=== PATIENT | female | born 1975 | race Caucasian/White ===

== ENCOUNTER → 2018-03-15 11:50 | Outpatient (CLI) | payer OTHER, SELFPAY ==
--- NOTE | 2018-03-17 16:48 | STRESSREP ---
Stress Test Report Treadmill EKG: Resting EKG: Normal sinus rhythm, normal intervals, no evidence of previous myocardial infarction. Treadmill EKG: The patient exercise according to Himanshu protocol for 9 minutes and 0 seconds achieving a maximum workload of 10.1 0 METS. Resting heart rate was initially 76 beats a minute elias to max of 1 71 bpm. This represented 97% of the maximal age-predicted heart rate. Resting blood pressure is 132/82, and elias to maximum 180/80. Test was terminated due to the attainment of target heart rate and dyspnea. During exercise the patient's heart rate increased as expected. Patient had subtle upsloping ST segment depression along the inferior lateral leads at peak exercise but did not reach criteria for ischemia. No arrhythmias noted. No anginal symptoms noted. Conclusions normal, adequate treadmill EKG. Negative for ischemia by EKG criteria. No anginal symptoms noted. No arrhythmias noted. Appropriate blood pressure response to exercise. Average exercise capacity for age. No complications.
== END ==
PROVIDERS: Family Provider Internal Medicine; PCP Internal Medicine
DX: R00.2 Palpitations (principal); R06.02 Shortness of breath; R07.9 Chest pain, unspecified
CPT/HCPCS: 93017; 93225; 93226

== ENCOUNTER 2018-12-22 14:39 | Emergency (ER) | payer OTHER, SELFPAY ==
[2018-12-22 14:40] VITALS: BP 150/96; PULSE 103; RESP 16; TEMP 36.8; O2SAT 99; BMI 29.5
--- NOTE | 2018-12-22 15:04 | CT_ITS ---
STUDY: CT BRAIN WITHOUT CONTRAST REASON FOR EXAM: Female, 43 years old. Weakness RADIATION DOSAGE (If Supplied By Facility): CTDIvol = ( 60.81 ) mGy, DLP = ( 1044.28 ) mGycm TECHNIQUE: Transaxial CT imaging of the brain was performed without administration of intravenous contrast material. Individualized dose optimization techniques were used for this CT. COMPARISON: No relevant priors. FINDINGS: Normal soft tissue structures. Normal calvarium. Normal size ventricles and extra-axial spaces for the patient's age. Normal white matter tracts of the cerebral hemispheres. Normal basal ganglia and thalami. Normal brainstem. Normal cerebellum. There is no intracranial hemorrhage. There are no findings of an acute ischemic infarction. Large mucous retention cyst in left maxillary sinus and mild mucosal thickening on the right. There is also mild mucosal thickening within left sphenoid sinus CT/Brain/Head without Contrast IMPRESSION: Normal unenhanced CT scan of the brain. Bilateral maxillary and left sphenoid sinus disease Electronically Signed: Armando Leon MD at 16:17 EDT , Service support ,
--- NOTE | 2018-12-22 15:04 | EKG12_ITS ---
Test Reason : DIZZINESS Blood Pressure : / mmHG Vent. Rate : 078 BPM Atrial Rate : 078 BPM P-R Int : 152 ms QRS Dur : 090 ms QT Int : 384 ms P-R-T Axes : 047 002 018 degrees QTc Int : 437 ms Normal sinus rhythm Nonspecific ST abnormality Abnormal ECG Confirmed by KATHLEEN LARSON ([id number]), content editor JULIANNE TROY ([id number]) on 12/25/2018 1:57:00 PM Referred By: AMMY Confirmed By:KATHLEEN LARSON
--- NOTE | 2018-12-22 15:09 | ED.DCSUM_ITS ---
- ER Visit Summary Date of Service: 12/22/18 Chief Complaint: Lightheaded, weak History of Present Illness: The patient is a 43 F who states she woke yesterday feeling lightheaded and weak. She is to hold onto things to go to the restroom. She laid in bed most of the day. She said she is a shaky feeling on the inside, worse on the left. She has an intermittent weightless feeling in her spine. Patient was seen by a neuromuscular specialist at the [facility] for paresthesias. She was told to be checked if she has any no neuro symptoms. She is to follow-up with him again in 6 months. Patient states symptoms are improved today but she is not yet back to baseline. She has had some mild d iarrhea but no abdominal pain. She denies vertigo. Physical Examination: Blood pressure is 150/96, heart rate 103. She is afebrile. Patient sitting upright in bed no acute distress. Head and neck examination is normal. Heart is regular rate and rhythm. Lung sounds are clear. Abdomen is soft nontender. Neuro exam reveals no deficits. Her NIH is 0. Patellar reflexes are 2+ bilaterally. Test Results: EKG is sinus at 78 with no acute ischemia. CBC and chemistry studies normal. Glucose is 119. Urinalysis normal. TSH normal at 2.43. CT the brain reveals normal brain. Bilateral maxillary and sphenoid sinus disease is noted. Emergency Department Course and Treatment: Patient was given IV fluids here. Test results are discussed with her. She does have symptoms of dizziness and does have worsening symptoms when she bends over and stands up. There is evidence of sinusitis on her CT scan. She will be treated with a course of Augmentin. Treatment Plan: [] Disposition: Discharge Impression: 1. Dizziness 2. Sinusitis This note was generated with [employer] dictation software. It may contain incorrect words, spelling, and punctuation that were not noted in review of the chart prior to signing ED Disposition - Plan for ED Patient: Disposition: Home or Assisted Living Instructions: ED Dizziness UKO, ED Sinusitis Abx Tx Prescriptions: Amox/Clavulanate Tablet [Augmentin Tablet] 875 mg PO Q12H #20 tablet Referrals: Mariposa Mckeon MD [Primary Care Provider] - 1 Week
[2018-12-22 15:24] LABS: Absolute Lymphocyte Count 1.53 X10^3/ul (0.83-4.51); Basophil# 0.02 X10^3/uL; Basophil% 0.3 % (0-1); Eosinophil# 0.12 X10^3/uL; Eosinophils% 1.7 % (0-5); Hemoglobin 13.5 g/dl (12.0-15.0); Lymphocyte # 1.53 X10^3/ul (4.0); Lymphocyte % 21.3 % (19-41); Mean Corp Hgb Conc 32.1 g/gl (32-36); Mean Corpuscular Hgb 27.4 pg (27.0-32.0); Mean Corpuscular Volume 85.2 fL (81-99); Monocyte# 0.55 X10^3/uL; Monocyte% 7.6 % (0-10); Neutrophil # 4.96 X10^3/uL (2.7-7.7); Neutrophil % 68.8 % (47-70); Platelet Count 441 K/mm3 (150-450); RBC Distribution Width CV 13.8 % (11.6-14.6); RBC Distribution Width SD 42.3 fl (35.1-43.9); Red Blood Count 4.93 M/mm3 (4.2-5.4); White Blood Count 7.2 K/mm3 (4.4-11.0)
[2018-12-22 15:34] LABS: POSITIVE COUNT NO; POSITIVE DIFFERENTIAL NO; POSITIVE MORPHOLOGY NO
[2018-12-22 15:46] LABS: Anion Gap 6 (5-15); BUN 16 mg/dL (7-18); BUN/Creat Ratio 16.6 RATIO (10-20); Calcium,Total 8.7 mg/dL (8.5-10.1); Chloride 107 mmol/L (98-107); Creatinine, Serum 0.97 mg/dL (0.55-1.02); EST Glomerular Filtration Rate 66 mL/min (>60); Est Glom Filt Rate - Afr Amer 80 mL/min (>60); Estimated Creatinine Clearance 68.56 ml/min; Glucose 119 mg/dL (74-106); Potassium 3.5 mmol/L (3.5-5.1); Sodium Level 139 mmol/L (136-145); Thyroid Stim Hormone (TSH) 2.43 uIU/mL (0.358-3.74)
[2018-12-22 16:12] LABS: Bacteria 0 SEEN /hpf (None Seen); Mucous, Urine 0 SEEN /hpf (<or=2+); Red Blood Cells-Urine 0 SEEN /hpf (0-5); White Blood Cells 0 SEEN /hpf (0-5)
[2018-12-22 16:21] LABS: Color, Urine Yellow (Yellow); Glucose, Dipstick Normal (Normal); Ketone-Dipstick Negative (Negative); Leukocyte Esterase-Dipstick Negative /ul (Negative); Nitrite-Dipstick Negative (Negative); Occult Blood-Urine 10 /ul (Negative); Protein-Dipstick Negative (Negative); Urine Bilirubin Dipstick Negative (Negative); Urine Clarity Clear (Clear); Urine Urobilinogen Normal (Normal); Urine pH 6.5 (5.0 - 8.0)
[2018-12-22 16:57] LABS: Squamous Epithelial Cells - UA 0-5 SEEN /hpf (5-10)
[2018-12-22] MEDS: Amox/Clavulanate 875 MG Tablet PO (17:40)
[2018-12-22 17:55] VITALS: BP 128/78; PULSE 75; RESP 16; O2SAT 99
== END 2018-12-22 18:01 | disposition home or self-care (01) ==
PROVIDERS: Emergency Provider Emergency Medicine; Family Provider Internal Medicine; PCP Internal Medicine
DX: R42 Dizziness and giddiness (principal); J32.0 Chronic maxillary sinusitis; J32.3 Chronic sphenoidal sinusitis; R53.1 Weakness; J45.909 Unspecified asthma, uncomplicated; G43.909 Migraine, unspecified, not intractable, without status migrainosus
CPT/HCPCS: 70450; 80048; 81001; 84443; 85025; 93005; 96360; 99285; J7030; J7040

== ENCOUNTER → 2021-03-23 12:50 | Outpatient (CLI) | payer OTHER, SELFPAY ==
[2021-03-23] MEDS: Methacholine Chloride 18 ml neb kit INHALATION (13:07)
--- NOTE | 2021-03-24 08:09 | BRONCHALL ---
Bronchoprovocation Challenge Bronchoprovocation Challenge Bronchoprovocation Challenge: INTRODUCTION: The patient is a 46-year-old female that presents for a bronchoprovocation challenge secondary to a diagnosis of shortness of breath. Respiratory therapist reported good patient effort and reproducible results. INTERPRETATION: Initial spirometry did not show any large airways obstructive ventilatory defect with preserved airflows throughout. The patient was then given progressively increasing doses of methacholine in a standardized fashion. At no point during testing to the patient's FEV1 drop to the threshold criteria to be considered a positive test. IMPRESSION: Negative methacholine challenge.
== END ==
PROVIDERS: PCP Internal Medicine; Referring Provider Internal Medicine; Visit Provider Internal Medicine
DX: R06.02 Shortness of breath (principal)
CPT/HCPCS: 94070; 95070

== ENCOUNTER → 2021-06-08 09:51 | Outpatient (CLI) | payer OTHER, SELFPAY ==
--- NOTE | 2021-06-08 10:01 | ECHOD_ITS ---
Reason For Study: Chest Pain Procedure This was a 2D Doppler, Color Flow transthoracic echocardiogram. Exam performed in department. Left Ventricle Normal LV size. Left ventricular systolic function is normal. The estimated ejection fraction is 65 %. Transmitral doppler flow suggestive of impaired relaxation of left ventricle. No regional wall motion abnormalities noted. Right Ventricle Normal RV size. Normal systolic function. Atria Normal left atrium. Normal right atrium. Normal atrial septum. Mitral Valve There is no mitral annular calcification. Normal mitral valve. Trivial mitral valve insufficiency. Tricuspid Valve Normal tricuspid valve. Trivial tricuspid valve insufficiency. Right ventricular systolic pressure estimated to be 21 mmHg. Aortic Valve Trisinus/trileaflet aortic valve. Normal aortic valve. Trivial aortic valve insufficiency. Pulmonic Valve The pulmonic valve is not well visualized. Trivial pulmonic valve insufficiency. Great Vessels Normal sized aortic root. Pericardium/Pleural No pericardial effusion. MMode/2D Measurements & Calculations LVIDd: 5.1 cm IVSd: 1.0 cm Ao root diam: 2.9 cm LVIDs: 2.8 cm LVPWd: 1.0 cm RVDd: 2.7 cm FS: 45.4 % LAV(MOD-sp4): 39.6 ml LVAd ap4: 24.3 cm2 LVAd ap2: 13.6 cm2 LVLd ap4: 7.4 cm LVLd ap2: 4.6 cm EDV(MOD-sp4): 66.8 ml EDV(MOD-sp2): 32.5 ml EDV(sp4-el): 67.5 ml EDV(sp2-el): 33.8 ml LVAs ap4: 13.3 cm2 LVLs ap4: 6.0 cm ESV(MOD-sp4): 25.6 ml ESV(sp4-el): 24.9 ml EF(MOD-sp4): 61.7 % EF(sp4-el): 63.1 % SV(MOD-sp4): 41.2 ml SV(sp4-el): 42.6 ml LA A4 area: 16.3 cm2 LA dimension(2D): 3.4 cm RA A4 area: 10.8 cm2 Doppler Measurements & Calculations MV E max jude: 71.7 cm/sec Lat Peak E' Jude: 9.9 cm/sec Med Peak E' Jude: 6.4 cm/sec MV A max jude: 94.5 cm/sec E/E' lat: 7.2 E/E' med: 11.2 MV E/A: 0.76 Ao V2 max: 135.2 cm/sec LV V1 max: 112.4 cm/sec PA V2 max: 121.3 cm/sec Ao max P.3 mmHg LV V1 max P.1 mmHg Ao V2 mean: 94.8 cm/sec Ao mean P.9 mmHg Ao V2 VTI: 26.3 cm TR max jude: 209.7 cm/sec TR max P.6 mmHg ECHO/Echo Complete Interpretation Summary Left ventricular systolic function is normal. The estimated ejection fraction is 65 %. Trivial mitral valve insufficiency. Trivial tricuspid valve insufficiency. Trivial aortic valve insufficiency. Trivial pulmonic valve insufficiency. Right ventricular systolic pressure estimated to be 21 mmHg. Transmitral doppler flow suggestive of impaired relaxation of left ventricle Ordering Physician: Matteo Varela Referring Physician: Mariposa Mckeon Performed By: Jaja Rouse, RDCS, RVT
== END ==
PROVIDERS: PCP Internal Medicine; Referring Provider Internal Medicine Cardiovascular Disease; Visit Provider Internal Medicine Cardiovascular Disease
DX: I20.9 Angina pectoris, unspecified (principal); R07.9 Chest pain, unspecified; R06.02 Shortness of breath; D68.59 Other primary thrombophilia
CPT/HCPCS: 93306

== ENCOUNTER → 2021-06-18 10:18 | Outpatient (CLI) | payer OTHER, SELFPAY ==
[2021-06-18 12:12] LABS: Hematocrit 42.2 % (37-47); Hemoglobin 13.5 g/dL (12.0-15.0); Mean Corpuscular Hgb 27.2 pg (27.0-32.0); Mean Corpuscular Volume 84.9 fL (81-99); Mean Platelet Vol. 9.4 fl (6.2-12.0); Platelet Count 467 K/mm3 (150-450); RBC Distribution Width CV 13.3 % (11.6-14.6); RBC Distribution Width SD 41.7 fl (35.1-43.9); Red Blood Count 4.97 M/mm3 (4.2-5.4); White Blood Count 6.6 K/mm3 (4.4-11.0)
[2021-06-18 12:47] LABS: AST(SGOT) 19 U/L (15-37); Alanine Aminotransfer ALT/SGPT 34 U/L (13-56); Albumin, Serum 3.9 g/dL (3.2-5.0); Alkaline Phosphatase 95 U/L (45-117); Anion Gap 6 (5-15); BUN 16 mg/dL (7-18); BUN/Creat Ratio 16.6 RATIO (10-20); Calcium,Total 9.2 mg/dL (8.5-10.1); Chloride 104 mmol/L (98-107); Creatinine, Serum 0.96 mg/dL (0.55-1.02); EST Glomerular Filtration Rate 66 mL/min (>60); Est Glom Filt Rate - Afr Amer 80 mL/min (>60); Globulin 4.1 g/dL (2.2-4.2); Glucose 113 mg/dL (74-106); Potassium 3.8 mmol/L (3.5-5.1); Sodium Level 138 mmol/L (136-145)
[2021-06-18 12:58] LABS: Vitamin B12 364 pg/mL (211-911)
== END ==
PROVIDERS: PCP Internal Medicine; Referring Provider Psychiatry & Neurology Neurology; Visit Provider Psychiatry & Neurology Neurology
DX: R25.1 Tremor, unspecified (principal); R20.0 Anesthesia of skin
CPT/HCPCS: 36415; 80053; 82607; 82746; 85027

== ENCOUNTER → 2021-07-10 12:57 | Outpatient (CLI) | payer OTHER, SELFPAY ==
--- NOTE | 2021-07-10 11:17 | CT_ITS ---
STUDY: CARDIAC CALCIUM SCORING - CT CHEST REASON FOR EXAM: Female, 46 years old. Angina pectoris LIMITED CT CHEST OVER READ ONLY RADIATION DOSAGE (If Supplied By Facility): CTDIvol = ( 23.37 ) mGy, DLP = ( 1195.05 ) mGycm TECHNIQUE: Axial non-enhanced images were acquired through the heart for the sole purpose of measuring coronary artery calcium. Individualized dose optimization techniques were used for this CT. COMPARISON: None. FINDINGS: Included portions of the lungs are clear. Airways are patent. Mediastinal contents are normal. Limited upper abdominal contents are unremarkable. IMPRESSION: Unremarkable extra cardiac portions of the scan. Please go to: [email or web address] , for a description of the calculator. Electronically Signed: Jesus Baker MD at 19:11 EST Tel , Service support , STUDY: CTA CORONARY REASON FOR EXAM: Female, 46 years old. Angina pectoris LIMITED CT CHEST OVER READ ONLY RADIATION DOSAGE (If Supplied By Facility): CTDIvol = ( 23.37 ) mGy, DLP = ( 1195.05 ) mGycm TECHNIQUE: Tomographic images were obtained of the heart and chest with a 64 detector row scanner using slice thicknesses of less than 1 mm. 50mL Isovue [id number] was injected in the arm. Post-processing of the angiographic images was performed, with multiplanar reformation and 3D reconstruction. Individualized dose optimization techniques were used for this CT. MEDICATION: HEART RATE AFTER MEDICATION: bpm TECHNICAL QUALITY: Excellent COMPARISON: None. CORONARY ANGIOGRAPHY: Coronary CT Angiogram Descriptors of Atherosclerosis: Stenosis: None (0%) Mild (< 50%) Moderate (50-70%) Severe (70-90%) Subtotal/Total Occlusion (90-100%) Non-Evaluable Plaque Characteristics: None Non-Calcified (Soft) Calcified Mixed FINDINGS: Included portions of the lungs are clear. Airways are patent. Mediastinal contents are normal. Limited upper abdominal contents are unremarkable. CT/Limited Chest CT w/CCTA IMPRESSION: Unremarkable extra cardiac portions of the scan. Electronically Signed: Jesus Baker MD at 19:11 EST Tel , Service support ,
[2021-07-10 13:14] VITALS: BP 169/89; PULSE 76; RESP 14; TEMP 37; O2SAT 99; BMI 32.3
[2021-07-10 13:38] VITALS: BP 169/89; PULSE 79
[2021-07-10] MEDS: Metoprolol Tartrate 5 MG/5 ML Vial IV (13:38)
[2021-07-10 13:39] VITALS: BP 169/89; PULSE 78
[2021-07-10] MEDS: Nitroglycerin SL (ED/IMG/CATH) 0.4 MG TABLET SL (13:39)
[2021-07-10 13:47] VITALS: BP 142/86; PULSE 69; RESP 16; O2SAT 96
--- NOTE | 2021-07-13 17:32 | CA.SCORE ---
Calcium Scoring Date of Study:: 07/10/21 Coronary Calcium Scoring: High-resolution Computed Tomographic imaging of the chest was performed on 07/10/2021 with particular attention paid to the coronary arteries. Images from the examination were analyzed for the presence and extent of coronary artery calcification , using coronary calcium quantification software. The patient tolerated the procedure well and there were no complications. The results of the coronary calcification analysis are provided below. Findings Coronary Artery Left Main (LM): 0 Left Anterior Descending (LAD): 0 Left Circumflex (LCX): 0 Right Coronary Artery (RCA): 0 Total Agatston Score: 0 Percentile Ranking: According to prepublished reference tables 50% of patients of the same gender and/or similar age had the same and/or lower scores. Calcium Scoring Interpretation: 0 No identifiable atherosclerotic plaque. Very low cardiovascular disease risk. <5% chance of presence coronary artery disease A Negative Examination 1-10 Minimal Plaque burden. Significant coronary artery disease very unlikely. 11-100 Mild plaque burden. Likely mild or minimal coronary atherosclerosis. 101-400 Moderate plaque burden Moderate non-obstructive coronary artery disease highly likely. Over 400 Extensive plaque burden. High likelihood of at least one significant coronary stenosis (>50% diameter) Calcium Score: 0 Negative Examination Conclusion: Continue cardiovascular risk factor value and care as deemed appropriate. This note was generated using a voice recognition system and there may be incorrect words, spelling or punctuation that were not noted when reviewing the office note prior to saving.
--- NOTE | 2021-07-13 17:34 | CCTA.WCONT ---
CCTA w/Cont Coronary Arteries Date of Study:: 07/10/21 Chest Pain Consent:: Per Patient High resolution CT imaging of the chest was performed on 07-10-2021 with attention to the coronary arteries. Images from the examination were analyzed for the presence and extent of coronary artery calcification using coronary calcium quantification software. Images from examination were also analyzed for the presence of angiographic findings concerning for underlying atherosclerotic coronary artery disease. Technical adequacy: Misregistration artifact is present The patient was reported as tolerating the procedure well without any obvious adverse events. LEFT MAIN CORONARY ARTERY: The left main coronary artery appears to be a large vessel giving rise to the left anterior descending and left circumflex coronary arteries. There is no angiographically significant appearing disease appreciated. LEFT ANTERIOR DESCENDING CORONARY ARTERY: The left anterior descending coronary artery is a large vessel coursing to the LV apex. The mid LAD appears to demonstrate an area of moderate appearing partially obstructive soft plaque. LEFT CIRCUMFLEX CORONARY ARTERY: The left circumflex coronary artery appears to be a large vessel giving rise to an obtuse marginal system. There is no angiographically significant appearing disease appreciated. RIGHT CORONARY ARTERY: The right coronary artery appears to be a large dominant vessel. There is no angiographically significant appearing disease appreciated. THORACIC AORTA: The thoracic aorta appears to be patent with no obvious angiographically significant appearing disease being appreciated. PULMONARY ARTERY: The main pulmonary artery and proximal portions of the right and left pulmonary artery appear to be patent with no obvious filling defects. LEFT ATRIUM/APPENDAGE: The left atrium/appendage does not appear to demonstrate any obvious filling defects. MITRAL VALVE: The mitral valve appears to be bileaflet. AORTIC VALVE: The aortic valve appears to be trileaflet. LEFT VENTRICLE: The left ventricle appears to demonstrate grossly normal left ventricular size, wall motion, and systolic function, however, the calculated LVEF is reported at 39%. CORONARY CALCIUM SCORE: The coronary calcium score is reported at 0. This note was generated using a voice recognition system and there may be incorrect words, spelling or punctuation that were not noted when reviewing the office note prior to saving.
== END | disposition home or self-care (01) ==
PROVIDERS: PCP Internal Medicine; Referring Provider Internal Medicine Cardiovascular Disease; Visit Provider Internal Medicine Cardiovascular Disease
DX: I20.9 Angina pectoris, unspecified (principal); R07.9 Chest pain, unspecified; R06.02 Shortness of breath; D68.59 Other primary thrombophilia
CPT/HCPCS: 75571; 75574; 76380; Q9967

== ENCOUNTER → 2021-07-13 11:23 | Outpatient (CLI) | payer OTHER, SELFPAY ==
--- NOTE | 2021-07-13 11:24 | MRI_ITS ---
HISTORY: Neck pain, fasciculations, cervical DJD. TECHNIQUE: Routine MRI of the cervical spine was performed. # of images incl. paperwork: 258. IV Contrast dosage and agent: None. COMPARISON: None. FINDINGS: VERTEBRAE: Vertebral body heights maintained. No significant bone marrow signal abnormality. ALIGNMENT: No anterior or posterior subluxation. CORD: Morphology and signal within normal limits. SOFT TISSUES: No prevertebral fluid collection. Mild mucosal thickening of the sphenoid sinus. Multiple small cervical lymph nodes. Diminutive right thyroid lobe. INTERVERTEBRAL DISCS: C2-3, C3-4: No significant posterior disc protrusion, central canal stenosis, or foraminal narrowing. C4-5, C5-6: Mild disc bulges without significant central canal stenosis. Mild bilateral foraminal narrowing. C6-7, C7-T1: No significant posterior disc protrusion, central canal stenosis, or foraminal narrowing. MRI/Spine Cervical (Routine) IMPRESSION: Mild degenerative disc disease without significant cervical spinal canal stenosis. at 1631 Reported and signed by: Angelina Pavon MD Electronically Signed: Angelina Pavon MD at 16:30 EST Tel , Service support ,
== END ==
PROVIDERS: PCP Internal Medicine; Visit Provider Psychiatry & Neurology Neurology
DX: M47.812 Spondylosis without myelopathy or radiculopathy, cervical region (principal)
CPT/HCPCS: 72141

== ENCOUNTER → 2021-07-15 10:24 | Outpatient (CLI) | payer OTHER, SELFPAY ==
[2021-07-15 13:12] LABS: Hemoglobin A1c 5.8 % (3.8-5.6)
== END ==
PROVIDERS: PCP Internal Medicine; Referring Provider Psychiatry & Neurology Neurology; Visit Provider Psychiatry & Neurology Neurology
DX: R73.9 Hyperglycemia, unspecified (principal)
CPT/HCPCS: 36415; 83036

== ENCOUNTER → 2021-08-06 08:53 | Outpatient (CLI) | payer OTHER, SELFPAY ==
[2021-08-06 10:27] LABS: Absolute Lymphocyte Count 1.68 X10^3/uL (0.83-4.51); Absolute Neutrophil Count 4.3 X10^3/uL (2.0-7.7); Basophil# 0.05 X10^3/uL; Basophil% 0.7 % (0-1); Eosinophil# 0.29 X10^3/uL; Eosinophils% 4.2 % (0-5); Hematocrit 40.7 % (37-47); Lymphocyte # 1.68 X10^3/ul (0.83-4.51); Lymphocyte % 24.4 % (19-41); Mean Corp Hgb Conc 31.9 g/dL (32-36); Mean Corpuscular Hgb 27.2 pg (27.0-32.0); Mean Corpuscular Volume 85.1 fL (81-99); Mean Platelet Vol. 9.3 fl (6.2-12.0); Monocyte# 0.49 X10^3/uL; Monocyte% 7.1 % (0-10); NRBC Flagged by Analyzer 0 % (0-5); Neutrophil # 4.34 X10^3/uL (2.7-7.7); Neutrophil % 63.2 % (47-70); Platelet Count 401 K/mm3 (150-450); RBC Distribution Width CV 13.8 % (11.6-14.6); RBC Distribution Width SD 43.1 fl (35.1-43.9); Red Blood Count 4.78 M/mm3 (4.2-5.4); White Blood Count 6.9 K/mm3 (4.4-11.0)
[2021-08-06 10:36] LABS: Internal QC Validated? YES +Cl - CLEAR BKGD; Pregnancy, Serum, hCG Quali. NEGATIVE Negative
[2021-08-06 10:43] LABS: AST(SGOT) 18 U/L (15-37); Alanine Aminotransfer ALT/SGPT 38 U/L (13-56); Albumin, Serum 3.7 g/dL (3.2-5.0); Alkaline Phosphatase 95 U/L (45-117); Anion Gap 8 (5-15); BUN 15 mg/dL (7-18); BUN/Creat Ratio 16.9 RATIO (10-20); Bilirubin, Direct 0.05 mg/dL (0.00-0.30); Calcium,Total 9.2 mg/dL (8.5-10.1); Chloride 104 mmol/L (98-107); Cholesterol 176 mg/dL (200); Creatinine, Serum 0.89 mg/dL (0.55-1.02); EST Glomerular Filtration Rate 72 mL/min (>60); Est Glom Filt Rate - Afr Amer 87 mL/min (>60); Globulin 3.9 g/dL (2.2-4.2); Glucose 96 mg/dL (74-106); High Density Lipoprotein 56 mg/dL; Potassium 3.8 mmol/L (3.5-5.1); Protein, Total 7.6 g/dL (6.4-8.2); Sodium Level 141 mmol/L (136-145); Triglycerides 126 mg/dL; Very Low Density Lipoprotein 25 mg/dL (5-40)
[2021-08-06 10:47] LABS: Prothrombin Time (Protime)PT. 12.6 SECONDS (11.7-14.9)
[2021-08-06 10:48] LABS: Partial Thromboplast Time 28.5 Seconds (24.1-36.2)
== END ==
PROVIDERS: PCP Internal Medicine; Referring Provider Nurse Practitioner Gerontology; Visit Provider Nurse Practitioner Gerontology
DX: R93.1 Abnormal findings on diagnostic imaging of heart and coronary circulation (principal)
CPT/HCPCS: 36415; 80048; 80061; 80076; 84703; 85025; 85610; 85730

== ENCOUNTER 2021-08-18 07:59 | Day surgery (SDC) | payer OTHER, SELFPAY ==
--- NOTE | 2021-08-05 11:59 | RAD_ITS ---
STUDY: X-RAY CHEST REASON FOR EXAM: Female, 46 years old. Cardiac Catheterization TECHNIQUE: PA and lateral views of the chest. COMPARISON: None. FINDINGS: The lungs are clear and expanded. There is no demonstrated pleural abnormality. Normal size heart. Normal mediastinum and starla. Normal visualized pulmonary arteries. Normal visualized aortic arch and descending thoracic aorta. Normal visualized thoracic spine. Normal visualized ribs, clavicles, and shoulders. There is no demonstrated abnormality of the visualized soft tissue structures of the upper abdomen. RAD/Chest PA and Lateral IMPRESSION: Normal x-ray examination of the chest. Electronically Signed: Anthony Munroe MD at 13:59 EST , Service support ,
[2021-08-17 08:44] VITALS: BMI 32.4
--- NOTE | 2021-08-17 16:48 | PCM.HP.BLA ---
History and Physical Date of Admission: 08/18/21 [facility] [id number] [place], [place] [id number] OFFICE VISITDate of Service: 08/05/21 MR#:[id number]:[id number]: LUCAS MCCLAIN [facility] #:[id number]:1975 Provider: MODESTO Falcon/Sex: 46/F [facility] HPI History of Present Illness Surgical H&P: Yes Details: This is a 46-year-old white female who presents for outpatient cardiovascular visit based upon concerns of exertional chest discomfort/tightness and shortness of breath/dyspnea. She states this has been going on for years but has worsened recently. She notices this more when she is exerting herself such as going up an incline or going upstairs. She will have to stop and rest to alleviate her symptoms. She states her chest tightness does radiate towards her shoulders, her neck, and her jaw. Her shortness of breath occurs with her chest discomfort and does not appear to occur at rest or at night. She states she has been evaluated from a pulmonary standpoint based upon concerns of her symptoms being pulmonary disease. This included PFTs and a methacholine challenge test. She states those studies were unremarkable. In the past she has had cardiac evaluation for concerns of palpitations and similar type symptoms. It appears that in March 2018 she had a Holter monitor which there showed sinus rhythm with a rare PAC and 2 isolated PVCs. In 2008 she had a stress echocardiogram performed at which time she exercised for approximately 9 minutes and 30 seconds on a Himanshu protocol with no obvious ECG changes or echocardiographic changes compatible with stress-induced myocardial ischemia. In 2017 she had a treadmill stress test performed for which she exercised on a Himanshu protocol for 9 minutes and again had no obvious anginal symptoms or ECG changes. She recently underwent a coronary CTA that demonstrated the LAD to have a mid moderate appearing partially obstructive soft plaque. From a cardiac standpoint, the patient is doing well. She does state that she will have an occasional palpitation. She continues to have chest pressure that starts in the middle of her chest and radiates outward. She states this occurs with exertion, once she stops exerting herself it goes away within a few minutes. She does state she has SOB with exertion-this is nothing new or worsening. She denies Orthopnea, and PND. She does not have bleeding issues; no blood in urine, stool or nosebleeds. She denies any decrease in energy level, myalgias, or claudication. She does not have edema, or sudden weight gain. She states she does have occasional episodes of dizziness/lightheadedness while standing for long periods of time. She denies syncopal or near syncopal episodes, and headaches. 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: No Accompanied by: None Is patient in pain?: No Allergies oseltamivir [From Tamiflu] Allergy (Severe, Verified 08/05/21 11:08) Hives azithromycin Allergy (Intermediate, Verified 08/05/21 11:08) Hives milk Allergy (Mild, Verified 08/05/21 11:08) Itchy Skin peanut Allergy (Mild, Verified 08/05/21 11:08) Itchy Skin soy Allergy (Mild, Verified 08/05/21 11:08) Itchy Skin Medications clobetasol 0.05 % topical cream 1 applic TOPICAL BID 02/16/18 [History Confirmed 08/05/21] magnesium 250 mg tablet 250 mg PO QDAY 02/16/18 [History Confirmed 08/05/21] sumatriptan succinate 50 mg tablet 50 mg PO ONCE 02/16/18 [History Confirmed 08/05/21] aspirin 81 mg tablet,delayed release 81 mg PO DAILY #1 tab 05/21/21 [Rx Confirmed 08/05/21] cholecalciferol (vitamin D3) 125 mcg (5,000 unit) capsule 125 mcg PO DAILY 06/18/21 [History Confirmed 08/05/21] flurbiprofen 100 mg tablet 100 mg PO TID PRN #90 tab 06/18/21 [Rx Confirmed 08/05/21] hydroxyzine pamoate 25 mg capsule 25 mg PO TID PRN #90 cap 06/18/21 [Rx Confirmed 08/05/21] vitamin B complex 1 cap PO DAILY 06/18/21 [History Confirmed 08/05/21] clopidogrel 75 mg tablet 75 mg PO DAILY #14 tab 08/05/21 [Rx Confirmed 08/05/21] Ejection fraction %: 65 to 70 PFSH Medical History Arthritis Asthma DDD (degenerative disc disease) Dysautonomia-like disorder History of anemia History of breast lump History of multiple miscarriages Hurthle cell neoplasm of thyroid Migraine Obesity Osteoarthritis Osteoarthritis of both hands Prediabetes Seasonal allergies Thrombophilia Thrombophilia Thyroid goiter Thyroid nodule Surgical History History of dilatation and curettage S/P partial thyroidectomy Family History Mother CVA (cerebral vascular accident) Diabetes CAD (coronary artery disease) Atrial fibrillation Father Diabetes Hypertension CAD (coronary artery disease) Cancer lung CVA (cerebral vascular accident) COPD (chronic obstructive pulmonary disease) Grandmother Colon cancer CVA (cerebral vascular accident) Grandfather Myocardial infarction, Onset Age: 70 Other Cerebral aneurysm Social History Smoking Status: Former smoker Tobacco: How many years used: 15 Electronic Cigarette Use: not used how long ago did patient quit smoking: about 5 years ago second hand exposure: No alcohol intake: current alcohol intake frequency: a few times a month Alcohol type: wine substance use type: does not use caffeine: Yes Type: coffee Number of servings: 1 and tea Number of servings: 2 ROS Const Const: Positive for fatigue (Unchanged from previous); Negative for weakness, headache(s), frequent falls, difficulty sleeping or excessive sweating Eyes Eyes: Negative for loss of peripheral vision, transient loss of vision, blurry vision, double vision or tunnel vision ENT ENT: Negative for headache(s), dizziness, Nosebleed/epistaxis or balance problems Cardio Chest Pain: Yes Character: other (Aching pressure) Onset: other (Exertion) Location: mid sternal Duration: minutes Relieving: rest Palpitations: Yes feels like its: fast and pounding Edema: Bilateral (Mild, resolves by morning) Muscle aches with walking: None Resp Respiratory: Positive for SOB with activity; Negative for SOB at rest, SOB orthopnea\SOB lying down, Cough or paroxysmal nocturnal dyspnea GI GI: Negative nausea, vomiting, heartburn or black,tarry stools : Negative for hematuria Musc Musc: Positive for muscle weakness (Sensation of muscle weakness in legs.) and joint pain; Negative for muscle aches/ myalgia or balance problems Skin Skin: Negative non-healing lesions, rash or unusual bruising Neuro Neuro: Positive for lightheadedness (Occasionally); Negative for dizziness, near syncope, syncope, frequent falls, headache(s), weakness, blurry vision, double vision or lack of coordination Phill Hematologic/Lymphatic: Negative for easy bleeding or easy bruising Endo Endo: Positive for fatigue (Unchanged from previous); Negative for excessive sweating or increased thirst/drinking Psych Psych: Negative for anxiety or depression Allergy Allergy/Immunology: Negative for hives and Negative for rash Cardiology Exam Const Appearance: cooperative and no acute distress Orientation: alert and oriented x3 Head Head: normal to inspection Ears: hearing grossly normal bilaterally Nose: external nose normal Face and Sinus: face symmetric Eyes General: appearance normal, both eyes and all related structures Eyelids: eyelids normal Conjunctivae: conjunctivae normal Pupils: PERRL and pupil size EOM: EOM intact bilaterally Neck Neck: normal visual inspection Carotids: Negative bruit Chest Chest inspection: normal inspection of the chest and normal respiratory effort Auscultation: Bilateral: Clear to Auscultation Cardio Palpation: normal PMI Rate: regular rate Rhythm: regular rhythm Heart sounds: S1 normal and S2 normal; Negative rub, gallop or murmur GI GI: normal to inspection and soft; Negative no hepatosplenomegaly Neuro General: patient alert, patient oriented x3 and CN's II-XI intact bilaterally Skin Skin: no rashes or lesions noted Extremities Pulses: Normal: Right Posterior Tibial Pulse, Left Posterior Tibial Pulse, Right Radial Pulse and Left Radial Pulse Lower Extremity Edema: None: Bilateral Psych Psychological: normal affect Supplemental Info Supplemental Information Echocardiogram from 06/08/2021: Interpretation Summary Left ventricular systolic function is normal. The estimated ejection fraction is 65 %. Trivial mitral valve insufficiency. Trivial tricuspid valve insufficiency. Trivial aortic valve insufficiency. Trivial pulmonic valve insufficiency. Right ventricular systolic pressure estimated to be 21 mmHg. Transmitral doppler flow suggestive of impaired relaxation of left ventricle CT Calcium Score 07/10/2021: Chest Pain Consent:: Per Patient High resolution CT imaging of the chest was performed on 07-10-2021 with attention to the coronary arteries. Images from the examination were analyzed for the presence and extent of coronary artery calcification using coronary calcium quantification software. Images from examination were also analyzed for the presence of angiographic findings concerning for underlying atherosclerotic coronary artery disease. Technical adequacy: Misregistration artifact is present The patient was reported as tolerating the procedure well without any obvious adverse events. LEFT MAIN CORONARY ARTERY: The left main coronary artery appears to be a large vessel giving rise to the left anterior descending and left circumflex coronary arteries. There is no angiographically significant appearing disease appreciated. LEFT ANTERIOR DESCENDING CORONARY ARTERY: The left anterior descending coronary artery is a large vessel coursing to the LV apex. The mid LAD appears to demonstrate an area of moderate appearing partially obstructive soft plaque. LEFT CIRCUMFLEX CORONARY ARTERY: The left circumflex coronary artery appears to be a large vessel giving rise to an obtuse marginal system. There is no angiographically significant appearing disease appreciated. RIGHT CORONARY ARTERY: The right coronary artery appears to be a large dominant vessel. There is no angiographically significant appearing disease appreciated. THORACIC AORTA: The thoracic aorta appears to be patent with no obvious angiographically significant appearing disease being appreciated. PULMONARY ARTERY: The main pulmonary artery and proximal portions of the right and left pulmonary artery appear to be patent with no obvious filling defects. LEFT ATRIUM/APPENDAGE: The left atrium/appendage does not appear to demonstrate any obvious filling defects. MITRAL VALVE: The mitral valve appears to be bileaflet. AORTIC VALVE: The aortic valve appears to be trileaflet. LEFT VENTRICLE: The left ventricle appears to demonstrate grossly normal left ventricular size, wall motion, and systolic function, however, the calculated LVEF is reported at 39%. CORONARY CALCIUM SCORE: The coronary calcium score is reported at 0. Stress Test Report: 03-17-2018 Treadmill EKG: Resting EKG: Normal sinus rhythm, normal intervals, no evidence of previous myocardial infarction. Treadmill EKG: The patient exercise according to Himanshu protocol for 9 minutes and 0 seconds achieving a maximum workload of 10.1 0 METS. Resting heart rate was initially 76 beats a minute elias to max of 1 71 bpm. This represented 97% of the maximal age-predicted heart rate. Resting blood pressure is 132/82, and elias to maximum 180/80. Test was terminated due to the attainment of target heart rate and dyspnea. During exercise the patient's heart rate increased as expected. Patient had subtle upsloping ST segment depression along the inferior lateral leads at peak exercise but did not reach criteria for ischemia. No arrhythmias noted. No anginal symptoms noted. Conclusions normal, adequate treadmill EKG. Negative for ischemia by EKG criteria. No anginal symptoms noted. No arrhythmias noted. Appropriate blood pressure response to exercise. Average exercise capacity for age. No complications. Holter: 03-15-2018 Sinus rhythm; rare PACs; 2 isolated PVCs Labs: No Data to Display Diagnostics: Electrocardiogram Echocardiogram Stress Test Coronary Angiography CT Pulmonary: No Data to Display Assessment and Plan Assessment and Plan (1) Abnormal cardiac CT angiography: Status: Acute Orders: Orders: 12 Lead EKG performed by BMS Today Basic Metabolic Profile (BMP) Today Partial Thromboplast Time Today Prothrombin Time w/INR Today CBC W/Diff, Automated Today Chest PA and Lateral Today ,Serum,hCG Quali. Today Lipid Profile Today Liver Profile Today Plan - Mary Mendez EXTERIOR WORK HELPER, EXTERIOR WORK HELPER-C: Patient recently underwent a Coronary CTA that demonstrated the LAD to have a mid moderate appearing partially obstructive soft plaque. Based upon the patient's previously reported symptoms and Coronary CTA results, patient will undergo a left cardiac catheterization to evaluate for coronary artery disease. Cardiac catheterization instructions given to patient. (2) Chest pain: Status: Acute Plan - Mary Mendez NP, EXTERIOR WORK HELPER-C: Patient continues to have chest discomfort with exertion. She recently underwent a coronary CTA which was abnormal. A cardiac catheterization will be obtained to evaluate for any coronary artery disease. (3) SOB (shortness of breath) on exertion: Status: Acute Plan - Mary Mendez NP, EXTERIOR WORK HELPER-C: Patient has complaints of shortness of breath on exertion. Patient's most recent echocardiogram from 06/08/2021 demonstrated normal left ventricular function with an EF of 65%. We will obtain a cardiac catheterization to evaluate for any coronary artery disease that may be causing her shortness of breath. Plan Details Other Medications: New: clopidogrel (Plavix) 75 mg PO DAILY 14 tabs 0RF Additional Comments: Patient will follow up in 4-6 weeks, or sooner if needed. Thank you for allowing me to participate in the care of your patient. Please don't hesitate to call if any issues arise. This note was generated using a voice recognition system and there may be incorrect words, spelling, or punctuation that were not noted when reviewing the office note prior to saving. Follow Up: 4-6 Weeks (EXTERIOR WORK HELPER/PA) COVID (Procedure Consent) Procedure Criteria Procedure Criteria: Yes Elective The surgeon/proceduralist and patient have discussed in detail the risk of exposure to and/or potential harm posed by the COVID-19 virus with having a surgery/procedure at this time versus the risk of delaying the surgery/procedure. It is not possible to know either the risk of delaying the surgery or procedure or chance of getting an infection with perfect accuracy, but a joint decision was made between the patient and the surgeon/proceduralist to proceed at this time with the scheduled surgery/procedure as indicated on the consent form. Coding Level of Care Code Off vis,est,level [address] angiography R93.1 Chest pain R07.9 SOB (shortness of breath) on exertion R06.02 Coding Level of Care Code Off vis,est,level [address] angiography R93.1 Chest pain R07.9 SOB (shortness of breath) on exertion R06.02 08/05/21 1619<Electronically signed by Mary Mendez EXTERIOR WORK HELPER EXTERIOR WORK HELPER-C>Date Mary Mendez EXTERIOR WORK HELPER EXTERIOR WORK HELPER-C 08/05/21 1645<Electronically signed by Matteo Varela MD>Cosigner Signature:Date (if applicable)Matteo Varela MD CC: Dr. Mariposa Mckeon MD ~ Assessment & Plan Addt'l Comments I have re-examined the patient. There are no clinical changes since date of exam
[2021-08-18 08:24] LABS: Internal QC Validated? YES +Cl - CLEAR BKGD; Pregnancy, Urine Negative Negative
--- NOTE | 2021-08-18 09:52 | CL.D_ITS ---
Patient Name: LUCAS MCCLAIN Study Date: 08/18/2021 Performing: Matteo Varela MD Ht: 66.14 inches 168 cm : 1975 Wt: 200.62 lbs 91 kg Age: 46 Gender: female BSA: 2.01 PROCEDURE(S) PERFORMED [id number])LHC/COR/LV CLINICAL PROFILE AND INDICATIONS Indications: Suspected CAD, Other: Abnormal Cardiac CTA Heart Failure: None Stress/Imaging Date: 03/17/2018 Angina Classification Anginal Classification w/in 2 Weeks: CCS III CAD Presentations: Stable angina. CONCLUSIONS Elevated Left Ventricular End Diastolic Pressure Normal LV size, wall motion,and systolic function LVEF: by LV gram 70 % Normal coronary arteries RECOMMENDATIONS Risk factor modification Medical therapy DESCRIPTION OF PROCEDURE The patient arrived to the procedure lab. The risks and benefits of the procedure as well as a full d escription of our services here and current unavailability of surgical backup were fully explained to the patient and/or their significant other prior to the catheterization. The Timeout was completed, verifying the correct patient and procedure. The patient's procedural site was prepped and draped in the usual fashion. Local anesthetic was given subcutaneously to right radial region with Lidocaine 2% . Using a modified Seldinger technique, arterial access was obtained via the right radial artery, a 6 Fr sheath was inserted. Left Coronary Artery selective angiography was performed in multiple views u sing a 5 Fr. 4.0 Holt[place] catheter. Right Coronary Artery selective angiography was then performed in mu ltiple views using a 5 Fr. 4.0 Holt[place] catheter. Left Ventriculography was performed in VUONG projection using a 5 Fr. Pigtail catheter. LV to AO pullback pressures were then recorded.The arterial sheath was pulled and a TR Band was applied for hemostasis CORONARY ANGIOGRAPHY DOMINANCE: Right Dominant LEFT HEART ASSESSMENT Left Ventricular Ejection Fraction: by LV Gram 70 % Normal LV wall motion Elevated Left Ventricular End Diastolic Pressure LVEDP: 27 mmHg LEFT MAIN: Angiographically normal LEFT ANTERIOR DESCENDING ARTERY: Angiographically normal CIRCUMFLEX ARTERY: Angiographically normal RIGHT CORONARY ARTERY: Angiographically normal AORTIC ROOT: Angiographically normal COMPLICATIONS No Complications PROCEDURE MEDICATIONS Versed 1 mg IV Fentanyl 50 mcg IV Versed 1 mg IV Fentanyl 50 mcg IV Oxygen: 2 L/min via nasal cannula Heparin given IA 08/18/2021 09:16:31 Verapamil 2.5mg, Ntg 100mcgs, 3000 units of Heparin given IA 08/18/2021 09:16:31 SUMMARY OF HEMODYNAMIC DATA Time AIR REST ECG 08:23:49 AO 129/85 (105) SA 09:19:16 AO 122/86 (103) 09:22:47 LV 191/-20, 28 09:25:42 LV 198/-23, 27 09:25:43 LV 198/-23, 27 09:25:48 LV 188/-19, 27 09:26:54 LVp 178/-17, 24 09:26:58 LVp 179/-15, 23 09:26:59 AOp 155/82 (112) 09:27:03 LVp 178/-17, 24 09:27:03 AOp 154/81 (111) 09:27:04 AOp 155/82 (112) 09:27:08 ECG 09:27:53 Signed By Matteo Varela MD On 08/18/2021 09:51:55 Matteo Varela MD
== END 2021-08-18 23:59 | disposition home or self-care (01) ==
LOC: CLSP 08:01
PROVIDERS: PCP Internal Medicine; Referring Provider Internal Medicine Cardiovascular Disease; Visit Provider Internal Medicine Cardiovascular Disease
DX: I20.8 Other forms of angina pectoris (principal); I50.1 Left ventricular failure, unspecified; R93.1 Abnormal findings on diagnostic imaging of heart and coronary circulation; R07.89 Other chest pain; R06.02 Shortness of breath; R00.2 Palpitations; Z87.891 Personal history of nicotine dependence; Z68.32 Body mass index [BMI] 32.0-32.9, adult; E66.9 Obesity, unspecified; I49.3 Ventricular premature depolarization; M19.90 Unspecified osteoarthritis, unspecified site; Z79.82 Long term (current) use of aspirin; Z79.02 Long term (current) use of antithrombotics/antiplatelets; Z79.899 Other long term (current) drug therapy; Z82.49 Family history of ischemic heart disease and other diseases of the circulatory system
CPT/HCPCS: 71046; 81025; 93458; 99152; 99153; J7040; C1769; C1894; Q9967

== ENCOUNTER 2021-09-03 08:47 | Outpatient (CLI) | payer OTHER, SELFPAY ==
[2021-09-15 14:09] LABS: Dopamine, UR 151 ug/L (Undefined); Epinephrine, 24Ur < 2 ug/24 hr (0-20); Epinephrine, Ur < 1 ug/L (Undefined); Metanephrine, Ur 43 ug/L (Undefined); Norepinephrine, 24Ur 52 ug/24 hr (0-135); Norepinephrine, Ur 29 ug/L (Undefined); Normetanephrines, 24Ur 344 ug/24 hr (131-612); Normetanephrines, Ur 191 ug/L (Undefined)
[2021-09-15 20:53] LABS: Dopamine, 24Ur 272 ug/24 hr (0-510); Metanephrines, 24Ur 77 ug/24 hr (36-209)
== END 2021-09-03 23:59 | disposition short-term general hospital (02) ==
PROVIDERS: PCP Internal Medicine; Referring Provider Internal Medicine Endocrinology, Diabetes & Metabolism; Visit Provider Internal Medicine Endocrinology, Diabetes & Metabolism
DX: G90.8 Other disorders of autonomic nervous system (principal)
CPT/HCPCS: 81050; 82384; 83835

== ENCOUNTER 2021-11-16 15:02 | Outpatient (CLI) | payer OTHER, SELFPAY ==
[2021-11-24 16:51] LABS: Copper, Serum or Plasma 116 ug/dL (80-158)
== END 2021-11-16 23:59 | disposition home or self-care (01) ==
PROVIDERS: PCP Internal Medicine; Referring Provider Psychiatry & Neurology Neurology; Visit Provider Psychiatry & Neurology Neurology
DX: R25.1 Tremor, unspecified (principal)
CPT/HCPCS: 36415; 82525

== ENCOUNTER → 2022-10-22 | Outpatient (CLI) | payer OTHER, SELFPAY | END | disposition home or self-care (01) | LOC: PSN 09:21 | PROVIDERS: PCP Internal Medicine; Visit Provider Internal Medicine Cardiovascular Disease | DX: R00.2 Palpitations (principal) | CPT/HCPCS: 93225; 93226 ==

== ENCOUNTER 2022-12-31 22:41 | Emergency (ER) | payer OTHER, SELFPAY ==
[2022-12-31 22:43] VITALS: BP 148/81; PULSE 76; RESP 16; TEMP 36.4; O2SAT 97; BMI 35.2
--- NOTE | 2022-12-31 23:10 | EKG12_ITS ---
Test Reason : DYSRHYTHMIA Blood Pressure : / mmHG Vent. Rate : 071 BPM Atrial Rate : 071 BPM P-R Int : 162 ms QRS Dur : 082 ms QT Int : 420 ms P-R-T Axes : 032 -09 007 degrees QTc Int : 456 ms Normal sinus rhythm Nonspecific ST abnormality Abnormal ECG Confirmed by ALVERTO ESCALERA, RISHI ([id number]), managing editor JULIANNE TROY ([id number]) on 01/03/2023 10:56:31 AM Referred By: PADMA Confirmed By:RISHI DEL TORO MD
--- NOTE | 2022-12-31 23:13 | EX.ED.DYSGE1 ---
HPI History of Present Illness Chief Complaint: Syncope Informant: patient Narrative Narrative: Patient presents with just not feeling right for the last hour or so. She states she feels lightheaded. She sort of feels like she is going to pass out but sort of does not. She sort of feels vertigo and has a sense of motion but not true spinning. There is no headache. She has a cold feeling throughout her torso including her chest but not having pain. She is not short of breath. She does feel bit sweaty. No abdominal pain. She has some nausea but she received Zofran by the squad and it is helping. She states her extremities feel prickly all over. Its not unilateral. Patient has also had mild nasal congestion for a couple weeks. It is getting better. She has been on [id number] medicines including Mucinex and a combination cold medicine that she thinks has phenylephrine in it. She states she is actually taking less than the prescribed maximum but has been taking it for couple weeks. Patient also is 47 and going through menstrual cycle changes. She has not had known hot flashes though. Evidently her has had the same symptoms within the last week or so that she is having now. [facility] Medical History Arthritis Asthma DDD (degenerative disc disease) Dysautonomia-like disorder Ectopic cardiac beats History of anemia History of breast lump History of multiple miscarriages Hurthle cell neoplasm of thyroid Migraine Obesity Osteoarthritis Osteoarthritis of both hands Palpitations Prediabetes Seasonal allergies Thrombophilia Thrombophilia Thyroid goiter Thyroid nodule Home Medications clobetasol 0.05 % topical cream 1 applic topical BID 02/16/18 [History Last Taken Unknown] magnesium 250 mg tablet 250 mg PO QDAY 02/16/18 [History Last Taken Unknown] sumatriptan succinate 50 mg tablet (Imitrex) 50 mg PO PRN PRN Headache 02/16/18 [History Last Taken Unknown] cholecalciferol (vitamin D3) 125 mcg (5,000 unit) capsule 125 mcg PO DAILY 06/18/21 [History Last Taken Unknown] vitamin B complex 1 cap PO DAILY 06/18/21 [History Last Taken Unknown] Bilateral wrist splints #2 ea 11/16/21 [Rx Last Taken Unknown] propranolol 60 mg capsule,24 hr,extended release 60 mg PO QAM #30 caps 10/20/22 [Rx Last Taken Unknown] ondansetron 4 mg disintegrating tablet 4 mg PO Q8H PRN PRN Nausea #10 tabs 01/01/23 [Rx Last Taken Unknown] promethazine 25 mg tablet 25 mg PO Q6H PRN PRN Nausea #10 TABLETS 01/01/23 [Rx Last Taken Unknown] Allergy/AdvReac Type Severity Reaction Status Date / Time oseltamivir [From Tamiflu] Allergy Severe Hives Verified 12/23/22 11:11 azithromycin Allergy Intermediate Hives Verified 12/23/22 11:11 milk Allergy Mild Itchy Skin Verified 12/23/22 11:11 peanut Allergy Mild Itchy Skin Verified 12/23/22 11:11 soy Allergy Mild Itchy Skin Verified 12/23/22 11:11 Family History Mother CVA (cerebral vascular accident) Diabetes CAD (coronary artery disease) Atrial fibrillation Father Diabetes Hypertension CAD (coronary artery disease) Cancer lung CVA (cerebral vascular accident) COPD (chronic obstructive pulmonary disease) Grandmother Colon cancer CVA (cerebral vascular accident) Grandfather Myocardial infarction, Onset Age: 70 Other Cerebral aneurysm Surgical History History of dilatation and curettage History of left heart catheterization (LHC) (~08/18/21) S/P partial thyroidectomy Social History Smoking Status: Former smoker Tobacco: How many years used: 15 Electronic Cigarette Use: not used how long ago did patient quit smoking: about 5 years ago second hand exposure: No alcohol intake: current alcohol intake frequency: a few times a month Alcohol type: wine substance use type: does not use caffeine: Yes Type: coffee Number of servings: 1 and tea Number of servings: 2 ROS ROS ED ROS Narrative A complete review of systems was performed and is negative except as documented in the history of present illness. Some specific details below. Constitutional: No recent fevers but she does feel cold. Please see history of present illness for generalized symptoms. EYE: No discharge, visual complaints, or pain. ENT: No difficulty swallowing. No swelling. No pain. No reflux symptoms. Ever, she states her mouth feels very dry. CV: She has a cold feeling in her chest but no pain pressure tightness. No palpitations. Respiratory: Mild URI symptoms but most of this is more upper airway and not so much coughing. There is no sputum production. She is not short of breath. GI: No abdominal pain. She has had some nausea but no vomiting diarrhea. No blood in stool. : No frequency dysuria or hematuria. No change in urinary output. Musculoskeletal: No recent trauma. No pains. No swelling. Skin: No rash. She does feel sweaty. However skin is not moist at this time. Neuro: No weakness or numbness. He has a generalized sense of motion and lightheadedness. Endocrine: No polyuria or polydipsia. EXAM Physical Exam Narrative Exam Narrative: CONSTITUTIONAL: Patient is nontoxic in appearance. The patient looks comfortable. Work of breathing looks normal. HEENT: No notable trauma. Mucous membranes to look dry. No sinus tenderness. No indication of pain with swallowing. EYES: No conjunctival injection. No proptosis. Pupils are normal and reactive no photophobia. NECK:No JVD. No stridor. CARDIOVASCULAR: Regular rate. Regular rhythm. No notable murmur. No JVD. Is not tachycardic or bradycardic. RESPIRATORY: No respiratory distress. Breathing is unlabored. No wheezes. No rhonchi. No rales. No pain with a deep breath. No chest wall tenderness. GASTROINTESTINAL: Mild obesity but not distended. Bowel sounds are normal. No tenderness. No guarding. No rebound. No palpable mass. No bruit is heard. GENITOURINARY: No tenderness over the bladder. No CVA tenderness. MUSCULOSKELETAL: Atraumatic. No peripheral edema. No cord. No tenderness along the deep venous system. No asymmetry. No distended veins. NEUROLOGICAL: Patient is alert and appropriate. No focal deficit noted. SKIN: No noted rashes. No diaphoresis. PSYCHIATRIC: Patient is calm. Mood is appropriate. Const Vital Signs: 12/31/22 22:43 12/31/22 22:52 01/01/23 00:42 Temperature 97.6 F L Temperature Source Oral Pulse Rate 76 77 Respiratory Rate 16 15 Respiratory Effort Normal Respiratory Pattern Normal Blood Pressure 148/81 H 140/70 H Blood Pressure Mean 103 93 Pulse Ox 97 98 Oxygen Delivery Method Room Air Room Air 01/01/23 01:47 Temperature Temperature Source Pulse Rate 77 Respiratory Rate 16 Respiratory Effort Respiratory Pattern Blood Pressure 138/76 H Blood Pressure Mean Pulse Ox 98 Oxygen Delivery Method MDM MDM MDM Narrative Medical decision making narrative: 23: 33 patient now feels that the tingling might be a little bit more on her left side than the right. We will add a CT scan of her head. My independent interpretation the patient's CT of the head shows no bleeding mass or acute process. Final reading is pending right now. My independent interpretation of the patient's single view chest x-ray shows no sign of infiltrate cardiomegaly or congestion. Final reading is also negative. Patient CBC is normal including white count hemoglobin and platelets. Patient's electrolytes do show some dehydration and elevation of her creatinine above a level that we have prior. Her glucose is also up a little bit at 208. This may be contributing to some of her overall feelings of weakness lightheadedness and dry mouth. We will treat this with IV fluids. At this time I will not initiate treatment for diabetes as this is a single elevated blood sugar. Magnesium is normal at 2.4 Troponin is normal at 4 is negative. I talked with patient again. She is still nauseated so we will try some Phenergan. She did get up and go to the bathroom. She had a stable gait but just felt overall weak. I think her symptoms are likely caused by combination of issues. 1 I think she has a viral illness similar to what her had. He had similar of the lightheaded dizziness feelings. She also has been using [id number] decongestants antihistamine type meds for a week or so. Although she is not using a high dose these can have an effect. This is likely causing dry mouth. This is likely contributing to some dehydration. She also has elevated glucose which is likely contributing to dehydration. But I do not think she needs to start meds for this today. I think this needs to be rechecked. I think it is appropriate for her to go home. There is no sign of acute neurologic deficit. She is stable and walking with good vitals and her work-up is overall normal other than some dehydration and elevated sugars. We did discuss returning with any focal symptoms. If she develops fevers, shortness of breath or any other concerns. I will write both Zofran and Phenergan to go. I think if she can get benefit from Zofran that would be the better med for her as the Phenergan does make you feel tired and can give you a slightly lightheaded feeling. But it seems like that helps her nausea better. We had considered Antivert. But she states she really does not have a spinning sensation or sense of motion. It is more of a generalized weak feeling. Final reading the CT is no acute intracranial abnormality but there was some sinus disease increased compared to prior but her symptoms do not really match sinusitis. Patient was rechecked again after Phenergan. She is feeling better. She still feels just a little lightheaded walking to the bathroom but she is okay. She would like to go home. I think this is reasonable option. Lab Data Attestation: I reviewed the patient's lab results. Labs: Laboratory Results - last 24 hr 12/31/22 12/31/22 12/31/22 23:20 23:20 23:20 WBC 7.3 RBC 4.48 Hgb 12.1 Hct 38.9 MCV 86.8 MCH 27.0 MCHC 31.1 L RDW Std Deviation 44.1 H RDW Coeff of [place] 13.8 Plt Count 376 MPV 9.5 Immature Gran % (Auto) 1.000 H Neut % (Auto) 61.5 Lymph % (Auto) 23.1 [place] % (Auto) 8.2 Eos % (Auto) 5.2 H Baso % (Auto) 1.0 Absolute Neuts (auto) 4.5 Absolute Lymphs (auto) 1.68 Nucleated RBC % 0 Sodium 140 Potassium 3.7 Chloride 106 Carbon Dioxide 24.0 Anion Gap 10 BUN 20 H Creatinine 1.21 H Estim Creat Clear Calc 52.65 Est GFR (MDRD) Af Amer 61 Est GFR (MDRD) Non-Af 50 L BUN/Creatinine Ratio 16.5 Glucose 208 H Calcium 8.9 Magnesium 2.4 Troponin I High Sens 4 Serum , Qual NEGATIVE Radiography Diagnostic Testing: Clinical Impression(s) from Imaging Studies Brain CT 12/31/22 23:35 IMPRESSION: No acute intracranial abnormality. Sinus disease increased compared to prior. Electronically Signed: Rosanne Kruger MD at 0:33 EDT , Chest X-Ray 12/31/22 23:42 IMPRESSION: No acute findings. Electronically Signed: Rosanne Kruger MD at 0:00 EDT , EKG Initial EKG: Comments: My independent interpretation the patient's EKG shows a normal sinus rhythm with overall rate of 71. Mild nonspecific changes but no sign of ST elevation. There are trace ST depression or nonspecific changes in the lateral V leads but this does look similar to 08-13-2021 Discharge Plan Triage Chief Complaint: Syncope ED Provider: Ray Fuentes Dx/Rx/DC Orders Clinical Impression: Light-headedness, Blood glucose elevated, Dehydration, Creatinine elevation, Nausea without vomiting Instructions: ED Dehydration (Adult), ED Dizziness, Uncertain Cause Prescriptions: New promethazine [promethazine] 25 mg tablet 25 mg PO Q6H PRN PRN (Reason: Nausea) Qty: 10 0RF ondansetron [ondansetron] 4 mg tablet,disintegrating 4 mg PO Q8H PRN PRN (Reason: Nausea) Qty: 10 0RF No Action sumatriptan succinate [Imitrex] 50 mg tablet 50 mg PO PRN PRN (Reason: Headache) clobetasol 0.05 % cream 1 applic TOPICAL BID magnesium 250 mg tablet 250 mg PO QDAY cholecalciferol (vitamin D3) 125 mcg (5,000 unit) capsule 125 mcg PO DAILY vitamin B complex Capsule 1 cap PO DAILY (DME) Bilateral wrist splints See Rx Instructions .Route .MEDSUPPLY Qty: 2 0RF Rx Instructions: Wear at night propranolol 60 mg capsule,extended release 24 hr 60 mg PO QAM Qty: 30 5RF Primary Care Provider: Mariposa Mckeon Referrals: Mariposa Mckeon MD [Primary Care Provider] - 3-5 Days Disposition Disposition: Home, Self Care Discharge Date/Time: 01/01/23 02:21
[2022-12-31] MEDS: 0.9% Normal Saline 1,000 ML 1000 ML IV (23:26)
--- NOTE | 2022-12-31 23:35 | CT_ITS ---
INDICATION: tingling EXAMINATION: CT BRAIN - CT Head or Brain W/O Contrast Injection TECHNIQUE: Multiple axial images were obtained of the head without intravenous contrast. A radiation dose optimization technique was used for this scan. IV Contrast dosage and agent: None. RADIATION DOSAGE (If Supplied By Facility): CTDIvol = ( 44.99 ) mGy, DLP = ( 796.11 ) mGycm COMPARISON: CT head 12/22/2018. FINDINGS: BRAIN: No acute bleed. No edema. Malloy-white matter differentiation is maintained. VENTRICLES AND SULCI: Not dilated. EXTRA-AXIAL: No hemorrhage, fluid collection, or mass. CALVARIUM / SKULL BASE: Unremarkable. FACE/SINUSES: Mucosal thickening in the maxillary and sphenoid sinuses increased compared to prior. The ethmoid air cells are partially opacified. SOFT TISSUES: Unremarkable. CT/Brain/Head without Contrast IMPRESSION: No acute intracranial abnormality. Sinus disease increased compared to prior. Electronically Signed: Rosanne Kruger MD at 0:33 EDT ,
--- NOTE | 2022-12-31 23:42 | RAD_ITS ---
INDICATION: chest symptoms EXAMINATION/TECHNIQUE: X-RAY - XR Chest 1 View AP portable. 11:39 PM. COMPARISON: FINDINGS: LINES/DEVICES: None. LUNGS: No consolidation. No pneumothorax. MEDIASTINUM: Unremarkable. CARDIAC SILHOUETTE: Not enlarged. BONES AND SOFT TISSUES: No acute abnormalities. RAD/Chest 1 View (Portable) IMPRESSION: No acute findings. Electronically Signed: Rosanne Kruger MD at 0:00 EDT ,
[2022-12-31 23:43] LABS: Absolute Lymphocyte Count 1.68 X10^3/uL (0.83-4.51); Absolute Neutrophil Count 4.5 X10^3/uL (2.0-7.7); Basophil# 0.07 X10^3/uL; Eosinophil# 0.38 X10^3/uL; Eosinophils% 5.2 % (0-5); Hematocrit 38.9 % (37-47); Hemoglobin 12.1 g/dL (12.0-15.0); Lymphocyte # 1.68 X10^3/ul (0.83-4.51); Lymphocyte % 23.1 % (19-41); Mean Corp Hgb Conc 31.1 g/dL (32-36); Mean Corpuscular Volume 86.8 fL (81-99); Mean Platelet Vol. 9.5 fl (6.2-12.0); Monocyte% 8.2 % (0-10); NRBC Flagged by Analyzer 0 % (0-5); Neutrophil # 4.48 X10^3/uL (2.7-7.7); Neutrophil % 61.5 % (47-70); Platelet Count 376 K/mm3 (150-450); RBC Distribution Width CV 13.8 % (11.6-14.6); RBC Distribution Width SD 44.1 fl (35.1-43.9); Red Blood Count 4.48 M/mm3 (4.2-5.4); White Blood Count 7.3 K/mm3 (4.4-11.0)
[2022-12-31 23:49] LABS: Internal QC Validated? YES +Cl - CLEAR BKGD; Pregnancy, Serum, hCG Quali. NEGATIVE Negative
[2022-12-31 23:57] LABS: Anion Gap 10 (5-15); BUN 20 mg/dL (7-18); BUN/Creat Ratio 16.5 RATIO (10-20); Calcium,Total 8.9 mg/dL (8.5-10.1); Chloride 106 mmol/L (98-107); Creatinine, Serum 1.21 mg/dL (0.55-1.02); EST Glomerular Filtration Rate 50 mL/min (>60); Est Glom Filt Rate - Afr Amer 61 mL/min (>60); Estimated Creatinine Clearance 52.65 ml/min; Glucose 208 mg/dL (74-106); Magnesium 2.4 mg/dL (1.6-2.6); Potassium 3.7 mmol/L (3.5-5.1); Sodium Level 140 mmol/L (136-145); Troponin-I HS 4 pg/mL (3.0-54.0)
[2023-01-01 00:42] VITALS: BP 140/70; PULSE 77; RESP 15; O2SAT 98
[2023-01-01] MEDS: proMETHazine 25 MG/ML Syringe 12.5 MG IM (00:47)
[2023-01-01 01:47] VITALS: BP 138/76; PULSE 77; RESP 16; O2SAT 98
== END 2023-01-01 02:21 | disposition home or self-care (01) ==
PROVIDERS: Emergency Provider Emergency Medicine; PCP Internal Medicine; Visit Provider Emergency Medicine
DX: R55 Syncope and collapse (principal); E86.0 Dehydration; R11.0 Nausea; R42 Dizziness and giddiness; Z87.891 Personal history of nicotine dependence; R73.9 Hyperglycemia, unspecified; G43.909 Migraine, unspecified, not intractable, without status migrainosus; Z79.899 Other long term (current) drug therapy; E89.0 Postprocedural hypothyroidism
CPT/HCPCS: 70450; 71045; 80048; 83735; 84484; 84703; 85025; 87428; 93005; 96360; 96372; 99285; J7030

== ENCOUNTER → 2023-01-13 | Outpatient (CLI) | payer OTHER, SELFPAY | END | disposition home or self-care (01) | LOC: SL 12:18 | PROVIDERS: PCP Internal Medicine; Visit Provider Internal Medicine Critical Care Medicine | DX: G47.10 Hypersomnia, unspecified (principal); E66.09 Other obesity due to excess calories; Z68.32 Body mass index [BMI] 32.0-32.9, adult | CPT/HCPCS: 95806 ==

== ENCOUNTER → 2023-02-25 | Outpatient (CLI) | payer OTHER, SELFPAY ==
[2023-02-25 12:31] LABS: Homocysteine 5.4 umol/L (3.2-10.7)
[2023-02-25 12:58] LABS: Hemoglobin A1c 6.2 % (3.8-5.6)
[2023-02-25 13:06] LABS: ALB/GLOB Ratio 0.9 RATIO (0.9-2.4); AST(SGOT) 18 U/L (15-37); Alanine Aminotransfer ALT/SGPT 31 U/L (13-56); Albumin, Serum 3.4 g/dL (3.2-5.0); Alkaline Phosphatase 70 U/L (45-117); Anion Gap 5 (5-15); BUN 13 mg/dL (7-18); BUN/Creat Ratio 16.1 RATIO (10-20); Calcium,Total 8.7 mg/dL (8.5-10.1); Chloride 104 mmol/L (98-107); Creatinine, Serum 0.81 mg/dL (0.55-1.02); EST Glomerular Filtration Rate 80 mL/min (>60); Est Glom Filt Rate - Afr Amer 97 mL/min (>60); Globulin 3.6 g/dL (2.2-4.2); Glucose 112 mg/dL (74-106); Magnesium 2.2 mg/dL (1.6-2.6); Sodium Level 136 mmol/L (136-145); Thyroid Stim Hormone (TSH) 2.36 uIU/mL (0.358-3.74)
== END | disposition home or self-care (01) ==
LOC: MTLAB 10:33
PROVIDERS: PCP Internal Medicine; Referring Provider Psychiatry & Neurology Neurology; Visit Provider Psychiatry & Neurology Neurology
DX: R25.1 Tremor, unspecified (principal); R73.9 Hyperglycemia, unspecified; Z15.89 Genetic susceptibility to other disease
CPT/HCPCS: 36415; 80053; 82140; 83036; 83090; 83735; 84443

== ENCOUNTER 2023-03-22 19:03 | Emergency (ER) | payer OTHER, SELFPAY ==
[2023-03-22 19:05] VITALS: BP 134/74; PULSE 80; RESP 16; TEMP 36.4; O2SAT 98; BMI 35.4
--- NOTE | 2023-03-22 20:28 | ED.VIS.LOWEX ---
HPI History of Present Illness HPI Narrative: Patient presents with pain and swelling to her left lower leg that has been getting worse over the past few days. Patient states she fell through a board 6 days ago. Patient states she had sutures placed at that time. Patient states she was initially started on Keflex. Patient states she went to an urgent care where they added doxycycline. Patient states she has been on the doxycycline for couple days. Patient denies any fevers or chills. Patient states the pain and swelling is better with elevation and worse with when it is in a dependent position. Patient denies any discharge or drainage. Chief Complaint: Wound Check Informant: patient Onset/Context/Timing Onset: Days (6) Context: Sudden Onset Timing: Continuous Quality of Pain: Burning Location: Left lower leg Worsened by: Dependent position Relieved by: Elevation Associated Symptoms Associated Symptoms: Negative for Parasthesia, Weakness or Loss of Funtion Narrative Tetanus Immunization: <5 years [facility] Medical History Arthritis Asthma DDD (degenerative disc disease) Dysautonomia-like disorder Ectopic cardiac beats History of anemia History of breast lump History of multiple miscarriages Hurthle cell neoplasm of thyroid Migraine Obesity Osteoarthritis Osteoarthritis of both hands Palpitations Prediabetes Seasonal allergies Thrombophilia Thrombophilia Thyroid goiter Thyroid nodule Home Medications clobetasol 0.05 % topical cream 1 applic topical BID 02/16/18 [History Last Taken Unknown] magnesium 250 mg tablet 250 mg PO QDAY 02/16/18 [History Last Taken Unknown] sumatriptan succinate 50 mg tablet (Imitrex) 50 mg PO PRN PRN Headache 02/16/18 [History Last Taken Unknown] cholecalciferol (vitamin D3) 125 mcg (5,000 unit) capsule 125 mcg PO DAILY 06/18/21 [History Last Taken Unknown] vitamin B complex 1 cap PO DAILY 06/18/21 [History Last Taken Unknown] Bilateral wrist splints #2 ea 11/16/21 [Rx Last Taken Unknown] propranolol 60 mg capsule,24 hr,extended release 60 mg PO QAM #30 caps 10/20/22 [Rx Last Taken Unknown] ondansetron 4 mg disintegrating tablet 4 mg PO Q8H PRN PRN Nausea #10 tabs 01/01/23 [Rx Last Taken Unknown] promethazine 25 mg tablet 25 mg PO Q6H PRN PRN Nausea #10 TABLETS 01/01/23 [Rx Last Taken Unknown] amoxicillin 875 mg-potassium clavulanate 125 mg tablet 875 mg (0.875 x 875-125 mg) PO Q12H #20 TABLETS 03/22/23 [Rx Last Taken Unknown] Allergy/AdvReac Type Severity Reaction Status Date / Time oseltamivir [From Tamiflu] Allergy Severe Hives Verified 03/22/23 19:05 azithromycin Allergy Intermediate Hives Verified 03/22/23 19:05 milk Allergy Mild Itchy Skin Verified 03/22/23 19:05 peanut Allergy Mild Itchy Skin Verified 03/22/23 19:05 soy Allergy Mild Itchy Skin Verified 03/22/23 19:05 Family History (Reviewed 01/25/23 @ 13:54 by Ashleigh Tolentino [employer], [employer]) Mother CVA (cerebral vascular accident) Diabetes CAD (coronary artery disease) Atrial fibrillation Father Diabetes Hypertension CAD (coronary artery disease) Cancer lung CVA (cerebral vascular accident) COPD (chronic obstructive pulmonary disease) Grandmother Colon cancer CVA (cerebral vascular accident) Grandfather Myocardial infarction, Onset Age: 70 Other Cerebral aneurysm Surgical History History of dilatation and curettage History of left heart catheterization (LHC) (~08/18/21) S/P partial thyroidectomy Social History Smoking Status: Former smoker Tobacco: How many years used: 15 Electronic Cigarette Use: not used how long ago did patient quit smoking: about 5 years ago second hand exposure: No alcohol intake: current alcohol intake frequency: a few times a month Alcohol type: wine substance use type: does not use caffeine: Yes Type: coffee Number of servings: 1 and tea Number of servings: 2 ROS ROS ED Constitutional Constitutional ED: Denies chills or fever(s) Eyes Eyes: Denies blurry vision or change in vision ENT ENT ED: Denies rhinorrhea or sore throat Cardiovascular Cardiovascular: Denies chest pain or palpitations Respiratory/Chest Respiratory/Chest: Denies cough or dyspnea Gastrointestinal Gastrointestinal: Denies nausea or vomiting Genitourinary Genitourinary ED: Denies dysuria or hematuria Musculoskeletal Musculoskeletal: Reports myalgias; Denies back pain or neck pain Integumentary Denies abscess or rash Neurologic Neurologic: Denies headache(s) or weakness Allergic/Immunologic Allergic/Immunologic ED: Denies mouth swelling or urticaria EXAM Physical Exam Const Vital Signs: 03/22/23 19:05 Temperature 97.6 F L Temperature Source Temporal Pulse Rate 80 Respiratory Rate 16 Blood Pressure 134/74 H Blood Pressure Mean 94 Pulse Ox 98 Oxygen Delivery Method Room Air Positive well nourished, well developed and obese General Appearance ED: well developed and NAD Nutritional Appearance: obese HEENT Reports moist mucous membranes Neck full ROM and supple Extremity Extremity Narrative: There is a healing laceration over the anterior aspect of the left lower leg. There is some surrounding erythema and tenderness. There is no purulent discharge or drainage noted. Sutures are in place. Sensation was intact to light touch bilaterally in the lower extremities. Strength is 5/5 bilaterally in the lower extremities. There are good posterior tibial and pedal pulses noted. Neuro oriented x3, CN's II-XII intact bilaterally, moves all extremities and no sensory deficits noted Sensorium / Orientation: alert Motor Exam: strength 5/5 throughout Psych mental status grossly normal MDM MDM MDM Narrative Medical decision making narrative: Patient is concerned for worsening infection. Patient was instructed to stop taking the Keflex. Patient was given a prescription for Augmentin. Patient was instructed to continue the doxycycline as prescribed. Patient was instructed to follow-up with her primary care physician in 3-5 days for wound recheck and suture removal. Patient did draw a line around the redness earlier today. Patient was advised that if the redness would spread outside of this line she should return to the emergency department. Patient was also instructed to return if any purulent discharge or drainage or high fevers. Patient was instructed return if worse in any way. Patient understood and was agreeable with the plan. All questions were answered. Discharge Plan Triage Chief Complaint: Wound Check ED Provider: Matthew Nichols Dx/Rx/DC Orders Clinical Impression: Wound infection, posttraumatic Instructions: ED Wound Check (Infection) Prescriptions: New amoxicillin-pot clavulanate [amoxicillin-pot clavulanate] 875-125 mg tablet 875 mg PO Q12H Qty: 20 0RF No Action sumatriptan succinate [Imitrex] 50 mg tablet 50 mg PO PRN PRN (Reason: Headache) clobetasol 0.05 % cream 1 applic TOPICAL BID magnesium 250 mg tablet 250 mg PO QDAY cholecalciferol (vitamin D3) 125 mcg (5,000 unit) capsule 125 mcg PO DAILY vitamin B complex Capsule 1 cap PO DAILY (DME) Bilateral wrist splints See Rx Instructions .Route .MEDSUPPLY Qty: 2 0RF Rx Instructions: Wear at night propranolol 60 mg capsule,extended release 24 hr 60 mg PO QAM Qty: 30 5RF promethazine [promethazine] 25 mg tablet 25 mg PO Q6H PRN PRN (Reason: Nausea) Qty: 10 0RF ondansetron [ondansetron] 4 mg tablet,disintegrating 4 mg PO Q8H PRN PRN (Reason: Nausea) Qty: 10 0RF Primary Care Provider: Mariposa Mckeon Referrals: Mariposa Mckeon MD [Primary Care Provider] - 3-5 Days Activity Restrictions/Additional Instructions: Stop taking the Keflex. Continue taking the doxycycline until gone. Take the Augmentin as prescribed until gone. Disposition Disposition: Home, Self Care
== END 2023-03-22 20:56 | disposition home or self-care (01) ==
PROVIDERS: Emergency Provider Emergency Medicine; PCP Internal Medicine; Visit Provider Emergency Medicine
DX: S81.812D Laceration without foreign body, left lower leg, subsequent encounter (principal); W17.89XD Other fall from one level to another, subsequent encounter; L08.89 Other specified local infections of the skin and subcutaneous tissue; E66.9 Obesity, unspecified; Z68.35 Body mass index [BMI] 35.0-35.9, adult; Z87.891 Personal history of nicotine dependence
CPT/HCPCS: 99283

== ENCOUNTER 2023-04-14 09:15 | Outpatient (RCR) | payer OTHER, SELFPAY ==
[2023-04-07 08:08] VITALS: BP 145/78; PULSE 80; RESP 16; TEMP 36.2; BMI 35.0
--- NOTE | 2023-04-07 08:31 | PCM.WC.HP ---
History of Present Illness Date of Service: 04/07/23 Chief Complaint: Nonhealing left lower extremity wound History of Wound: Patient is a 48-year-old female who follows to the wound care center today with complaint of left lower extremity nonhealing wound. She states on 03/16/2022 she fell through the deck and down 4 steps resulting in a laceration to the anterior aspect of the left lower extremity. She did present to [facility] and underwent radiographs which were negative. She underwent irrigation and closure of the laceration with 12 interrupted sutures superficially following absorbable deep closure. She was empirically started on Keflex and doxycycline also added. She followed up in the [facility] ED on 03/23/2023 due to the wound not improving with localized redness. Keflex was stopped and Augmentin was initiated. She did follow-up with her PCP office and underwent suture removal which that time some drainage was noted with some purulence and continued soreness about the wound. Augmentin was continued and she was referred to the wound care center for continued healing. Patient states she has finished the antibiotic and the redness and drainage have resolved. She denies N/V/F/chills. Denies further complaints. [facility] Medical History Arthritis Asthma DDD (degenerative disc disease) Dysautonomia-like disorder Ectopic cardiac beats History of anemia History of breast lump History of multiple miscarriages Hurthle cell neoplasm of thyroid Migraine Obesity Osteoarthritis Osteoarthritis of both hands Palpitations Prediabetes Seasonal allergies Thrombophilia Thrombophilia Thyroid goiter Thyroid nodule Home Medications clobetasol 0.05 % topical cream 1 applic topical BID 02/16/18 [History Last Taken Unknown] magnesium 250 mg tablet 250 mg PO QDAY 02/16/18 [History Last Taken Unknown] sumatriptan succinate 50 mg tablet (Imitrex) 50 mg PO PRN PRN Headache 02/16/18 [History Last Taken Unknown] cholecalciferol (vitamin D3) 125 mcg (5,000 unit) capsule 125 mcg PO DAILY 06/18/21 [History Last Taken Unknown] vitamin B complex 1 cap PO DAILY 06/18/21 [History Last Taken Unknown] Bilateral wrist splints #2 ea 11/16/21 [Rx Last Taken Unknown] propranolol 60 mg capsule,24 hr,extended release 60 mg PO QAM #30 caps 10/20/22 [Rx Last Taken Unknown] ondansetron 4 mg disintegrating tablet 4 mg PO Q8H PRN PRN Nausea #10 tabs 01/01/23 [Rx Last Taken Unknown] promethazine 25 mg tablet 25 mg PO Q6H PRN PRN Nausea #10 TABLETS 01/01/23 [Rx Last Taken Unknown] amoxicillin 875 mg-potassium clavulanate 125 mg tablet 875 mg (0.875 x 875-125 mg) PO Q12H #20 TABLETS 03/22/23 [Rx Last Taken Unknown] Allergy/AdvReac Type Severity Reaction Status Date / Time oseltamivir [From Tamiflu] Allergy Severe Hives Verified 03/22/23 19:05 azithromycin Allergy Intermediate Hives Verified 03/22/23 19:05 milk Allergy Mild Itchy Skin Verified 03/22/23 19:05 peanut Allergy Mild Itchy Skin Verified 03/22/23 19:05 soy Allergy Mild Itchy Skin Verified 03/22/23 19:05 Family History (Reviewed 01/25/23 @ 13:54 by Ashleigh Tolentino SPECIALIST WOUND CARE, [facility]) Mother CVA (cerebral vascular accident) Diabetes CAD (coronary artery disease) Atrial fibrillation Father Diabetes Hypertension CAD (coronary artery disease) Cancer lung CVA (cerebral vascular accident) COPD (chronic obstructive pulmonary disease) Grandmother Colon cancer CVA (cerebral vascular accident) Grandfather Myocardial infarction, Onset Age: 70 Other Cerebral aneurysm Surgical History History of dilatation and curettage History of left heart catheterization (LHC) (~08/18/21) S/P partial thyroidectomy Social History Smoking Status: Former smoker Tobacco: How many years used: 15 Electronic Cigarette Use: not used how long ago did patient quit smoking: about 5 years ago second hand exposure: No alcohol intake: current alcohol intake frequency: a few times a month Alcohol type: wine substance use type: does not use caffeine: Yes Type: coffee Number of servings: 1 and tea Number of servings: 2 ROS Constitutional Constitutional: Denies anorexia, change in weight, chills or fever(s) Eyes Eyes: Denies blurry vision, double vision or erythema ENT HEENT: Denies dysphagia, nasal congestion or sore throat Cardiovascular Cardiovascular: Denies chest pain, claudication or palpitations Respiratory/Chest Respiratory/Chest: Denies cough, shortness of breath at rest or wheezing Gastrointestinal Gastrointestinal: Denies abdominal pain, constipation, diarrhea, nausea or vomiting Genitourinary Genitourinary: Denies dysuria, hematuria, urinary frequency, urinary hesitancy, urinary incontinence or urinary urgency Musculoskeletal Musculoskeletal: Denies joint pain, joint stiffness or joint swelling Integumentary Integumentary: Denies lesions, pruritus, rash or sores Neurologic Neurologic: Denies dizziness, numbness or seizures Psychiatric Psychiatric: Denies depression Endocrine Endocrinology: Denies cold intolerance or heat intolerance Hematologic/Lymphatic Hematologic/Lymphatic: Denies easy bleeding or easy bruising Vital Signs Vital Signs Vital Signs: 04/07/23 08:08 Temperature 97.1 F L Temperature Source Temporal Pulse Rate 80 Respiratory Rate 16 Blood Pressure 145/78 H Blood Pressure Mean 100 Blood Pressure Source Monitor Blood Pressure Position Semi-Fowlers Blood Pressure Location Left Arm Weight Weight: 98.43 kg Body Mass Index (BMI) 35.0 Physical Exam Const alert, oriented x3 and no apparent distress General Appearance: cooperative HEENT normocephalic Eyes General Eye: normal appearance of both eyes Neck General: normal visual inspection Lymph Lymphatic: no lymphadenopathy noted and no lymphedema noted Resp normal respiratory effort Cardio regular rate and regular rhythm Extremity normal capillary refill, no joint enlargement, no calf tenderness and no pedal edema Extremity Narrative: DP and PT pulses palpable left lower extremity. Capillary fill time less than 2 seconds to all digits. There is some mild edema about the lateral ankle. Dermatological: There is a traumatic wound/laceration noted to the anterior distal lower extremity with mixed eschar and yellow fibrotic tissue within the wound bed. No erythema, no palpable fluctuance/bogginess, no purulent drainage, no malodor, no visible abscess, no lymphangitic streaking. Surrounding skin is healthy and atrophic. Musculoskeletal: Muscle strength 5 of 5 age-appropriate. Full range of motion to ankle joint, subtalar joint, midtarsal joint, and first metatarsophalangeal joint. Skin no rashes or lesions noted, skin turgor normal and no jaundice Neuro moves all extremities Debridement Note Debridement Note No debridement was completed: No debridement was completed today Post-Debridement Measurements and Additional Note: Post-Debridement Measurements/Treatment - Nurse 1 - General Ulcer Assessment Start: 04/07/23 08:08 Freq: Status: Active Protocol: BUSTER Activity Type Activity Date Activity User E-sign Co-sign Detail Recorded Client Recorded Date Recorded By Document 04/07/23 08:08 NERY [id number] 04/07/23 08:19 JF Edit Result 04/07/23 08:08 NERY (1) [id number] 04/07/23 08:21 NERY (1) Preferences => Verbal,Written, => Audio/Visual, => Demonstration Barriers to Learning => None Willingness to Engage in Self Management => High Activies Readiness to Engage in Self Management => High Activities Anxiety Level => Calm Cooperation => Cooperative Perception => Coherent Interest in Health Problem => Asks Questions Education Importance => Acknowledges Need Does Patient Smoke tobacco or other => No substances Smoking Status => Former smoker Is Patient Diabetic => No Recent Decline in Ability to Perform => Denies Any => Declines Cultural/Muslim Needs that may affect => No Treatment Plan Would you allow our hospital farm advisor to => No meet you for the purpose of spiritual/ emotional support? Party Plan Sales Consultant to contact place of hindu => No 04/07/23 08:08 - Today's Visit Information Type of service Initial Visit Arrival Mode Ambulatory Patient Identification Verified (Name & Yes ) Patient Requires Transmission-Based No Precautions Height and Weight Height 5 ft 6 in Weight 98.43 kg Weight in Pounds 217.0 lbs Weight Measurement Method Estimated by Patient Body Mass Index (BMI) 35.0 BMI Classification Obese BSA - Rene 2.07 Vital Signs Temperature (97.8 F-99.1 F) 97.1 F L Temperature Source Temporal Pulse Rate (60-100) 80 Pulse Location Monitor Respiratory Rate (12-18) 16 Respiratory rate source Observation Blood Pressure (90/60-120/80) 145/78 H Blood Pressure Mean 100 Source Monitor Position Semi-Fowlers Blood Pressure Location Left Arm History Since Last Visit- (Skip if this is Patient's initial visit) Left Footwear Regular Shoe Right Footwear Regular Shoe Pain Scale: 0-10 Numeric Is Patient Pain Free? Yes Teaching Assessment Preferences Verbal,Written, Audio/Visual, Demonstration Barriers to Learning None Willingness to Engage in Self Management High Activies Readiness to Engage in Self Management High Activities Anxiety Level Calm Cooperation Cooperative Perception Coherent Interest in Health Problem Asks Questions Education Importance Acknowledges Need Does Patient Smoke tobacco or other No substances Smoking Status Former smoker Is Patient Diabetic No Functional Assessment Recent Decline in Ability to Perform Denies Any Declines Culture/Muslim/Party Plan Sales Consultant Cultural/Muslim Needs that may affect No Treatment Plan Would you allow our hospital farm advisor to No meet you for the purpose of spiritual/ emotional support? Party Plan Sales Consultant to contact place of hindu No WC - Nurse 1 - General Ulcer Measurement Start: 04/07/23 08:08 Freq: Status: Active Protocol: Activity Type Activity Date Activity User E-sign Co-sign Detail Recorded Client Recorded Date Recorded By Document 04/07/23 08:08 NERY [id number] 04/07/23 08:19 NERY 04/07/23 08:08 Wound Center Nurse 1 1-Left leg ulcer -Combined with other wound No -Current Size (cm) - Length 1.7 -Current Size (cm) - Width 8.0 -Current Size (cm) - Depth 0.1 -Total Square Cm 13.60 -Photo Taken Yes -Epithelialization Small 1-33% -Tunneling No -Undermining/Tunneling No -Circular Undermining No -Exudate Amt Small -Exudate Type Serosanguineous -Wound Margin Flat & Intact -Granulation Amt Small (1-33%) -Granulation Quality Red -Slough/Fibrin Yes -Necrosis Amt Small (1-33%) -Necrotic Tissue Type Adherent Slough -Structure Exposed N/A -Texture (Jenny-wound Skin Appearance) Assessed, Localized Edema -Moisture (Jenny-wound Skin Appearance) Assessed,Dry/ Scaly -Color (Jenny-wound Skin Appearance) Assessed, Hemosiderin Staining -Temperature (Jneny-wound Skin No Abnormality Appearance) (Pt Warm) -Tenderness on Palpation (Jenny-wound No Skin Appearance) -Ulcer Cleansing Rinsed/ Irrigated with Saline -Foul Odor after Cleansing No -Anesthetic Used 5% Lidocaine Gel Lower Limb Edema Present Yes Left Calf (cm) 39.2 Left Ankle (cm) 24.0 Assessment/Plan Assessment/Plan (1) Hypertension: CODE(S): I10 - Essential (primary) hypertension (2) Laceration without foreign body, left lower leg, initial encounter: CODE(S): S81.812A - Laceration without foreign body, left lower leg, initial encounter (3) Delayed healing of traumatic wound: CODE(S): T14.8XXD - Other injury of unspecified body region, subsequent encounter (4) Non-pressure chronic ulcer of left calf with fat layer exposed: CODE(S): L97.222 - Non-pressure chronic ulcer of left calf with fat layer exposed PLAN: Plan Patient seen and evaluated No debridement was performed today, awaiting prior authorization. I have reviewed prior diagnostic data and radiographs of the left leg. Reviewed all prior treatment from PCP. Wound has noted to improve some from prior visit following antibiotic. Discussed pending approval debridement to be completed at next visit. Left anterior lower extremity wound demonstrates eschar, yellow fibrotic tissue, and some healthy granular tissue. No drainage noted. No signs of infection. Wound measures 1.5 cm x 8 cm x 0.2 cm Discussed washing and dressing site with triple antibiotic ointment and applying dry sterile dressing daily. Current plan is following debridement Solange application to the ulcerative site with daily dressing changes. I do feel currently wound site has not progressed secondary to prior infection, which has now resolved. Discussed adequate protein intake to aid in wound healing. Discussed signs and symptoms of infection today. Discussed if she notices increasing redness about the wound margins that spreads up the leg, purulent drainage from the wound site, increasing foul odor from the wound, or if she experiences fever greater than 101 degree, nausea, vomiting, chills that these are signs of progressing infection and she should report to the ED to receive IV antibiotics. She voices understanding of this today. The following work up and care recommendations were made: Dressing: Triple antibiotic ointment and dry sterile dressing, Tubigrip compression Wash: Soap and water Tissue growth optimization: None Offload: To ensure no pressure to the anterior leg wound site and to caution bumping ulcer site Vascular: DP and PT pulses palpable with adequate capillary fill time. Do not feel vascular is impeding healing progress. Edema: Tubigrip compression and elevation of lower extremity Infection: No signs of local infection Pain: May take Tylenol extra strength for discomfort Host factors: None I answered all the patient's questions. To return to the wound healing center in 1 week or call sooner if the patient has any questions or concerns.
[2023-04-14 09:06] VITALS: BP 146/89; PULSE 80; RESP 20; TEMP 36.4; BMI 35.0
--- NOTE | 2023-04-14 09:53 | PN.PCM_ITS ---
History of Present Illness Date of Service: 04/14/23 Chief Complaint: Nonhealing left lower extremity wound History of Wound: Patient is a 48-year-old female who follows to the wound care center today with complaint of left lower extremity nonhealing wound. She states on 03/16/2022 she fell through the deck and down 4 steps resulting in a laceration to the anterior aspect of the left lower extremity. She did present to [facility] and underwent radiographs which were negative. She underwent irrigation and closure of the laceration with 12 interrupted sutures superficially following absorbable deep closure. She was empirically started on Keflex and doxycycline also added. She followed up in the [facility] ED on 03/23/2023 due to the wound not improving with localized redness. Keflex was stopped and Augmentin was initiated. She did follow-up with her PCP office and underwent suture removal which that time some drainage was noted with some purulence and continued soreness about the wound. Augmentin was continued and she was referred to the wound care center for continued healing. Patient states she has finished the antibiotic and the redness and drainage have resolved. She denies N/V/F/chills. Denies further complaints. Subjective Subjective This is a 48-year-old otherwise healthy female who is following up for traumatic wound to the anterior left lower extremity. She has been applying antibiotic ointment and cleansing with soap and water daily. Continues protective dressing. Denies constitutional symptoms today. Denies further complaints today. Objective Data Objective Data Vital Signs: Vital Signs Temp Pulse Resp BP 97.5 F L 80 20 H 146/89 H 04/14/23 09:06 04/14/23 09:06 04/14/23 09:06 04/14/23 09:06 Weight: 98.43 kg Body Mass Index (BMI) 35.0 Physical Exam Const alert, oriented x3 and no apparent distress General Appearance: cooperative HEENT normocephalic Eyes General Eye: normal appearance of both eyes Neck General: normal visual inspection Lymph Lymphatic: no lymphadenopathy noted and no lymphedema noted Resp normal respiratory effort Cardio regular rate and regular rhythm Extremity normal capillary refill, no joint enlargement, no calf tenderness and no pedal edema Extremity Narrative: DP and PT pulses palpable left lower extremity. Capillary fill time less than 2 seconds to all digits. There is some mild edema about the lateral ankle. Dermatological: There is a traumatic wound/laceration noted to the anterior distal lower extremity with mixed eschar and yellow fibrotic tissue within the wound bed. No erythema, no palpable fluctuance/bogginess, no purulent drainage, no malodor, no visible abscess, no lymphangitic streaking. Surrounding skin is healthy and atrophic. Musculoskeletal: Muscle strength 5 of 5 age-appropriate. Full range of motion to ankle joint, subtalar joint, midtarsal joint, and first metatarsophalangeal joint. Skin no rashes or lesions noted, skin turgor normal and no jaundice Neuro moves all extremities Debridement Note Debridement Note Wound debrided: Anterior left lower extremity Laterality: Left Wound Grade/Stage: Tinajero stage I Type of Debridement: Excisional debridement Anesthesia Used: 5% Lidocaine Gel and - (3 cc 1% lidocaine plain) Depth: Down to and including healthy tissue and in the subcutaneous layer Percentage of wound debrided: 100 Instrument Used: 5mm curette, #15 blade and Forceps Tissue Removed: Eschar, fibrous, devitalized subcutaneous, biofilm, slough Severity: Fat Layer Exposed Amount of bleeding with debridement: Mild Bleeding Controlled with: Compression and gauze Patient tolerated procedure: Patient tolerated procedure well Post-Debridement Measurements and Additional Note: Post-Debridement Measurements/Treatment WC - Nurse 1 - General Ulcer Assessment Start: 04/07/23 08:08 Freq: Status: Active Protocol: BUSTER Activity Type Activity Date Activity User E-sign Co-sign Detail Recorded Client Recorded Date Recorded By Document 04/07/23 08:08 [id number] 04/07/23 08:19 JF Edit Result 04/07/23 08:08 NERY (1) [id number] 04/07/23 08:21 JF Document 04/14/23 09:06 DL [id number] 04/14/23 09:14 DL (1) Preferences => Verbal,Written, => Audio/Visual, => Demonstration Barriers to Learning => None Willingness to Engage in Self Management => High Activies Readiness to Engage in Self Management => High Activities Anxiety Level => Calm Cooperation => Cooperative Perception => Coherent Interest in Health Problem => Asks Questions Education Importance => Acknowledges Need Does Patient Smoke tobacco or other => No substances Smoking Status => Former smoker Is Patient Diabetic => No Recent Decline in Ability to Perform => Denies Any => Declines Cultural/Temple Needs that may affect => No Treatment Plan Would you allow our hospital educational assistant to => No meet you for the purpose of spiritual/ emotional support? Grease Refining Supervisor to contact place of latter day => No 04/07/23 04/14/23 08:08 09:06 WC - Today's Visit Information Type of service Initial Visit Follow-up Visit (Physician/DIRECTOR [employer] ) Arrival Mode Ambulatory Ambulatory Transfer Assistance None Patient Identification Verified (Name & Yes Yes ) Patient Requires Transmission-Based No No Precautions Height and Weight Height 5 ft 6 in Weight 98.43 kg Weight in Pounds 217.0 lbs Weight Measurement Method Estimated by Patient Body Mass Index (BMI) 35.0 35.0 BMI Classification Obese Obese BSA - Rene 2.07 Vital Signs Temperature (97.8 F-99.1 F) 97.1 F L 97.5 F L Temperature Source Temporal Temporal Pulse Rate (60-100) 80 80 Pulse Location Monitor Monitor Respiratory Rate (12-18) 16 20 H Respiratory rate source Observation Observation Blood Pressure (90/60-120/80) 145/78 H 146/89 H Blood Pressure Mean (mm Hg) 100 108 Source Monitor Monitor Position Semi-Fowlers Blood Pressure Location Left Arm History Since Last Visit- (Skip if this is Patient's initial visit) Have you changed medications since your No last visit? Any new allergies or adverse reactions No Had a fall/change in ADL's that may No increase risk of falls Signs or symptoms of abuse and/or No neglect since last visit Have you been in the hospital since your No last visit? Has dressing in place as prescribed Yes Has compression in place as prescribed No Has offloadiing in place as prescribed N/A Experienced any changes in pain level or No management Left Footwear Regular Shoe Right Footwear Regular Shoe Pain Scale: 0-10 Numeric Is Patient Pain Free? Yes Yes Teaching Assessment Preferences Verbal,Written, Audio/Visual, Demonstration Barriers to Learning None Willingness to Engage in Self Management High Activies Readiness to Engage in Self Management High Activities Anxiety Level Calm Cooperation Cooperative Perception Coherent Interest in Health Problem Asks Questions Education Importance Acknowledges Need Does Patient Smoke tobacco or other No substances Smoking Status Former smoker Is Patient Diabetic No Functional Assessment Recent Decline in Ability to Perform Denies Any Declines Culture/Temple/Gre[employer] Supervisor Cultural/Temple Needs that may affect No Treatment Plan Would you allow our hospital educational assistant to No meet you for the purpose of spiritual/ emotional support? Grease Refining Supervisor to contact place of latter day No WC - Nurse 1 - General Ulcer Measurement Start: 04/07/23 08:08 Freq: Status: Active Protocol: Activity Type Activity Date Activity User E-sign Co-sign Detail Recorded Client Recorded Date Recorded By Document 04/07/23 08:08 JF [id number] 04/07/23 08:19 JF Document 04/14/23 09:06 DL [id number] 04/14/23 09:14 DL 04/07/23 04/14/23 08:08 09:06 Wound Center Nurse 1 1-Left leg ulcer -Combined with other wound No -Current Size (cm) - Length 1.7 1.8 -Current Size (cm) - Width 8.0 6 -Current Size (cm) - Depth 0.1 0.5 -Total Square Cm 13.60 10.8 -Photo Taken Yes -Epithelialization Small 1-33% -Tunneling No -Undermining/Tunneling No -Circular Undermining No -Exudate Amt Small Medium -Exudate Type Serosanguineous Serosanguineous -Wound Margin Flat & Intact Distinct, Outline Attached -Granulation Amt Small (1-33%) None Present (0 %) -Granulation Quality Red -Slough/Fibrin Yes -Necrosis Amt Small (1-33%) Large (67-100%) -Necrotic Tissue Type Adherent Slough Adherent Slough -Structure Exposed N/A N/A -Texture (Jenny-wound Skin Appearance) Assessed, Localized Edema Localized Edema ,Scarring -Moisture (Jenny-wound Skin Appearance) Assessed,Dry/ No Abnormality Scaly -Color (Jenny-wound Skin Appearance) Assessed, No Abnormality Hemosiderin Staining -Temperature (Jenny-wound Skin No Abnormality No Abnormality Appearance) (Pt Warm) (Pt Warm) -Tenderness on Palpation (Jenny-wound No No Skin Appearance) -Ulcer Cleansing Rinsed/ Soap and Water Irrigated with Saline -Foul Odor after Cleansing No No -Anesthetic Used 5% Lidocaine 5% Lidocaine Gel Gel Lower Limb Edema Present Yes Left Calf (cm) 39.2 39 Left Ankle (cm) 24.0 24 WC - Nurse 2 - General Ulcer CM Notes Start: 04/07/23 08:08 Freq: Status: Active Protocol: Activity Type Activity Date Activity User E-sign Co-sign Detail Recorded Client Recorded Date Recorded By Document 04/07/23 09:20 PL [id number] 04/07/23 09:21 PL 04/07/23 09:20 Wound Center Nurse 2 1-Left leg ulcer -Procedure Performed No Pain Scale: 0-10 Numeric Is Patient Pain Free? Yes - Nurse 3 - General Ulcer D/C NN Start: 04/07/23 08:08 Freq: Status: Active Protocol: Activity Type Activity Date Activity User E-sign Co-sign Detail Recorded Client Recorded Date Recorded By Document 04/07/23 08:56 JF [id number] 04/07/23 08:57 JF Document 04/14/23 09:47 DL [id number] 04/14/23 09:48 DL 04/07/23 04/14/23 08:56 09:47 Wound Care Center Nurse 3 1-Left leg ulcer -Ulcer Cleansing Rinsed/ Rinsed/ Irrigated with Irrigated with Saline Saline -Foul Odor after Cleansing No No -Primary Dressing Applied Promogran Solange Matter -Other Dressing ATB ointment -Primary Dressing Covered/Secured with Dry Gauze Dry Gauze & Roll Gauze, Secured with Tape -Other Covering secure with tubigrip Coban -Promogran Solange Matter 2 Left -Tubular Bandage Single Layer -Size of Tubigrip Used Size D -Size D ($) 2 Treatment Response Procedure Tolerated Well Pain Scale: 0-10 Numeric Is Patient Pain Free? Yes Yes - Visit Discharge Discharge Condition Stable Stable Ambulatory Status Ambulatory Ambulatory Transportation Private Auto Private Auto Medication Reconcilliation completed & Yes provided to patient/care provider Clinical Summary of Care Provided Yes Assessment/Plan Assessment/Plan (1) Hypertension: CODE(S): I10 - Essential (primary) hypertension (2) Laceration without foreign body, left lower leg, initial encounter: CODE(S): S81.812A - Laceration without foreign body, left lower leg, initial encounter (3) Delayed healing of traumatic wound: CODE(S): T14.8XXD - Other injury of unspecified body region, subsequent encounter (4) Non-pressure chronic ulcer of left calf with fat layer exposed: CODE(S): L97.222 - Non-pressure chronic ulcer of left calf with fat layer exposed PLAN: Plan Patient seen and evaluated I have reviewed prior diagnostic data and radiographs of the left leg. Reviewed all prior treatment from PCP. Wound has noted to improve some from prior visit following antibiotic. Left anterior lower extremity wound demonstrates eschar, yellow fibrotic tissue, and some healthy granular tissue. No drainage noted. No signs of infection. Following local anesthetic block of 3 cc 1% lidocaine plain the ulceration was debrided as noted in the clinical panel above. Wound measures 1.3 cm x 5.7 cm x 0.5 cm. Solange was applied to the wound bed today and dressed with dry sterile dressing. She is to change dressing daily. Wound does demonstrate slight improvement versus previous visit. I do feel wound site had not progressed secondary to prior infection, which has now resolved. Discussed adequate protein intake to aid in wound healing. Discussed signs and symptoms of infection today. Discussed if she notices increasing redness about the wound margins that spreads up the leg, purulent drainage from the wound site, increasing foul odor from the wound, or if she experiences fever greater than 101 degree, nausea, vomiting, chills that these are signs of progressing infection and she should report to the ED to receive IV antibiotics. She voices understanding of this today. The following work up and care recommendations were made: Dressing: Solange and dry sterile dressing, Tubigrip compression. Change daily. Wash: Soap and water Tissue growth optimization: Solange Offload: To ensure no pressure to the anterior leg wound site and to caution bumping ulcer site Vascular: DP and PT pulses palpable with adequate capillary fill time. Do not feel vascular is impeding healing progress. Edema: Tubigrip compression and elevation of lower extremity Infection: No signs of local infection Pain: May take Tylenol extra strength for discomfort Host factors: None I answered all the patient's questions. To return to the wound healing center in 1 week or call sooner if the patient has any questions or concerns.
== END 2023-04-14 23:59 | disposition home or self-care (01) ==
LOC: WC 09:15
PROVIDERS: PCP Internal Medicine; Referring Provider Pharmacist Pharmacist Clinician (PhC)/ Clinical Pharmacy Specialist; Visit Provider Student in an Organized Health Care Education/Training Program
DX: L97.222 Non-pressure chronic ulcer of left calf with fat layer exposed (principal); S81.812S Laceration without foreign body, left lower leg, sequela; Z87.891 Personal history of nicotine dependence; I10 Essential (primary) hypertension; W17.89XS Other fall from one level to another, sequela; J45.909 Unspecified asthma, uncomplicated; Z79.899 Other long term (current) drug therapy
CPT/HCPCS: 11042; 99213; G0463

== ENCOUNTER 2023-05-04 09:27 | Day surgery (SDC) | payer OTHER, SELFPAY ==
[2023-05-04] VITALS (8 sets, daily range): BP systolic 108–143; BP diastolic 70–85; PULSE 68–81; RESP 16–18; TEMP 36.9–37.2; O2SAT 96–99; BMI 36.3
[2023-05-04] MEDS: Lactated Ringers 1,000 ML 15 ML IV (10:00)
[2023-05-04 10:02] LABS: Internal QC Validated? YES +Cl - CLEAR BKGD; Pregnancy, Urine Negative Negative
[2023-05-04] MEDS: Cefazolin 2 GM in 0.9% Normal Saline (100mL Bag) 100 ML IV (11:32)
[2023-05-04] MEDS: Bupivacaine Mpf 0.5% 30 ML VIAL (11:45)
--- NOTE | 2023-05-05 14:47 | OP.PCM_ITS ---
Problems Associated Problem List Diagnoses (1) Laceration without foreign body, left lower leg, initial encounter: (2) Delayed healing of traumatic wound: (3) Non-pressure chronic ulcer of left calf with fat layer exposed: Report of Operation Date of Procedure: 05/04/23 Pre-Operative Diagnosis: 1. Laceration without foreign body, right lower extremity 2. Chronic delayed healing ulceration, left leg l 3. Pain, left leg Post-Operative Diagnosis: 1. Laceration without foreign body, right lower extremity 2. Chronic delayed healing ulceration, left leg l 3. Pain, left leg Surgery/Procedure Performed:: 1. Surgical skin graft site prepped, left leg 2. Application of antibiotic skin graft substitute, left leg Description of Surgical Findings:: 1. Healthy granular tissue after debridement, left leg 2. Successful application of skin graft substitute, left leg Surgeon: Dionte Montgomery residential solar consultant: None Type of Anesthesia: Block,Regional and MAC Anesthesiologist: Izaiah Lei Special Medications: None Specimen's removed: None Drains: None Estimated Blood Loss (mL): 10 cc Fluids Replaced: Per anesthesia Description of Procedure: Description of Procedure: Indications For Operation: Mrs Geovani Dyer is a 48-year-old male who was admitted to [facility] for surgical skin geaft prep with application of skin graft substitute, left leg. Patient has been seen for multiple debridements in the wound care center and due to the length and chronicity of the full-thickness ulceration to the left leg it has been deemed necessary at this time to take the patient to the operating room for surgical skin graft prep debridement with application of skin graft substitute to help heal her chronic laceration. The nature of the problem, anticipated procedures, postop recovery/convalences and risk/complications include but not limited to infection, wound healing complications, hypertrophic scarring, numbness, tingling, chronic pain, CRPS, over and under correction, recurrence of deformity, DVT and or PE and the need for further surgery have been discussed in great detail with the patient. All questions have been answered to the patient's satisfaction. There are no guarantees given as to the outcome of the procedure. Description of Procedure: Under mild sedation, the patient was brought into the operating room and placed on the operating table in supine position. Once the patient was under MAC anesthesia, the left lower extremity was blocked at the level of the full thickness lacerations using approximately 10 cc 0.5% Marcaine plain in a v block fashion. Next, a timeout was then undertaken verifying the correct patient, extremity, visibility of preoperative markings, availability of the equipment. No tourniquet was used. The patient tolerated the procedure and anesthesia well in apparent satisfactory condition and was transported to the PACU for further monitoring prior to discharge back to the floor. Vital signs stable and vascular status intact to all digits bilateral. Post Operative Plan: Weightbearing: Weight bearing as tolerated in CAM Boot Antibiotics: 2 g Ancef x 1 dose given preoperatively DVT Prophylaxis: None Sun: None Dressing: Biovance 4x4 graft, adaptic, moist 4 x 4's, dry sterile dressing, application of single layer russ bandage X-Rays: None Pain Medication: Percocet 12/15/2024 dispense 28 tabs every 6 hours as needed for pain. Follow-up: Patient to follow-up [address] Montgomery in office. Grafts/Implants Used: Biovance 4x4 graft Complications None
== END 2023-05-04 14:00 | disposition home or self-care (01) ==
LOC: SDC 09:31 → AC 09:32
PROVIDERS: Anesthesiology; PCP Internal Medicine; Referring Provider Podiatrist Foot & Ankle Surgery; Visit Provider Podiatrist Foot & Ankle Surgery
PROC: (CPT 15004; principal; 2023-05-04 10:45)
DX: L97.222 Non-pressure chronic ulcer of left calf with fat layer exposed (principal); S81.812A Laceration without foreign body, left lower leg, initial encounter; E66.9 Obesity, unspecified; G43.829 Menstrual migraine, not intractable, without status migrainosus; F41.9 Anxiety disorder, unspecified; I10 Essential (primary) hypertension; Z79.899 Other long term (current) drug therapy; Z68.30 Body mass index [BMI] 30.0-30.9, adult; Z87.891 Personal history of nicotine dependence; X58.XXXA Exposure to other specified factors, initial encounter
CPT/HCPCS: 15004; 15275; 00400; 81025; J7120

== ENCOUNTER 2023-05-13 11:00 | Outpatient (RCR) | payer OTHER, SELFPAY ==
[2023-04-15 00:23] VITALS: BP 146/89; PULSE 80; RESP 20; TEMP 36.4; BMI 35.0
[2023-04-20 15:35] VITALS: BP 153/88; PULSE 81; RESP 16; TEMP 36.2; BMI 35.0
--- NOTE | 2023-04-20 17:30 | PCM.WC.HP ---
History of Present Illness Date of Service: 04/20/23 Chief Complaint: Nonhealing left lower extremity wound History of Wound: Patient is a 48-year-old female who follows to the wound care center today with complaint of left lower extremity nonhealing wound. She states on 03/16/2022 she fell through the deck and down 4 steps resulting in a laceration to the anterior aspect of the left lower extremity. She did present to [facility] and underwent radiographs which were negative. She underwent irrigation and closure of the laceration with 12 interrupted sutures superficially following absorbable deep closure. She was empirically started on Keflex and doxycycline also added. She followed up in the [facility] ED on 03/23/2023 due to the wound not improving with localized redness. Keflex was stopped and Augmentin was initiated. She did follow-up with her PCP office and underwent suture removal which that time some drainage was noted with some purulence and continued soreness about the wound. Augmentin was continued and she was referred to the wound care center for continued healing. Patient states she has finished the antibiotic and the redness and drainage have resolved. She denies N/V/F/chills. Denies further complaints. Progress of Wound: Chronic open laceration left leg [facility] Medical History Arthritis Asthma DDD (degenerative disc disease) Dysautonomia-like disorder Ectopic cardiac beats History of anemia History of breast lump History of multiple miscarriages Hurthle cell neoplasm of thyroid Migraine Obesity Osteoarthritis Osteoarthritis of both hands Palpitations Prediabetes Seasonal allergies Thrombophilia Thrombophilia Thyroid goiter Thyroid nodule Home Medications clobetasol 0.05 % topical cream 1 applic topical BID 02/16/18 [History Last Taken Unknown] magnesium 250 mg tablet 250 mg PO QDAY 02/16/18 [History Last Taken Unknown] sumatriptan succinate 50 mg tablet (Imitrex) 50 mg PO PRN PRN Headache 02/16/18 [History Last Taken Unknown] cholecalciferol (vitamin D3) 125 mcg (5,000 unit) capsule 125 mcg PO DAILY 06/18/21 [History Last Taken Unknown] vitamin B complex 1 cap PO DAILY 06/18/21 [History Last Taken Unknown] Bilateral wrist splints #2 ea 11/16/21 [Rx Last Taken Unknown] propranolol 60 mg capsule,24 hr,extended release 60 mg PO QAM #30 caps 10/20/22 [Rx Last Taken Unknown] ondansetron 4 mg disintegrating tablet 4 mg PO Q8H PRN PRN Nausea #10 tabs 01/01/23 [Rx Last Taken Unknown] promethazine 25 mg tablet 25 mg PO Q6H PRN PRN Nausea #10 TABLETS 01/01/23 [Rx Last Taken Unknown] amoxicillin 875 mg-potassium clavulanate 125 mg tablet 875 mg (0.875 x 875-125 mg) PO Q12H #20 TABLETS 03/22/23 [Rx Last Taken Unknown] Allergy/AdvReac Type Severity Reaction Status Date / Time oseltamivir [From Tamiflu] Allergy Severe Hives Verified 03/22/23 19:05 azithromycin Allergy Intermediate Hives Verified 03/22/23 19:05 milk Allergy Mild Itchy Skin Verified 03/22/23 19:05 peanut Allergy Mild Itchy Skin Verified 03/22/23 19:05 soy Allergy Mild Itchy Skin Verified 03/22/23 19:05 Family History Mother CVA (cerebral vascular accident) Diabetes CAD (coronary artery disease) Atrial fibrillation Father Diabetes Hypertension CAD (coronary artery disease) Cancer lung CVA (cerebral vascular accident) COPD (chronic obstructive pulmonary disease) Grandmother Colon cancer CVA (cerebral vascular accident) Grandfather Myocardial infarction, Onset Age: 70 Other Cerebral aneurysm Surgical History History of dilatation and curettage History of left heart catheterization (LHC) (~08/18/21) S/P partial thyroidectomy Social History Smoking Status: Former smoker Tobacco: How many years used: 15 Electronic Cigarette Use: not used how long ago did patient quit smoking: about 5 years ago second hand exposure: No alcohol intake: current alcohol intake frequency: a few times a month Alcohol type: wine substance use type: does not use caffeine: Yes Type: coffee Number of servings: 1 and tea Number of servings: 2 Vital Signs Vital Signs Vital Signs: 04/20/23 15:35 Temperature 97.2 F L Temperature Source Temporal Pulse Rate 81 Respiratory Rate 16 Blood Pressure 153/88 H Blood Pressure Mean 109 Blood Pressure Source Monitor Blood Pressure Position Sitting Blood Pressure Location Left Arm Oxygen Delivery Method Room Air Weight Weight: 98.43 kg Body Mass Index (BMI) 35.0 Physical Exam Narrative Vascular: DP and PT pulses are palpable. CFT brisk. Skin temperature is warm to warm from proximal ankle to distal digits. Nonpitting edema appreciated to the full-thickness ulceration on the anterior aspect of the left leg. Neurological: Light touch and epicritic station is intact. Dermatological: Full-thickness ulceration appreciated to the inner anterior aspect of the distal left leg. Wound base is fibrogranular in nature. There is blanchable erythema to the periwound. There is evidence of hyperkeratotic periwound.Ulceration to the left leg measures 2.2 x 5.9 x 0.6 cm. Excisional debridement down to and including subcutaneous tissue of the anterior aspect of the left leg ulceration. Predebridement measurements 1.8 x 5.3 x 0.5 cm. Postdebridement measurements 2.2 x 5.9 x 0.6 cm. Musculoskeletal: Moderate palpatory tenderness appreciated full-thickness ulceration to left leg. No pain with calf compression. Debridement Note Debridement Note Debridement Free Text: Excisional debridement down to and including subcutaneous tissue of the anterior aspect of the left leg ulceration. Predebridement measurements 1.8 x 5.3 x 0.5 cm. Postdebridement measurements 2.2 x 5.9 x 0.6 cm. 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 ) Arrival Mode Ambulatory Transfer Assistance None Patient Identification Verified (Name & Yes ) Patient Requires Transmission-Based No Precautions Height and Weight Body Mass Index (BMI) 35.0 BMI Classification Obese Vital Signs Temperature (97.8 F-99.1 F) 97.2 F L Temperature Source Temporal Pulse Rate (60-100) 81 Pulse Location Monitor Respiratory Rate (12-18) 16 Respiratory rate source Observation Oxygen Delivery Method Room Air Blood Pressure (90/60-120/80) 153/88 H Blood Pressure Mean 109 Source Monitor Position Sitting Blood Pressure Location Left Arm History Since Last Visit- (Skip if this is Patient's initial visit) Have you changed medications since your No last visit? Any new allergies or adverse reactions No Had a fall/change in ADL's that may No increase risk of falls Signs or symptoms of abuse and/or No neglect since last visit Have you been in the hospital since your No last visit? Has dressing in place as prescribed Yes Has compression in place as prescribed Yes Has offloadiing in place as prescribed N/A Experienced any changes in pain level or No management Left Footwear Regular Shoe Right Footwear Regular Shoe Pain Scale: 0-10 Numeric Is Patient Pain Free? Yes WC - Nurse 1 - General Ulcer Measurement Start: 04/20/23 15:34 Freq: Status: Active Protocol: Activity Type Activity Date Activity User E-sign Co-sign Detail Recorded Client Recorded Date Recorded By Document 04/20/23 15:35 DL [id number] 04/20/23 15:41 DL 04/20/23 15:35 Wound Center Nurse 1 1-Left leg ulcer -Combined with other wound No -Current Size (cm) - Length 1.8 -Current Size (cm) - Width 5.3 -Current Size (cm) - Depth 0.5 -Total Square Cm 9.54 -Photo Taken No -Epithelialization None Present -Tunneling No -Undermining/Tunneling No -Circular Undermining No -Exudate Amt Large -Exudate Type Serosanguineous -Wound Margin Distinct, Outline Attached -Granulation Amt Medium (34-66%) -Granulation Quality Red -Slough/Fibrin Yes -Necrosis Amt Medium (34-66%) -Necrotic Tissue Type Adherent Slough -Texture (Jenny-wound Skin Appearance) Assessed, Scarring -Moisture (Jenny-wound Skin Appearance) Assessed -Color (Jenny-wound Skin Appearance) Assessed, Erythema -Temperature (Jenny-wound Skin No Abnormality Appearance) (Pt Warm) -Tenderness on Palpation (Jenny-wound No Skin Appearance) -Ulcer Cleansing Rinsed/ Irrigated with Saline -Foul Odor after Cleansing No -Anesthetic Used 5% Lidocaine Gel Lower Limb Edema Present Yes Left Calf (cm) 39 Left Ankle (cm) 23.8 - Nurse 2 - General Ulcer CM Notes Start: 04/20/23 15:34 Freq: Status: Active Protocol: Activity Type Activity Date Activity User E-sign Co-sign Detail Recorded Client Recorded Date Recorded By Document 04/20/23 16:03 [id number] 04/20/23 16:11 04/20/23 16:03 Wound Center Nurse 2 1-Left leg ulcer -Time 16:04 -Correct Patient Yes -Correct Side, Site, Position Yes -Correct Procedure Yes -Procedure Performed Yes -Type of Procedure Debridement -Clinical Debridement Subcutaneous -Tissue Removed Subcutaneous -Post Debridement (cm) - Length 2.2 -Post Debridement (cm) - Width 5.9 -Post Debridement (cm) - Depth 0.6 -Total Square (Post) (cm) 12.98 -Area of Debridement (cm) - Length 2.2 -Area of Debridement (cm) - Width 5.9 -Total Square (Area) (cm) 12.98 -Tunneling No -Undermining/Tunneling No -Circular Undermining No -Wound/Ulcer Outcome Not Healed -Ulcer Cleansing Rinsed/ Irrigated with Saline -Foul Odor after Cleansing No -Bioengineered Tissue No -Bleeding Controlled with Silver Nitrate -Treatment Response Procedure Tolerated Well -Offloading No -Debridement - Subq, 1st 20sq cm Yes Pain Scale: 0-10 Numeric Is Patient Pain Free? Yes - Nurse 3 - General Ulcer D/C NN Start: 04/20/23 15:34 Freq: Status: Active Protocol: Activity Type Activity Date Activity User E-sign Co-sign Detail Recorded Client Recorded Date Recorded By Document 04/20/23 16:24 [facility] [id number] 04/20/23 16:26 [facility] 04/20/23 16:24 Wound Care Center Nurse 3 1-Left leg ulcer -Ulcer Cleansing Rinsed/ Irrigated with Saline -Foul Odor after Cleansing No -Other Dressing SALINE MOIST GAUZE PER KW DIESEL SERVICE APPRENTICE -Primary Dressing Covered/Secured with Dry Gauze & Roll Gauze, Secured with Tape Left -Tubular Bandage Single Layer -Size of Tubigrip Used Size C Treatment Response Procedure Tolerated Well Pain Scale: 0-10 Numeric Is Patient Pain Free? Yes WC - Visit Discharge Discharge Condition Stable Ambulatory Status Ambulatory Transportation Private Auto Assessment/Plan Assessment/Plan (1) Laceration without foreign body, left lower leg, initial encounter: CODE(S): S81.812A - Laceration without foreign body, left lower leg, initial encounter PLAN: Patient was examined evaluated. All findings were discussed with the patient. All questions were answered to the patient's satisfaction. Excisional debridement down to and including subcutaneous tissue of the anterior aspect of the left leg ulceration. Predebridement measurements 1.8 x 5.3 x 0.5 cm. Postdebridement measurements 2.2 x 5.9 x 0.6 cm. Patient is to apply saline wet-to-dry to the full-thickness ulceration, covered with 4 x 4's and with Tubigrip. Patient will be taken to the operating room with sterile excisional debridement to get the wound bed to the granular base as the patient cannot tolerate much debridement in the wound care center. All risk and benefits were discussed with the patient great detail. She is understanding would like to move forward with surgical intervention and graft placement. Follow-up in 1 week why we begin authorization for surgical intervention. (2) Delayed healing of traumatic wound: CODE(S): T14.8XXD - Other injury of unspecified body region, subsequent encounter
[2023-04-27 15:27] VITALS: BP 148/85; PULSE 84; RESP 20; TEMP 36.4; BMI 35.0
--- NOTE | 2023-04-27 18:02 | PCM.WC.PN ---
History of Present Illness Date of Service: 04/27/23 Chief Complaint: Nonhealing left lower extremity wound History of Wound: Patient is a 48-year-old female who follows to the wound care center today with complaint of left lower extremity nonhealing wound. She states on 03/16/2022 she fell through the deck and down 4 steps resulting in a laceration to the anterior aspect of the left lower extremity. She did present to [facility] and underwent radiographs which were negative. She underwent irrigation and closure of the laceration with 12 interrupted sutures superficially following absorbable deep closure. She was empirically started on Keflex and doxycycline also added. She followed up in the [facility] ED on 03/23/2023 due to the wound not improving with localized redness. Keflex was stopped and Augmentin was initiated. She did follow-up with her PCP office and underwent suture removal which that time some drainage was noted with some purulence and continued soreness about the wound. Augmentin was continued and she was referred to the wound care center for continued healing. Patient states she has finished the antibiotic and the redness and drainage have resolved. She denies N/V/F/chills. Denies further complaints. Progress of Wound: Chronic open laceration left leg Subjective Subjective Mrs. Olivo is a 48-year-old female presenting clinic today for follow-up of full-thickness ulceration secondary to laceration to left leg. Patient states she notices improvement with dressing changes. She states that the wound is getting a little bit smaller but still needs to be taken to the OR for surgical debridement secondary to not being able to handle excessive debridement in the wound care center. Patient is doing her home dressing changes she is grateful for her care. She denies any new onset of trauma. Denies constitutional symptoms. No other pedal complaints at this time. Objective Data Objective Data Vital Signs: Vital Signs Temp Pulse Resp BP O2 Del Method 97.5 F L 84 20 H 148/85 H Room Air 04/27/23 15:27 04/27/23 15:27 04/27/23 15:27 04/27/23 15:27 04/20/23 15:35 Oxygen Delivery Method Room Air Weight: 98.43 kg Body Mass Index (BMI) 35.0 Lab / Micro Data Attestation: I reviewed the patient's lab results. Physical Exam Narrative Neurovascular status unchanged. Full-thickness ulceration appreciated to the distal leg of the left lower extremity. Ulceration measures 5.4 x 2.3 x 0.5 cm. Wound base is fibrogranular in nature. No drainage. No probe to bone. No malodor. No sign of infection. Moderate palpatory tenderness is appreciated to full-thickness ulceration. No pain with calf compression. Excisional debridement down to and including subcutaneous tissue with number 5 mm dermal curette to the left leg ulceration. Predebridement measurements were 4.9 by's 2.0 x 0.3 cm. Postdebridement measurements are 5.4 x 2.3 x 0.5 cm. Wound was dressed with saline moist to dry and Tubigrip. Const alert, oriented x3 and no apparent distress Debridement Note Debridement Note Debridement Free Text: Excisional debridement down to and including subcutaneous tissue with number 5 mm dermal curette to the left leg ulceration. Predebridement measurements were 4.9 by's 2.0 x 0.3 cm. Postdebridement measurements are 5.4 x 2.3 x 0.5 cm. Wound was dressed with saline moist to dry and Tubigrip. 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 ) ) Arrival Mode Ambulatory Ambulatory Transfer Assistance None Transfer Board Patient Identification Verified (Name & Yes Yes ) Patient Requires Transmission-Based No No Precautions Height and Weight Body Mass Index (BMI) 35.0 35.0 BMI Classification Obese Obese Vital Signs Temperature (97.8 F-99.1 F) 97.2 F L 97.5 F L Temperature Source Temporal Temporal Pulse Rate (60-100) 81 84 Pulse Location Monitor Monitor Respiratory Rate (12-18) 16 20 H Respiratory rate source Observation Observation Oxygen Delivery Method Room Air Blood Pressure (90/60-120/80) 153/88 H 148/85 H Blood Pressure Mean (mm Hg) 109 106 Source Monitor Monitor Position Sitting Blood Pressure Location Left Arm History Since Last Visit- (Skip if this is Patient's initial visit) Have you changed medications since your No No last visit? Any new allergies or adverse reactions No No Had a fall/change in ADL's that may No No increase risk of falls Signs or symptoms of abuse and/or No No neglect since last visit Have you been in the hospital since your No No last visit? Has dressing in place as prescribed Yes Yes Has compression in place as prescribed Yes Has offloadiing in place as prescribed N/A N/A Experienced any changes in pain level or No No management Left Footwear Regular Shoe Right Footwear Regular Shoe Pain Scale: 0-10 Numeric Is Patient Pain Free? Yes Yes WC - Nurse 1 - General Ulcer Measurement Start: 04/20/23 15:34 Freq: Status: Active Protocol: Activity Type Activity Date Activity User E-sign Co-sign Detail Recorded Client Recorded Date Recorded By Document 04/20/23 15:35 DL [id number] 04/20/23 15:41 DL Document 04/27/23 15:27 DL [id number] 04/27/23 15:34 DL 04/20/23 04/27/23 15:35 15:27 Wound Center Nurse 1 1-Left leg ulcer -Combined with other wound No -Current Size (cm) - Length 1.8 4.9 -Current Size (cm) - Width 5.3 2 -Current Size (cm) - Depth 0.5 0.3 -Total Square Cm 9.54 9.8 -Photo Taken No No -Epithelialization None Present -Tunneling No -Undermining/Tunneling No -Circular Undermining No -Exudate Amt Large Medium -Exudate Type Serosanguineous Serosanguineous -Wound Margin Distinct, Distinct, Outline Outline Attached Attached -Granulation Amt Medium (34-66%) Small (1-33%) -Granulation Quality Red Red -Slough/Fibrin Yes -Necrosis Amt Medium (34-66%) Large (67-100%) -Necrotic Tissue Type Adherent Slough Adherent Slough -Structure Exposed N/A -Texture (Jenny-wound Skin Appearance) Assessed, Localized Edema Scarring ,Scarring -Moisture (Jenny-wound Skin Appearance) Assessed No Abnormality -Color (Jenny-wound Skin Appearance) Assessed, No Abnormality Erythema -Temperature (Jenny-wound Skin No Abnormality No Abnormality Appearance) (Pt Warm) (Pt Warm) -Tenderness on Palpation (Jenny-wound No No Skin Appearance) -Ulcer Cleansing Rinsed/ Soap and Water Irrigated with Saline -Foul Odor after Cleansing No No -Anesthetic Used 5% Lidocaine 5% Lidocaine Gel Gel Lower Limb Edema Present Yes Left Calf (cm) 39 Left Ankle (cm) 23.8 WC - Nurse 2 - General Ulcer CM Notes Start: 04/20/23 15:34 Freq: Status: Active Protocol: Activity Type Activity Date Activity User E-sign Co-sign Detail Recorded Client Recorded Date Recorded By Document 04/20/23 16:03 [id number] 04/20/23 16:11 Document 04/27/23 15:43 [id number] 04/27/23 15:47 04/20/23 04/27/23 16:03 15:43 Wound Center Nurse 2 1-Left leg ulcer -Time 16:04 15:44 -Correct Patient Yes Yes -Correct Side, Site, Position Yes Yes -Correct Procedure Yes Yes -Procedure Performed Yes Yes -Type of Procedure Debridement Debridement -Clinical Debridement Subcutaneous Subcutaneous -Tissue Removed Subcutaneous Subcutaneous -Post Debridement (cm) - Length 2.2 5.4 -Post Debridement (cm) - Width 5.9 2.3 -Post Debridement (cm) - Depth 0.6 0.5 -Total Square (Post) (cm) 12.98 12.42 -Area of Debridement (cm) - Length 2.2 5.4 -Area of Debridement (cm) - Width 5.9 2.3 -Total Square (Area) (cm) 12.98 12.42 -Tunneling No No -Undermining/Tunneling No No -Circular Undermining No No -Wound/Ulcer Outcome Not Healed Not Healed -Ulcer Cleansing Rinsed/ Rinsed/ Irrigated with Irrigated with Saline Saline -Foul Odor after Cleansing No No -Bioengineered Tissue No No -Bleeding Controlled with Silver Nitrate Pressure -Treatment Response Procedure Procedure Tolerated Well Tolerated Well -Offloading No No -Debridement - Subq, 1st 20sq cm Yes Yes Pain Scale: 0-10 Numeric Is Patient Pain Free? Yes Yes WC - Nurse 3 - General Ulcer D/C NN Start: 04/20/23 15:34 Freq: Status: Active Protocol: Activity Type Activity Date Activity User E-sign Co-sign Detail Recorded Client Recorded Date Recorded By Document 04/20/23 16:24 [facility] [id number] 04/20/23 16:26 [facility] Document 04/27/23 15:55 RB [id number] 04/27/23 15:56 RB 04/20/23 04/27/23 16:24 15:55 Wound Care Center Nurse 3 1-Left leg ulcer -Ulcer Cleansing Rinsed/ Irrigated with Saline -Foul Odor after Cleansing No -Other Dressing SALINE MOIST saline GAUZE PER KW moistened gauze GRAVEDIGGER -Primary Dressing Covered/Secured with Dry Gauze & Dry Gauze & Roll Gauze, Roll Gauze, Secured with Secured with Tape Tape Left -Tubular Bandage Single Layer Single Layer -Size of Tubigrip Used Size C Size D -Size D ($) 1 Treatment Response Procedure Procedure Tolerated Well Tolerated Well Pain Scale: 0-10 Numeric Is Patient Pain Free? Yes Yes WC - Visit Discharge Discharge Condition Stable Stable Ambulatory Status Ambulatory Ambulatory Transportation Private Auto Private Auto Medication Reconcilliation completed & No provided to patient/care provider Clinical Summary of Care Provided Yes Assessment/Plan Assessment/Plan (1) Laceration without foreign body, left lower leg, initial encounter: CODE(S): S81.812A - Laceration without foreign body, left lower leg, initial encounter PLAN: Patient was examined and evaluated. All findings were discussed with the patient. All questions were answered to the patient satisfaction. Excisional debridement down to and including subcutaneous tissue with number 5 mm dermal curette to the left leg ulceration. Predebridement measurements were 4.9 by's 2.0 x 0.3 cm. Postdebridement measurements are 5.4 x 2.3 x 0.5 cm. Wound was dressed with saline moist to dry and Tubigrip. Patient to continue home dressing changes as instructed. Patient has been cleared by her primary doctor and she will call the office to schedule her outpatient OR surgery with Dr. Motngomery next week. Patient agreeable for care and will follow up in the operating room. (2) Delayed healing of traumatic wound: CODE(S): T14.8XXD - Other injury of unspecified body region, subsequent encounter (3) Non-pressure chronic ulcer of left calf with fat layer exposed: CODE(S): L97.222 - Non-pressure chronic ulcer of left calf with fat layer exposed
--- NOTE | 2023-05-04 14:57 | OP.PCM_ITS ---
Problems Associated Problem List Diagnoses (1) Laceration without foreign body, left lower leg, initial encounter: (2) Non-pressure chronic ulcer of left calf with fat layer exposed: (3) Delayed healing of traumatic wound: Report of Operation Date of Procedure: 05/04/23 Pre-Operative Diagnosis: 1. Laceration without foreign body, left lower extremity 2. Delayed healing full-thickness wound, left lower extremity 3. Pain, left leg Post-Operative Diagnosis: 1. Laceration without foreign body, left lower extremity 2. Delayed healing full-thickness wound, left lower extremity 3. Pain, left leg Surgery/Procedure Performed:: 1. Surgical preparation of skin graft site, left leg 2. Application of skin graft substitute, left leg Description of Surgical Findings:: 1. After surgical debridement, 100% granular tissue with sanguinous drainage to the left leg 2. Application of skin graft substitute, biovance, left leg Surgeon: Dionte Montgomery prosthetic dentist: None Type of Anesthesia: Block,Regional and MAC Anesthesiologist: Izaiah Lei Special Medications: None Specimen's removed: None Drains: None Estimated Blood Loss (mL): 10 mL Fluids Replaced: Per anesthesia Description of Procedure: Indications For Operation: This is a 48-year-old female who was admitted to [facility] for laceration without foreign body to the left lower extremity. Patient has been seen at the wound care center with multiple outpatient debridements and due to the slowing as well as chronicity of the open wound on the left leg it has deemed necessary at this time to take the patient to the operating room for surgical debridement for skin graft prep as well as application of amniotic skin graft substitute all of the left lower extremity. The nature of the problem, anticipated procedures, postop recovery/convalences and risk/complications include but not limited to infection, wound healing complications, hypertrophic scarring, numbness, tingling, chronic pain, CRPS, over and under correction, recurrence of deformity, DVT and or PE and the need for further surgery have been discussed in great detail with the patient. All questions have been answered to the patient's satisfaction. There are no guarantees given as to the outcome of the procedure. Description of Procedure: Under mild sedation, the patient was brought into the operating room and placed on the operating table in supine position. Once the patient was under monitored anesthesia care anesthesia, the left lower extremity was blocked using approximately 10 cc 0.5% Marcaine plain and V-block fashion proximal to the full-thickness ulceration. Next, a timeout was then undertaken verifying the correct patient, extremity, visibility of preoperative markings, availability of the equipment. No tourniquet was used. Next, attention was directed to the full-thickness ulceration to the left leg. Using Masonic's the wound was surgically prepped for skin graft application down to and including subcutaneous tissue, muscle and fascia. Sanguinous drainage was noted after debridement. Predebridement measurements were 4.5 x 1.7 x 0.3 cm. Postsurgical debridement was 5.7 x 3.5 x 0.7 cm. Next, using a 4 x 4 sheet of biovance amniotic skin graft substitute. The skin graft substitute was placed in the full-thickness ulceration without incident. The left lower extremity was wiped clean and patted dry. Adaptic was placed over skin graft substitute and held in place with Steri-Strips. Moist saline gauze was applied over the Adaptic followed by dry sterile dressing and a single layer Arellano compression bandage was donned to the left lower extremity. The patient tolerated the procedure and anesthesia well in apparent satisfactory condition and was transported to the PACU for further monitoring prior to discharge back to the floor. Vital signs stable and vascular status intact to all digits bilateral. Post Operative Plan: Weightbearing: Weightbearing as tolerated to the left lower extremity in surgical boot Antibiotics: 2 g Ancef x1 dose given preoperatively DVT Prophylaxis: None Sun: None Dressing: Biovance skin graft substitute, Adaptic, dry sterile dressing and a single layer Arellano compression bandage X-Rays: None Pain Medication: Percocet 5/325, ibuprofen 800 mg Follow-up: Patient will follow-up Tuesday in the office of Dr. Montgomery followed by wound care center on Tuesday with Dr. Montgomery negative pressure VAC application. Grafts/Implants Used: 4 x 4 amniotic graft, Biovance
[2023-05-11 16:05] VITALS: BP 142/70; PULSE 82; RESP 18; TEMP 36.6; BMI 35.0
--- NOTE | 2023-05-11 17:47 | PCM.WC.PN ---
History of Present Illness Date of Service: 05/11/23 Chief Complaint: Nonhealing left lower extremity wound History of Wound: Patient is a 48-year-old female who follows to the wound care center today with complaint of left lower extremity nonhealing wound. She states on 03/16/2022 she fell through the deck and down 4 steps resulting in a laceration to the anterior aspect of the left lower extremity. She did present to [facility] and underwent radiographs which were negative. She underwent irrigation and closure of the laceration with 12 interrupted sutures superficially following absorbable deep closure. She was empirically started on Keflex and doxycycline also added. She followed up in the [facility] ED on 03/23/2023 due to the wound not improving with localized redness. Keflex was stopped and Augmentin was initiated. She did follow-up with her PCP office and underwent suture removal which that time some drainage was noted with some purulence and continued soreness about the wound. Augmentin was continued and she was referred to the wound care center for continued healing. Patient states she has finished the antibiotic and the redness and drainage have resolved. She denies N/V/F/chills. Denies further complaints. Progress of Wound: Chronic open laceration left leg Subjective Subjective Ms. Geovani Dyer is a 48-year-old female presenting to clinic today status post surgical skin graft prep with application of skin graft substitute to the left full-thickness ulceration. Date of surgery: 05/04/2023. Patient states her pain is improved to the left leg. She has kept her postoperative dressing clean dry and intact. She denies any strikethrough. She is taking pain medication as written. She denies any new onset of trauma. Denies constitutional symptoms. No other pedal complaints at this time. Objective Data Objective Data Vital Signs: Vital Signs Temp Pulse Resp BP O2 Del Method 97.9 F 82 18 142/70 H Room Air 05/11/23 16:05 05/11/23 16:05 05/11/23 16:05 05/11/23 16:05 05/11/23 16:05 Oxygen Delivery Method Room Air Weight: 98.43 kg Body Mass Index (BMI) 35.0 Physical Exam Narrative Neurovascular status unchanged. Full-thickness ulceration to the left anterior leg measuring 2.0 x 4.3 x 0.3 cm. Wound base is granular in nature with no sign of infection. No pain with calf compression. Excisional debridement down to and including subcutaneous tissue with number 5 mm dermal curette to the full-thickness ulceration to the anterior left leg. Predebridement measurements were 1.8 x 4.2 x 0.2 cm. Postdebridement measurements are 2.0 x 4.3 x 0.3 cm. The wound was dressed with black foam and snap and negative pressure wound VAC was applied without incident. Debridement Note Debridement Note Debridement Free Text: Excisional debridement down to and including subcutaneous tissue with number 5 mm dermal curette to the full-thickness ulceration to the anterior left leg. Predebridement measurements were 1.8 x 4.2 x 0.2 cm. Postdebridement measurements are 2.0 x 4.3 x 0.3 cm. The wound was dressed with black foam and snap and negative pressure wound VAC was applied without incident. Post-Debridement Measurements and Additional Note: Post-Debridement Measurements/Treatment WC - Nurse 1 - General Ulcer Assessment Start: 04/20/23 15:34 Freq: Status: Active Protocol: BUSETR Activity Type Activity Date Activity User E-sign Co-sign Detail Recorded Client Recorded Date Recorded By Document 04/20/23 15:35 DL [id number] 04/20/23 15:41 DL Document 04/27/23 15:27 DL [id number] 04/27/23 15:34 DL Document 05/11/23 16:05 KW Desktop 05/11/23 16:10 KW 04/20/23 04/27/23 05/11/23 15:35 15:27 16:05 - Today's Visit Information Type of service Follow-up Visit Follow-up Visit Follow-up Visit (Physician/BORING MACHINE SET UP OPERATOR JIG (Physician/BORING MACHINE SET UP OPERATOR JIG (Physician/BORING MACHINE SET UP OPERATOR JIG ) ) ) Arrival Mode Ambulatory Ambulatory Ambulatory Transfer Assistance None Transfer Board Patient Identification Verified (Name & Yes Yes ) Patient Requires Transmission-Based No No Precautions Height and Weight Body Mass Index (BMI) 35.0 35.0 35.0 BMI Classification Obese Obese Obese Vital Signs Temperature (97.8 F-99.1 F) 97.2 F L 97.5 F L 97.9 F Temperature Source Temporal Temporal Temporal Pulse Rate (60-100) 81 84 82 Pulse Location Monitor Monitor Monitor Respiratory Rate (12-18) 16 20 H 18 Respiratory rate source Observation Observation Ausculation Oxygen Delivery Method Room Air Room Air Blood Pressure (90/60-120/80) 153/88 H 148/85 H 142/70 H Blood Pressure Mean (mm Hg) 109 106 94 Source Monitor Monitor Monitor Position Sitting Semi-Fowlers Blood Pressure Location Left Arm Left Arm History Since Last Visit- (Skip if this is Patient's initial visit) Have you changed medications since your No No No last visit? Any new allergies or adverse reactions No No No Had a fall/change in ADL's that may No No No increase risk of falls Signs or symptoms of abuse and/or No No No neglect since last visit Have you been in the hospital since your No No No last visit? Has dressing in place as prescribed Yes Yes Yes Has compression in place as prescribed Yes Yes Has offloadiing in place as prescribed N/A N/A No Experienced any changes in pain level or No No No management Left Footwear Regular Shoe Regular Shoe Right Footwear Regular Shoe Regular Shoe Pain Scale: 0-10 Numeric Is Patient Pain Free? Yes Yes Yes WC - Nurse 1 - General Ulcer Measurement Start: 04/20/23 15:34 Freq: Status: Active Protocol: Activity Type Activity Date Activity User E-sign Co-sign Detail Recorded Client Recorded Date Recorded By Document 04/20/23 15:35 DL [id number] 04/20/23 15:41 DL Document 04/27/23 15:27 DL [id number] 04/27/23 15:34 DL Document 05/11/23 16:05 KW Desktop 05/11/23 16:10 KW 04/20/23 04/27/23 05/11/23 15:35 15:27 16:05 Wound Center Nurse 1 1-Left leg ulcer -Combined with other wound No -Current Size (cm) - Length 1.8 4.9 1.8 -Current Size (cm) - Width 5.3 2 4.2 -Current Size (cm) - Depth 0.5 0.3 0.4 -Total Square Cm 9.54 9.8 7.56 -Photo Taken No No -Epithelialization None Present -Tunneling No -Undermining/Tunneling No -Circular Undermining No -Exudate Amt Large Medium Small -Exudate Type Serosanguineous Serosanguineous Serosanguineous -Wound Margin Distinct, Distinct, Distinct, Outline Outline Outline Attached Attached Attached -Granulation Amt Medium (34-66%) Small (1-33%) Large (67-100%) -Granulation Quality Red Red Red -Slough/Fibrin Yes -Necrosis Amt Medium (34-66%) Large (67-100%) Small (1-33%) -Necrotic Tissue Type Adherent Slough Adherent Slough Adherent Slough -Structure Exposed N/A -Texture (Jenny-wound Skin Appearance) Assessed, Localized Edema Assessed Scarring ,Scarring -Moisture (Jenny-wound Skin Appearance) Assessed No Abnormality Assessed -Color (Jenny-wound Skin Appearance) Assessed, No Abnormality Assessed Erythema -Temperature (Jenny-wound Skin No Abnormality No Abnormality No Abnormality Appearance) (Pt Warm) (Pt Warm) (Pt Warm) -Tenderness on Palpation (Jenny-wound No No Skin Appearance) -Ulcer Cleansing Rinsed/ Soap and Water Soap and Water Irrigated with Saline -Foul Odor after Cleansing No No -Anesthetic Used 5% Lidocaine 5% Lidocaine 5% Lidocaine Gel Gel Gel Lower Limb Edema Present Yes Left Calf (cm) 39 39.5 Left Ankle (cm) 23.8 23.8 WC - Nurse 2 - General Ulcer CM Notes Start: 04/20/23 15:34 Freq: Status: Active Protocol: Activity Type Activity Date Activity User E-sign Co-sign Detail Recorded Client Recorded Date Recorded By Document 04/20/23 16:03 [id number] 04/20/23 16:11 Document 04/27/23 15:43 [id number] 04/27/23 15:47 Document 05/11/23 16:18 Desktop 05/11/23 16:19 04/20/23 04/27/23 05/11/23 16:03 15:43 16:18 Wound Center Nurse 2 1-Left leg ulcer -Time 16:04 15:44 16:18 -Correct Patient Yes Yes Yes -Correct Side, Site, Position Yes Yes Yes -Correct Procedure Yes Yes Yes -Procedure Performed Yes Yes Yes -Type of Procedure Debridement Debridement Debridement -Clinical Debridement Subcutaneous Subcutaneous Subcutaneous -Tissue Removed Subcutaneous Subcutaneous Subcutaneous -Post Debridement (cm) - Length 2.2 5.4 2.0 -Post Debridement (cm) - Width 5.9 2.3 4.3 -Post Debridement (cm) - Depth 0.6 0.5 0.3 -Total Square (Post) (cm) 12.98 12.42 8.60 -Area of Debridement (cm) - Length 2.2 5.4 2.0 -Area of Debridement (cm) - Width 5.9 2.3 4.3 -Total Square (Area) (cm) 12.98 12.42 8.60 -Tunneling No No No -Undermining/Tunneling No No No -Circular Undermining No No No -Wound/Ulcer Outcome Not Healed Not Healed Not Healed -Ulcer Cleansing Rinsed/ Rinsed/ Rinsed/ Irrigated with Irrigated with Irrigated with Saline Saline Saline -Foul Odor after Cleansing No No No -Bioengineered Tissue No No No -Bleeding Controlled with Silver Nitrate Pressure Pressure -Treatment Response Procedure Procedure Procedure Not Tolerated Well Tolerated Well Tolerated Well -Offloading No No No -Debridement - Subq, 1st 20sq cm Yes Yes Yes Pain Scale: 0-10 Numeric Is Patient Pain Free? Yes Yes Yes - Nurse 3 - General Ulcer D/C NN Start: 04/20/23 15:34 Freq: Status: Active Protocol: Activity Type Activity Date Activity User E-sign Co-sign Detail Recorded Client Recorded Date Recorded By Document 04/20/23 16:24 [facility] [id number] 04/20/23 16:26 [facility] Document 04/27/23 15:55 RB [id number] 04/27/23 15:56 RB Document 05/11/23 16:28 KW Desktop 05/11/23 16:39 04/20/23 04/27/23 05/11/23 16:24 15:55 16:28 Wound Care Center Nurse 3 1-Left leg ulcer -Ulcer Cleansing Rinsed/ Rinsed/ Irrigated with Irrigated with Saline Saline -Foul Odor after Cleansing No -Negative Pressure Wound Therapy Continue -Setting (mmHg) 125 -Other Dressing SALINE MOIST saline GAUZE PER KW moistened gauze SANFORIZING MACHINE OPERATOR -Primary Dressing Covered/Secured with Dry Gauze & Dry Gauze & Roll Gauze, Roll Gauze, Secured with Secured with Tape Tape -NPWT Application Charge NPWT </= 50 sq cm (disp) ($) Left -Tubular Bandage Single Layer Single Layer -Size of Tubigrip Used Size C Size D -Size D ($) 1 Treatment Response Procedure Procedure Tolerated Well Tolerated Well Pain Scale: 0-10 Numeric Is Patient Pain Free? Yes Yes Yes WC - Visit Discharge Discharge Condition Stable Stable Stable Ambulatory Status Ambulatory Ambulatory Ambulatory Transportation Private Auto Private Auto Private Auto Medication Reconcilliation completed & No No provided to patient/care provider Clinical Summary of Care Provided Yes Yes Assessment/Plan Assessment/Plan (1) Laceration without foreign body, left lower leg, initial encounter: CODE(S): S81.812A - Laceration without foreign body, left lower leg, initial encounter PLAN: Patient examined evaluated. All findings were discussed with the patient. All questions were answered to the patient's satisfaction. Excisional debridement down to and including subcutaneous tissue with number 5 mm dermal curette to the full-thickness ulceration to the anterior left leg. Predebridement measurements were 1.8 x 4.2 x 0.2 cm. Postdebridement measurements are 2.0 x 4.3 x 0.3 cm. The wound was dressed with black foam and snap and negative pressure wound VAC was applied without incident. Patient will follow-up Tuesday for VAC change followed by Tuesday follow-up with Dr. Montgomery. She is grateful for her care and left the office pleased with the visit. (2) Delayed healing of traumatic wound: CODE(S): T14.8XXD - Other injury of unspecified body region, subsequent encounter (3) Non-pressure chronic ulcer of left calf with fat layer exposed: CODE(S): L97.222 - Non-pressure chronic ulcer of left calf with fat layer exposed
[2023-05-13 11:23] VITALS: BP 148/79; PULSE 75; RESP 16; TEMP 36.1; BMI 35.0
== END 2023-05-14 23:59 | disposition home or self-care (01) ==
LOC: WC 11:00
PROVIDERS: PCP Internal Medicine; Referring Provider Pharmacist Pharmacist Clinician (PhC)/ Clinical Pharmacy Specialist; Visit Provider Student in an Organized Health Care Education/Training Program
DX: L97.222 Non-pressure chronic ulcer of left calf with fat layer exposed (principal); S81.812S Laceration without foreign body, left lower leg, sequela; Z79.891 Long term (current) use of opiate analgesic; M79.605 Pain in left leg; Z87.891 Personal history of nicotine dependence; W17.89XS Other fall from one level to another, sequela; Z79.899 Other long term (current) drug therapy
CPT/HCPCS: 11042; 97607

== ENCOUNTER 2023-06-01 15:00 | Outpatient (RCR) | payer OTHER, SELFPAY ==
[2023-05-15 00:39] VITALS: BP 148/79; PULSE 75; RESP 16; TEMP 36.1; BMI 35.0
[2023-05-18 14:11] VITALS: BP 138/88; PULSE 80; RESP 16; BMI 35.0
--- NOTE | 2023-05-18 15:18 | PN.PCM_ITS ---
History of Present Illness Date of Service: 05/18/23 Chief Complaint: Nonhealing left lower extremity wound History of Wound: Patient is a 48-year-old female who follows to the wound care center today with complaint of left lower extremity nonhealing wound. She states on 03/16/2022 she fell through the deck and down 4 steps resulting in a laceration to the anterior aspect of the left lower extremity. She did present to [facility] and underwent radiographs which were negative. She underwent irrigation and closure of the laceration with 12 interrupted sutures superficially following absorbable deep closure. She was empirically started on Keflex and doxycycline also added. She followed up in the [facility] ED on 03/23/2023 due to the wound not improving with localized redness. Keflex was stopped and Augmentin was initiated. She did follow-up with her PCP office and underwent suture removal which that time some drainage was noted with some purulence and continued soreness about the wound. Augmentin was continued and she was referred to the wound care center for continued healing. Patient states she has finished the antibiotic and the redness and drainage have resolved. She denies N/V/F/chills. Denies further complaints. Subjective Subjective Mrs.Millin Dyer is a 48-year-old female presenting for follow-up with wound care center for laceration to left leg. Patient is status post excisional debri jackelin with application of skin graft. Patient has been getting her negative pressure VAC changed twice now. She states that her wound is looking a lot more beefy granular. She denies any drainage. She denies any redness or malodor. She denies any new onset of trauma. She denies constitutional symptoms. No other pedal complaints at this time. Objective Data Objective Data Vital Signs: Vital Signs Temp Pulse Resp BP O2 Del Method 96.9 F L 80 16 138/88 H Room Air 05/15/23 00:39 05/18/23 14:11 05/18/23 14:11 05/18/23 14:11 05/18/23 14:11 Oxygen Delivery Method Room Air Weight: 98.43 kg Body Mass Index (BMI) 35.0 Physical Exam Narrative Neurovascular status unchanged. Full-thickness ulceration to the left anterior leg measuring 1.6 x 4.0 x 0.2 cm. Wound base is granular in nature with no sign of infection. No pain with calf compression. Excisional debridement down to and including subcutaneous tissue with number 5 mm dermal curette to the full-thickness ulceration to the anterior left leg. Predebridement measurements were 1.4 x 3.8 x 0.1 cm. Postdebridement measurements are 1.6 x 4.0 x 0.2 cm. The wound was dressed with black foam and snap and negative pressure wound VAC was applied without incident. Debridement Note Debridement Note Debridement Free Text: Excisional debridement down to and including subcutaneous tissue with number 5 mm dermal curette to the full-thickness ulceration to the anterior left leg. Predebridement measurements were 1.4 x 3.8 x 0.1 cm. Postdebridement measurements are 1.6 x 4.0 x 0.2 cm. The wound was dressed with black foam and snap and negative pressure wound VAC was applied without incident. 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 ) Arrival Mode Ambulatory Transfer Assistance None Patient Identification Verified (Name & Yes ) Patient Requires Transmission-Based No Precautions Height and Weight Body Mass Index (BMI) 35.0 BMI Classification Obese Vital Signs Pulse Rate (60-100) 80 Pulse Location Monitor Respiratory Rate (12-18) 16 Respiratory rate source Observation Oxygen Delivery Method Room Air Blood Pressure (90/60-120/80) 138/88 H Blood Pressure Mean (mm Hg) 104 Source Monitor Position Sitting Blood Pressure Location Left Arm History Since Last Visit- (Skip if this is Patient's initial visit) Have you changed medications since your No last visit? Any new allergies or adverse reactions No Had a fall/change in ADL's that may No increase risk of falls Signs or symptoms of abuse and/or No neglect since last visit Have you been in the hospital since your No last visit? Has dressing in place as prescribed Yes Has compression in place as prescribed N/A Has offloadiing in place as prescribed Yes Experienced any changes in pain level or No management Left Footwear Regular Shoe Right Footwear Regular Shoe Pain Scale: 0-10 Numeric Is Patient Pain Free? Yes - Nurse 1 - General Ulcer Measurement Start: 05/18/23 14:10 Freq: Status: Active Protocol: Activity Type Activity Date Activity User E-sign Co-sign Detail Recorded Client Recorded Date Recorded By Document 05/18/23 14:11 KW Desktop 05/18/23 14:21 KW 05/18/23 14:11 Wound Center Nurse 1 1-Left leg ulcer -Combined with other wound No -Current Size (cm) - Length 1.4 -Current Size (cm) - Width 2.9 -Current Size (cm) - Depth 0.2 -Total Square Cm 4.06 -Photo Taken No -Epithelialization Small 1-33% -Tunneling No -Undermining/Tunneling No -Circular Undermining No -Exudate Amt Medium -Exudate Type Serosanguineous -Wound Margin Flat & Intact -Granulation Amt Medium (34-66%) -Granulation Quality Red -Slough/Fibrin Yes -Necrosis Amt Medium (34-66%) -Necrotic Tissue Type Adherent Slough -Texture (Jenny-wound Skin Appearance) Assessed, Scarring -Moisture (Jenny-wound Skin Appearance) Assessed -Color (Jenny-wound Skin Appearance) Assessed -Temperature (Jenny-wound Skin No Abnormality Appearance) (Pt Warm) -Tenderness on Palpation (Jenny-wound No Skin Appearance) -Ulcer Cleansing Soap and Water -Foul Odor after Cleansing No -Anesthetic Used 4% Lidocaine Solution - Nurse 2 - General Ulcer CM Notes Start: 05/18/23 14:10 Freq: Status: Active Protocol: Activity Type Activity Date Activity User E-sign Co-sign Detail Recorded Client Recorded Date Recorded By Document 05/18/23 14:32 Laptop 05/18/23 14:35 05/18/23 14:32 Wound Center Nurse 2 -Time 14:33 -Correct Patient Yes -Correct Side, Site, Position Yes -Correct Procedure Yes -Procedure Performed Yes -Type of Procedure Debridement -Clinical Debridement Subcutaneous -Tissue Removed Subcutaneous -Post Debridement (cm) - Length 1.6 -Post Debridement (cm) - Width 4.0 -Post Debridement (cm) - Depth 0.2 -Total Square (Post) (cm) 6.40 -Area of Debridement (cm) - Length 1.6 -Area of Debridement (cm) - Width 4.0 -Total Square (Area) (cm) 6.40 -Tunneling No -Undermining/Tunneling No -Circular Undermining No -Wound/Ulcer Outcome Not Healed -Ulcer Cleansing Rinsed/ Irrigated with Saline -Foul Odor after Cleansing No -Bioengineered Tissue No -Bleeding Controlled with Pressure -Treatment Response Procedure Tolerated Well -Offloading No -Debridement - Subq, 1st 20sq cm Yes Pain Scale: 0-10 Numeric Is Patient Pain Free? Yes WC - Nurse 3 - General Ulcer D/C NN Start: 05/18/23 14:10 Freq: Status: Active Protocol: Activity Type Activity Date Activity User E-sign Co-sign Detail Recorded Client Recorded Date Recorded By Document 05/18/23 15:03 KW Desktop 05/18/23 15:04 KW 05/18/23 15:03 Wound Care Center Nurse 3 1-Left leg ulcer -Ulcer Cleansing Rinsed/ Irrigated with Saline -Negative Pressure Wound Therapy Continue -Setting (mmHg) 125 -Negative Pressure is Continuous -Regranex (If Applicable) Continue -NPWT Application Charge NPWT </= 50 sq cm ($) Pain Scale: 0-10 Numeric Is Patient Pain Free? Yes Assessment/Plan Assessment/Plan (1) Non-pressure chronic ulcer of left calf with fat layer exposed: CODE(S): L97.222 - Non-pressure chronic ulcer of left calf with fat layer exposed PLAN: Patient was examined evaluated. All findings were discussed with the patient. All questions were answered to the patient's satisfaction Excisional debridement down to and including subcutaneous tissue with number 5 mm dermal curette to the full-thickness ulceration to the anterior left leg. Predebridement measurements were 1.4 x 3.8 x 0.1 cm. Postdebridement measurements are 1.6 x 4.0 x 0.2 cm. The wound was dressed with black foam and snap and negative pressure wound VAC was applied without incident. Patient will follow-up on Tuesday for nursing visit for VAC dressing change. We will begin authorization for epi cord mesh to be applied to the full- thickness ulceration since the patient has failed greater than 4 weeks of conservative treatment. Follow-up 1 week. (2) Laceration without foreign body, left lower leg, initial encounter: CODE(S): S81.812A - Laceration without foreign body, left lower leg, initial encounter (3) Delayed healing of traumatic wound: CODE(S): T14.8XXD - Other injury of unspecified body region, subsequent encounter
[2023-05-20 14:40] VITALS: BP 140/79; PULSE 78; RESP 18; TEMP 36.2; BMI 35.0
[2023-05-25 14:37] VITALS: BP 150/84; PULSE 77; RESP 18; TEMP 36.9; BMI 35.0
--- NOTE | 2023-05-25 17:10 | PN.PCM_ITS ---
History of Present Illness Date of Service: 05/25/23 Chief Complaint: Nonhealing left lower extremity wound History of Wound: Patient is a 48-year-old female who follows to the wound care center today with complaint of left lower extremity nonhealing wound. She states on 03/16/2022 she fell through the deck and down 4 steps resulting in a laceration to the anterior aspect of the left lower extremity. She did present to [facility] and underwent radiographs which were negative. She underwent irrigation and closure of the laceration with 12 interrupted sutures superficially following absorbable deep closure. She was empirically started on Keflex and doxycycline also added. She followed up in the [facility] ED on 03/23/2023 due to the wound not improving with localized redness. Keflex was stopped and Augmentin was initiated. She did follow-up with her PCP office and underwent suture removal which that time some drainage was noted with some purulence and continued soreness about the wound. Augmentin was continued and she was referred to the wound care center for continued healing. Patient states she has finished the antibiotic and the redness and drainage have resolved. She denies N/V/F/chills. Denies further complaints. Subjective Subjective Mrs.Millin Dyer is a 48-year-old female presenting for follow-up with wound care center for laceration to left leg. Patient is status post excisional debri jackelin with application of skin graft. Patient has been getting her negative pressure VAC changed twice now. She states that her wound is looking a lot more beefy granular. She denies any drainage. She denies any redness or malodor. She denies any new onset of trauma. She denies constitutional symptoms. No other pedal complaints at this time. Objective Data Objective Data Vital Signs: Vital Signs Temp Pulse Resp BP O2 Del Method 98.5 F 77 18 150/84 H Room Air 05/25/23 14:37 05/25/23 14:37 05/25/23 14:37 05/25/23 14:37 05/25/23 14:37 Oxygen Delivery Method Room Air Weight: 98.43 kg Body Mass Index (BMI) 35.0 Physical Exam Narrative Neurovascular status unchanged. Full-thickness ulceration to the left anterior leg measuring 1.6 x 3.5 x 0.2 cm. Wound base is granular in nature with no sign of infection. No pain with calf compression. Excisional debridement down to and including subcutaneous tissue with number 5 mm dermal curette to the full-thickness ulceration to the anterior left leg. Predebridement measurements were 1.4 x 3.4 x 0.1 cm. Postdebridement measurements are 1.6 x 3.4 x 0.2 cm. Ulceration was dressed with Solange, Betadine paint and border foam. Tubigrip donned. Debridement Note Debridement Note Debridement Free Text: Excisional debridement down to and including subcutaneous tissue with number 5 mm dermal curette to the full-thickness ulceration to the anterior left leg. Predebridement measurements were 1.4 x 3.4 x 0.1 cm. Postdebridement measurements are 1.6 x 3.4 x 0.2 cm. Ulceration was dressed with Solange, Betadine paint and border foam. Tubigrip donned. Post-Debridement Measurements and Additional Note: Post-Debridement Measurements/Treatment WC - Nurse 1 - General Ulcer Assessment Start: 05/18/23 14:10 Freq: Status: Active Protocol: BUSTER Activity Type Activity Date Activity User E-sign Co-sign Detail Recorded Client Recorded Date Recorded By Document 05/18/23 14:11 KW Desktop 05/18/23 14:21 KW Document 05/20/23 14:40 PL [id number] 05/20/23 14:41 PL Document 05/25/23 14:37 KW Desktop 05/25/23 14:47 KW 05/18/23 05/20/23 05/25/23 14:11 14:40 14:37 - Today's Visit Information Type of service Follow-up Visit Nurse-only Follow-up Visit (Physician/FANCY PACKER Visit (Physician/FANCY PACKER ) ) Arrival Mode Ambulatory Ambulatory Ambulatory Transfer Assistance None Patient Identification Verified (Name & Yes Yes Yes ) Patient Requires Transmission-Based No No Precautions Safety Precautions NA Height and Weight Body Mass Index (BMI) 35.0 35.0 35.0 BMI Classification Obese Obese Obese Vital Signs Temperature (97.8 F-99.1 F) 97.2 F L 98.5 F Temperature Source Temporal Temporal Pulse Rate (60-100) 80 78 77 Pulse Location Monitor Monitor Respiratory Rate (12-18) 16 18 18 Respiratory rate source Observation Observation Oxygen Delivery Method Room Air Room Air Blood Pressure (90/60-120/80) 138/88 H 140/79 H 150/84 H Blood Pressure Mean (mm Hg) 104 99 106 Source Monitor Monitor Position Sitting Semi-Fowlers Blood Pressure Location Left Arm Left Arm History Since Last Visit- (Skip if this is Patient's initial visit) Have you changed medications since your No No No last visit? Any new allergies or adverse reactions No No No Had a fall/change in ADL's that may No No No increase risk of falls Signs or symptoms of abuse and/or No No No neglect since last visit Have you been in the hospital since your No No No last visit? Has dressing in place as prescribed Yes Yes No Has compression in place as prescribed N/A Yes No Has offloadiing in place as prescribed Yes N/A No Experienced any changes in pain level or No No No management Left Footwear Regular Shoe Regular Shoe Right Footwear Regular Shoe Regular Shoe Pain Scale: 0-10 Numeric Is Patient Pain Free? Yes Yes Yes WC - Nurse 1 - General Ulcer Measurement Start: 05/18/23 14:10 Freq: Status: Active Protocol: Activity Type Activity Date Activity User E-sign Co-sign Detail Recorded Client Recorded Date Recorded By Document 05/18/23 14:11 KW Desktop 05/18/23 14:21 KW Document 05/25/23 14:37 KW Desktop 05/25/23 14:47 KW 05/18/23 05/25/23 14:11 14:37 Wound Center Nurse 1 1-Left leg ulcer -Combined with other wound No -Current Size (cm) - Length 1.4 1.5 -Current Size (cm) - Width 2.9 3.5 -Current Size (cm) - Depth 0.2 0.2 -Total Square Cm 4.06 5.25 -Photo Taken No -Epithelialization Small 1-33% -Tunneling No -Undermining/Tunneling No -Circular Undermining No -Exudate Amt Medium Small -Exudate Type Serosanguineous Serosanguineous -Wound Margin Flat & Intact Distinct, Outline Attached -Granulation Amt Medium (34-66%) Large (67-100%) -Granulation Quality Red Red -Slough/Fibrin Yes -Necrosis Amt Medium (34-66%) Small (1-33%) -Necrotic Tissue Type Adherent Slough Adherent Slough -Texture (Jenny-wound Skin Appearance) Assessed, Assessed Scarring -Moisture (Jenny-wound Skin Appearance) Assessed Assessed -Color (Jenny-wound Skin Appearance) Assessed Assessed -Temperature (Jenny-wound Skin No Abnormality No Abnormality Appearance) (Pt Warm) (Pt Warm) -Tenderness on Palpation (Jenny-wound No Skin Appearance) -Ulcer Cleansing Soap and Water Rinsed/ Irrigated with Saline -Foul Odor after Cleansing No No -Anesthetic Used 4% Lidocaine 5% Lidocaine Solution Gel - Nurse 2 - General Ulcer CM Notes Start: 05/18/23 14:10 Freq: Status: Active Protocol: Activity Type Activity Date Activity User E-sign Co-sign Detail Recorded Client Recorded Date Recorded By Document 05/18/23 14:32 Laptop 05/18/23 14:35 Document 05/25/23 15:19 Laptop 05/25/23 15:21 05/18/23 05/25/23 14:32 15:19 Wound Center Nurse 2 1-Left leg ulcer -Time 14:33 15:19 -Correct Patient Yes Yes -Correct Side, Site, Position Yes Yes -Correct Procedure Yes Yes -Procedure Performed Yes Yes -Type of Procedure Debridement Debridement -Clinical Debridement Subcutaneous Subcutaneous -Tissue Removed Subcutaneous Subcutaneous -Post Debridement (cm) - Length 1.6 1.6 -Post Debridement (cm) - Width 4.0 3.5 -Post Debridement (cm) - Depth 0.2 0.2 -Total Square (Post) (cm) 6.40 5.60 -Area of Debridement (cm) - Length 1.6 1.6 -Area of Debridement (cm) - Width 4.0 3.5 -Total Square (Area) (cm) 6.40 5.60 -Tunneling No No -Undermining/Tunneling No No -Circular Undermining No No -Wound/Ulcer Outcome Not Healed Not Healed -Ulcer Cleansing Rinsed/ Rinsed/ Irrigated with Irrigated with Saline Saline -Foul Odor after Cleansing No No -Bioengineered Tissue No No -Bleeding Controlled with Pressure Pressure -Treatment Response Procedure Procedure Tolerated Well Tolerated Well -Offloading No No -Debridement - Subq, 1st 20sq cm Yes Yes Pain Scale: 0-10 Numeric Is Patient Pain Free? Yes Yes JACE - Nurse 3 - General Ulcer D/C NN Start: 05/18/23 14:10 Freq: Status: Active Protocol: Activity Type Activity Date Activity User E-sign Co-sign Detail Recorded Client Recorded Date Recorded By Document 05/18/23 15:03 KW Desktop 05/18/23 15:04 KW Document 05/20/23 14:40 PL [id number] 05/20/23 14:41 PL Document 05/25/23 15:43 KW Desktop 05/25/23 15:44 KW 05/18/23 05/20/23 05/25/23 15:03 14:40 15:43 Wound Care Center Nurse 3 1-Left leg ulcer -Ulcer Cleansing Rinsed/ Soap and Water Rinsed/ Irrigated with Irrigated with Saline Saline -Foul Odor after Cleansing No -Negative Pressure Wound Therapy Continue Continue -Setting (mmHg) 125 125 -Negative Pressure is Continuous Continuous -Regranex (If Applicable) Continue -Primary Dressing Applied Promogran Solange Matter -Primary Dressing Covered/Secured with Dry Gauze & Roll Gauze, Secured with Tape -NPWT Application Charge NPWT </= 50 sq NPWT </= 50 sq cm ($) cm (disp) ($) -Promogran Solange Matter 1 LT -Tubular Bandage Single Layer -Size of Tubigrip Used Size E -Size E ($) 1 Vital Signs Temperature (97.8 F-99.1 F) 97.2 F L Temperature Source Temporal Pulse Rate (60-100) 78 Respiratory Rate (12-18) 18 Blood Pressure (90/60-120/80) 140/79 H Blood Pressure Mean (mm Hg) 99 Pain Scale: 0-10 Numeric Is Patient Pain Free? Yes Yes Yes WC - Visit Discharge Discharge Condition Stable Stable Ambulatory Status Ambulatory Ambulatory Transportation Private Auto Private Auto Medication Reconcilliation completed & No provided to patient/care provider Clinical Summary of Care Provided Yes Assessment/Plan Assessment/Plan (1) Non-pressure chronic ulcer of left calf with fat layer exposed: CODE(S): L97.222 - Non-pressure chronic ulcer of left calf with fat layer exposed PLAN: Patient was examined evaluated. All findings were discussed with the patient. All questions were answered to the patient's satisfaction. Excisional debridement down to and including subcutaneous tissue with number 5 mm dermal curette to the full-thickness ulceration to the anterior left leg. Predebridement measurements were 1.4 x 3.4 x 0.1 cm. Postdebridement measurements are 1.6 x 3.4 x 0.2 cm. Ulceration was dressed with Solange, Betadine paint and border foam. Tubigrip donned. Follow-up 1 week (2) Delayed healing of traumatic wound: CODE(S): T14.8XXD - Other injury of unspecified body region, subsequent encounter (3) Laceration without foreign body, left lower leg, initial encounter: CODE(S): S81.812A - Laceration without foreign body, left lower leg, initial encounter
[2023-06-01 15:12] VITALS: BP 146/86; PULSE 86; RESP 18; TEMP 36.4; BMI 35.0
--- NOTE | 2023-06-01 16:47 | PN.PCM_ITS ---
History of Present Illness Date of Service: 06/01/23 Chief Complaint: Nonhealing left lower extremity wound History of Wound: Patient is a 48-year-old female who follows to the wound care center today with complaint of left lower extremity nonhealing wound. She states on 03/16/2022 she fell through the deck and down 4 steps resulting in a laceration to the anterior aspect of the left lower extremity. She did present to [facility] and underwent radiographs which were negative. She underwent irrigation and closure of the laceration with 12 interrupted sutures superficially following absorbable deep closure. She was empirically started on Keflex and doxycycline also added. She followed up in the [facility] ED on 03/23/2023 due to the wound not improving with localized redness. Keflex was stopped and Augmentin was initiated. She did follow-up with her PCP office and underwent suture removal which that time some drainage was noted with some purulence and continued soreness about the wound. Augmentin was continued and she was referred to the wound care center for continued healing. Patient states she has finished the antibiotic and the redness and drainage have resolved. She denies N/V/F/chills. Denies further complaints. Subjective Subjective Mrs. Geovani Dyer is a 48-year-old female presenting for follow-up with wound care center for laceration to left leg. Patient is status post excisional debr idement with application of skin graft. She states that her wound is looking a lot more beefy granular. She continues to change her dressing, Solange and border foam daily. She denies any drainage. She denies any redness or malodor. She denies any new onset of trauma. She denies constitutional symptoms. No other pedal complaints at this time. Objective Data Objective Data Vital Signs: Vital Signs Temp Pulse Resp BP O2 Del Method 97.5 F L 86 18 146/86 H Room Air 06/01/23 15:12 06/01/23 15:12 06/01/23 15:12 06/01/23 15:12 06/01/23 15:12 Oxygen Delivery Method Room Air Weight: 98.43 kg Body Mass Index (BMI) 35.0 Physical Exam Narrative Neurovascular status unchanged. Full-thickness ulceration to the left anterior leg measuring 1.5 x 2.9 x 0.1 cm. Wound base is granular in nature with no sign of infection. No pain with calf compression. Excisional debridement down to and including subcutaneous tissue with number 5 mm dermal curette to the full-thickness ulceration to the anterior left leg. Predebridement measurements were 1.3 x 3.1 x 0.1 cm. Postdebridement measurements are 1.5 x 2.9 x 0.1 cm. Ulceration was dressed with Solange, Betadine paint and border foam. Tubigrip donned. Debridement Note Debridement Note Debridement Free Text: Excisional debridement down to and including subcutaneous tissue with number 5 mm dermal curette to the full-thickness ulceration to the anterior left leg. Predebridement measurements were 1.3 x 3.1 x 0.1 cm. Postdebridement measurements are 1.5 x 2.9 x 0.1 cm. Ulceration was dressed with Solange, Betadine paint and border foam. Tubigrip donned. Post-Debridement Measurements and Additional Note: Post-Debridement Measurements/Treatment WC - Nurse 1 - General Ulcer Assessment Start: 05/18/23 14:10 Freq: Status: Active Protocol: BUSTER Activity Type Activity Date Activity User E-sign Co-sign Detail Recorded Client Recorded Date Recorded By Document 05/18/23 14:11 KW Desktop 05/18/23 14:21 KW Document 05/20/23 14:40 PL [id number] 05/20/23 14:41 PL Document 05/25/23 14:37 KW Desktop 05/25/23 14:47 KW Document 06/01/23 15:12 KW Desktop 06/01/23 15:14 KW 05/18/23 05/20/23 05/25/23 14:11 14:40 14:37 - Today's Visit Information Type of service Follow-up Visit Nurse-only Follow-up Visit (Physician/FLOORWALKER Visit (Physician/FLOORWALKER ) ) Arrival Mode Ambulatory Ambulatory Ambulatory Transfer Assistance None Patient Identification Verified (Name & Yes Yes Yes ) Patient Requires Transmission-Based No No Precautions Safety Precautions NA Height and Weight Body Mass Index (BMI) 35.0 35.0 35.0 BMI Classification Obese Obese Obese Vital Signs Temperature (97.8 F-99.1 F) 97.2 F L 98.5 F Temperature Source Temporal Temporal Pulse Rate (60-100) 80 78 77 Pulse Location Monitor Monitor Respiratory Rate (12-18) 16 18 18 Respiratory rate source Observation Observation Oxygen Delivery Method Room Air Room Air Blood Pressure (90/60-120/80) 138/88 H 140/79 H 150/84 H Blood Pressure Mean (mm Hg) 104 99 106 Source Monitor Monitor Position Sitting Semi-Fowlers Blood Pressure Location Left Arm Left Arm History Since Last Visit- (Skip if this is Patient's initial visit) Have you changed medications since your No No No last visit? Any new allergies or adverse reactions No No No Had a fall/change in ADL's that may No No No increase risk of falls Signs or symptoms of abuse and/or No No No neglect since last visit Have you been in the hospital since your No No No last visit? Has dressing in place as prescribed Yes Yes No Has compression in place as prescribed N/A Yes No Has offloadiing in place as prescribed Yes N/A No Experienced any changes in pain level or No No No management Left Footwear Regular Shoe Regular Shoe Right Footwear Regular Shoe Regular Shoe Pain Scale: 0-10 Numeric Is Patient Pain Free? Yes Yes Yes 06/01/23 15:12 WC - Today's Visit Information Type of service Follow-up Visit (Physician/FLOORWALKER ) Arrival Mode Ambulatory Transfer Assistance Patient Identification Verified (Name & Yes ) Patient Requires Transmission-Based Precautions Safety Precautions Height and Weight Body Mass Index (BMI) 35.0 BMI Classification Obese Vital Signs Temperature (97.8 F-99.1 F) 97.5 F L Temperature Source Temporal Pulse Rate (60-100) 86 Pulse Location Monitor Respiratory Rate (12-18) 18 Respiratory rate source Observation Oxygen Delivery Method Room Air Blood Pressure (90/60-120/80) 146/86 H Blood Pressure Mean (mm Hg) 106 Source Monitor Position Semi-Fowlers Blood Pressure Location Left Arm History Since Last Visit- (Skip if this is Patient's initial visit) Have you changed medications since your No last visit? Any new allergies or adverse reactions No Had a fall/change in ADL's that may No increase risk of falls Signs or symptoms of abuse and/or No neglect since last visit Have you been in the hospital since your No last visit? Has dressing in place as prescribed Yes Has compression in place as prescribed No Has offloadiing in place as prescribed No Experienced any changes in pain level or No management Left Footwear Regular Shoe Right Footwear Regular Shoe Pain Scale: 0-10 Numeric Is Patient Pain Free? Yes WC - Nurse 1 - General Ulcer Measurement Start: 05/18/23 14:10 Freq: Status: Active Protocol: Activity Type Activity Date Activity User E-sign Co-sign Detail Recorded Client Recorded Date Recorded By Document 05/18/23 14:11 KW Desktop 05/18/23 14:21 KW Document 05/25/23 14:37 KW Desktop 05/25/23 14:47 KW Document 06/01/23 15:12 KW Desktop 06/01/23 15:14 KW 05/18/23 05/25/23 06/01/23 14:11 14:37 15:12 Wound Center Nurse 1 1-Left leg ulcer -Combined with other wound No -Current Size (cm) - Length 1.4 1.5 1.0 -Current Size (cm) - Width 2.9 3.5 2.4 -Current Size (cm) - Depth 0.2 0.2 0.1 -Total Square Cm 4.06 5.25 2.40 -Photo Taken No -Epithelialization Small 1-33% -Tunneling No -Undermining/Tunneling No -Circular Undermining No -Exudate Amt Medium Small Small -Exudate Type Serosanguineous Serosanguineous Serosanguineous -Wound Margin Flat & Intact Distinct, Distinct, Outline Outline Attached Attached -Granulation Amt Medium (34-66%) Large (67-100%) Large (67-100%) -Granulation Quality Red Red Red -Slough/Fibrin Yes -Necrosis Amt Medium (34-66%) Small (1-33%) -Necrotic Tissue Type Adherent Slough Adherent Slough -Texture (Jenny-wound Skin Appearance) Assessed, Assessed Assessed Scarring -Moisture (Jenny-wound Skin Appearance) Assessed Assessed Assessed -Color (Jenny-wound Skin Appearance) Assessed Assessed Assessed -Temperature (Jenny-wound Skin No Abnormality No Abnormality No Abnormality Appearance) (Pt Warm) (Pt Warm) (Pt Warm) -Tenderness on Palpation (Jenny-wound No Skin Appearance) -Ulcer Cleansing Soap and Water Rinsed/ Rinsed/ Irrigated with Irrigated with Saline Saline -Foul Odor after Cleansing No No -Anesthetic Used 4% Lidocaine 5% Lidocaine 5% Lidocaine Solution Gel Gel Left Calf (cm) 39.5 Left Ankle (cm) 23.5 WC - Nurse 2 - General Ulcer CM Notes Start: 05/18/23 14:10 Freq: Status: Active Protocol: Activity Type Activity Date Activity User E-sign Co-sign Detail Recorded Client Recorded Date Recorded By Document 05/18/23 14:32 JF Laptop 05/18/23 14:35 Document 05/25/23 15:19 JF Laptop 05/25/23 15:21 Document 06/01/23 15:55 Laptop 06/01/23 15:57 05/18/23 05/25/23 06/01/23 14:32 15:19 15:55 Wound Center Nurse 2 1-Left leg ulcer -Time 14:33 15:19 15:55 -Correct Patient Yes Yes Yes -Correct Side, Site, Position Yes Yes Yes -Correct Procedure Yes Yes Yes -Procedure Performed Yes Yes Yes -Type of Procedure Debridement Debridement Debridement -Clinical Debridement Subcutaneous Subcutaneous Subcutaneous -Tissue Removed Subcutaneous Subcutaneous Subcutaneous -Post Debridement (cm) - Length 1.6 1.6 1.5 -Post Debridement (cm) - Width 4.0 3.5 2.9 -Post Debridement (cm) - Depth 0.2 0.2 0.1 -Total Square (Post) (cm) 6.40 5.60 4.35 -Area of Debridement (cm) - Length 1.6 1.6 1.5 -Area of Debridement (cm) - Width 4.0 3.5 2.9 -Total Square (Area) (cm) 6.40 5.60 4.35 -Tunneling No No No -Undermining/Tunneling No No No -Circular Undermining No No No -Wound/Ulcer Outcome Not Healed Not Healed Not Healed -Ulcer Cleansing Rinsed/ Rinsed/ Rinsed/ Irrigated with Irrigated with Irrigated with Saline Saline Saline -Foul Odor after Cleansing No No No -Bioengineered Tissue No No No -Bleeding Controlled with Pressure Pressure Pressure -Treatment Response Procedure Procedure Procedure Tolerated Well Tolerated Well Tolerated Well -Offloading No No No -Debridement - Subq, 1st 20sq cm Yes Yes Yes Pain Scale: 0-10 Numeric Is Patient Pain Free? Yes Yes Yes JACE - Nurse 3 - General Ulcer D/C NN Start: 05/18/23 14:10 Freq: Status: Active Protocol: Activity Type Activity Date Activity User E-sign Co-sign Detail Recorded Client Recorded Date Recorded By Document 05/18/23 15:03 KW Desktop 05/18/23 15:04 KW Document 05/20/23 14:40 PL [id number] 05/20/23 14:41 PL Document 05/25/23 15:43 KW Desktop 05/25/23 15:44 KW Document 06/01/23 16:02 KW Desktop 06/01/23 16:03 KW 05/18/23 05/20/23 05/25/23 15:03 14:40 15:43 Wound Care Center Nurse 3 1-Left leg ulcer -Ulcer Cleansing Rinsed/ Soap and Water Rinsed/ Irrigated with Irrigated with Saline Saline -Foul Odor after Cleansing No -Negative Pressure Wound Therapy Continue Continue -Setting (mmHg) 125 125 -Negative Pressure is Continuous Continuous -Regranex (If Applicable) Continue -Primary Dressing Applied Promogran Solange Matter -Primary Dressing Covered/Secured with Dry Gauze & Roll Gauze, Secured with Tape -NPWT Application Charge NPWT </= 50 sq NPWT </= 50 sq cm ($) cm (disp) ($) -Mepilex Border -Promogran Solange Matter 1 LT -Tubular Bandage Single Layer -Size of Tubigrip Used Size E -Size E ($) 1 Vital Signs Temperature (97.8 F-99.1 F) 97.2 F L Temperature Source Temporal Pulse Rate (60-100) 78 Respiratory Rate (12-18) 18 Blood Pressure (90/60-120/80) 140/79 H Blood Pressure Mean (mm Hg) 99 Pain Scale: 0-10 Numeric Is Patient Pain Free? Yes Yes Yes WC - Visit Discharge Discharge Condition Stable Stable Ambulatory Status Ambulatory Ambulatory Transportation Private Auto Private Auto Medication Reconcilliation completed & No provided to patient/care provider Clinical Summary of Care Provided Yes 06/01/23 16:02 Wound Care Center Nurse 3 1-Left leg ulcer -Ulcer Cleansing Rinsed/ Irrigated with Saline -Foul Odor after Cleansing -Negative Pressure Wound Therapy -Setting (mmHg) -Negative Pressure is -Regranex (If Applicable) -Primary Dressing Applied Mepilex Border, Promogran Solange Matter -Primary Dressing Covered/Secured with -NPWT Application Charge -Mepilex Border 1 -Promogran Solange Matter 1 LT -Tubular Bandage Single Layer -Size of Tubigrip Used Size E -Size E ($) 1 Vital Signs Temperature (97.8 F-99.1 F) Temperature Source Pulse Rate (60-100) Respiratory Rate (12-18) Blood Pressure (90/60-120/80) Blood Pressure Mean (mm Hg) Pain Scale: 0-10 Numeric Is Patient Pain Free? Yes WC - Visit Discharge Discharge Condition Stable Ambulatory Status Ambulatory Transportation Private Auto Medication Reconcilliation completed & No provided to patient/care provider Clinical Summary of Care Provided Yes Assessment/Plan Assessment/Plan (1) Non-pressure chronic ulcer of left calf with fat layer exposed: CODE(S): L97.222 - Non-pressure chronic ulcer of left calf with fat layer exposed PLAN: Patient was examined evaluated. All findings were discussed with the patient. All questions were answered to patient satisfaction. Excisional debridement down to and including subcutaneous tissue with number 5 mm dermal curette to the full-thickness ulceration to the anterior left leg. Predebridement measurements were 1.3 x 3.1 x 0.1 cm. Postdebridement measurements are 1.5 x 2.9 x 0.1 cm. Ulceration was dressed with Solange, Betadine paint and border foam. Tubigrip donned. Follow-up in 2 weeks. (2) Delayed healing of traumatic wound: CODE(S): T14.8XXD - Other injury of unspecified body region, subsequent encounter
== END 2023-06-14 23:59 | disposition home or self-care (01) ==
LOC: WC 15:00
PROVIDERS: PCP Internal Medicine; Referring Provider Pharmacist Pharmacist Clinician (PhC)/ Clinical Pharmacy Specialist; Visit Provider Student in an Organized Health Care Education/Training Program
DX: L97.222 Non-pressure chronic ulcer of left calf with fat layer exposed (principal); S81.812S Laceration without foreign body, left lower leg, sequela; W17.89XS Other fall from one level to another, sequela
CPT/HCPCS: 11042; 97605; 97607

== ENCOUNTER 2023-06-29 13:45 | Outpatient (RCR) | payer OTHER, SELFPAY ==
[2023-06-15 00:21] VITALS: BP 146/86; PULSE 86; RESP 18; TEMP 36.4; BMI 35.0
[2023-06-15 10:40] VITALS: BP 130/79; PULSE 72; RESP 18; TEMP 36.5; BMI 35.0
--- NOTE | 2023-06-15 10:53 | PCM.WC.PN ---
History of Present Illness Date of Service: 06/15/23 Chief Complaint: Nonhealing left lower extremity wound History of Wound: Patient is a 48-year-old female who follows to the wound care center today with complaint of left lower extremity nonhealing wound. She states on 03/16/2022 she fell through the deck and down 4 steps resulting in a laceration to the anterior aspect of the left lower extremity. She did present to [facility] and underwent radiographs which were negative. She underwent irrigation and closure of the laceration with 12 interrupted sutures superficially following absorbable deep closure. She was empirically started on Keflex and doxycycline also added. She followed up in the [facility] ED on 03/23/2023 due to the wound not improving with localized redness. Keflex was stopped and Augmentin was initiated. She did follow-up with her PCP office and underwent suture removal which that time some drainage was noted with some purulence and continued soreness about the wound. Augmentin was continued and she was referred to the wound care center for continued healing. Patient states she has finished the antibiotic and the redness and drainage have resolved. She denies N/V/F/chills. Denies further complaints. Subjective Subjective Mrs. Geovani Dyer is a 48-year-old female presenting for follow-up with wound care center for laceration to left leg. Patient is status post excisional debridement with application of skin graft. She states that her wound is looking a lot more beefy granular. She continues to change her dressing, Solange and border foam daily. She denies any drainage. She denies any redness or malodor. She denies any new onset of trauma. She denies constitutional symptoms. No other pedal complaints at this time Objective Data Objective Data Vital Signs: Vital Signs Temp Pulse Resp BP O2 Del Method 97.7 F L 72 18 130/79 H Room Air 06/15/23 10:40 06/15/23 10:40 06/15/23 10:40 06/15/23 10:40 06/15/23 10:40 Oxygen Delivery Method Room Air Weight: 98.43 kg Body Mass Index (BMI) 35.0 Physical Exam Narrative Neurovascular status unchanged. Full-thickness ulceration to the left anterior leg measuring 0.6 x 1.3 x 0.1cm. Wound base is granular in nature with no sign of infection. No pain with calf compression. Excisional debridement down to and including subcutaneous tissue with number 5 mm dermal curette to the full-thickness ulceration to the anterior left leg. Predebridement measurements were 0.5 x 1.2 x 0.1 cm. Postdebridement measurements are 0.6 x 1.3 x 0.1 cm. Ulceration was dressed with Solange, and border foam. Tubigrip donned. Debridement Note Debridement Note Debridement Free Text: Excisional debridement down to and including subcutaneous tissue with number 5 mm dermal curette to the full-thickness ulceration to the anterior left leg. Predebridement measurements were 0.5 x 1.2 x 0.1 cm. Postdebridement measurements are 0.6 x 1.3 x 0.1 cm. Ulceration was dressed with Solange, and border foam. Tubigrip donned. Post-Debridement Measurements and Additional Note: Post-Debridement Measurements/Treatment WC - Nurse 1 - General Ulcer Assessment Start: 06/15/23 10:40 Freq: Status: Active Protocol: BUSTER Activity Type Activity Date Activity User E-sign Co-sign Detail Recorded Client Recorded Date Recorded By Document 06/15/23 10:40 KW Desktop 06/15/23 10:43 KW 06/15/23 10:40 WC - Today's Visit Information Type of service Follow-up Visit (Physician/MACHINE TECHNICIAN ) Arrival Mode Ambulatory Patient Identification Verified (Name & Yes ) Height and Weight Body Mass Index (BMI) 35.0 BMI Classification Obese Vital Signs Temperature (97.8 F-99.1 F) 97.7 F L Temperature Source Temporal Pulse Rate (60-100) 72 Pulse Location Monitor Respiratory Rate (12-18) 18 Respiratory rate source Observation Oxygen Delivery Method Room Air Blood Pressure (90/60-120/80) 130/79 H Blood Pressure Mean (mm Hg) 96 Source Monitor Position Semi-Fowlers Blood Pressure Location Left Arm History Since Last Visit- (Skip if this is Patient's initial visit) Have you changed medications since your No last visit? Any new allergies or adverse reactions No Had a fall/change in ADL's that may No increase risk of falls Signs or symptoms of abuse and/or No neglect since last visit Have you been in the hospital since your No last visit? Has dressing in place as prescribed Yes Has compression in place as prescribed No Has offloadiing in place as prescribed No Experienced any changes in pain level or No management Left Footwear Regular Shoe Right Footwear Regular Shoe Pain Scale: 0-10 Numeric Is Patient Pain Free? Yes WC - Nurse 1 - General Ulcer Measurement Start: 06/15/23 10:40 Freq: Status: Active Protocol: Activity Type Activity Date Activity User E-sign Co-sign Detail Recorded Client Recorded Date Recorded By Document 06/15/23 10:40 KW Desktop 06/15/23 10:43 KW 06/15/23 10:40 Wound Center Nurse 1 1-Left leg ulcer -Exudate Amt Small -Exudate Type Serosanguineous -Wound Margin Distinct, Outline Attached -Granulation Amt Large (67-100%) -Granulation Quality Red -Texture (Jenny-wound Skin Appearance) Assessed, Scarring -Moisture (Jenny-wound Skin Appearance) Assessed -Color (Jenny-wound Skin Appearance) Assessed, Erythema -Temperature (Jenny-wound Skin No Abnormality Appearance) (Pt Warm) -Ulcer Cleansing Rinsed/ Irrigated with Saline -Foul Odor after Cleansing No -Anesthetic Used 5% Lidocaine Gel Assessment/Plan Assessment/Plan (1) Non-pressure chronic ulcer of left calf with fat layer exposed: CODE(S): L97.222 - Non-pressure chronic ulcer of left calf with fat layer exposed PLAN: Patient was examined evaluated. All findings were discussed with the patient. All questions were answered to the patient's satisfaction. Excisional debridement down to and including subcutaneous tissue with number 5 mm dermal curette to the full-thickness ulceration to the anterior left leg. Predebridement measurements were 0.5 x 1.2 x 0.1 cm. Postdebridement measurements are 0.6 x 1.3 x 0.1 cm. Ulceration was dressed with Solange, and border foam. Tubigrip donned. Follow-up in 2 weeks. (2) Delayed healing of traumatic wound: CODE(S): T14.8XXD - Other injury of unspecified body region, subsequent encounter (3) Laceration without foreign body, left lower leg, initial encounter: CODE(S): S81.812A - Laceration without foreign body, left lower leg, initial encounter
[2023-06-29 13:58] VITALS: BP 131/77; PULSE 80; RESP 18; TEMP 36.4; BMI 35.0
--- NOTE | 2023-06-29 14:17 | PCM.WC.PN ---
History of Present Illness Date of Service: 06/29/23 Chief Complaint: Nonhealing left lower extremity wound History of Wound: Patient is a 48-year-old female who follows to the wound care center today with complaint of left lower extremity nonhealing wound. She states on 03/16/2022 she fell through the deck and down 4 steps resulting in a laceration to the anterior aspect of the left lower extremity. She did present to [facility] and underwent radiographs which were negative. She underwent irrigation and closure of the laceration with 12 interrupted sutures superficially following absorbable deep closure. She was empirically started on Keflex and doxycycline also added. She followed up in the [facility] ED on 03/23/2023 due to the wound not improving with localized redness. Keflex was stopped and Augmentin was initiated. She did follow-up with her PCP office and underwent suture removal which that time some drainage was noted with some purulence and continued soreness about the wound. Augmentin was continued and she was referred to the wound care center for continued healing. Patient states she has finished the antibiotic and the redness and drainage have resolved. She denies N/V/F/chills. Denies further complaints. Subjective Subjective Mrs. Geovani Dyer is a 48-year-old female presenting for follow-up with wound care center for laceration to left leg. Patient is status post excisional debridement with application of skin graft. Patient states her wound looks healed as she has been applying home dressing changes at home, Brannon and border foam daily. She denies any drainage. She denies any redness or malodor. She denies any new onset of trauma. She denies constitutional symptoms. No other pedal complaints at this time Objective Data Objective Data Vital Signs: Vital Signs Temp Pulse Resp BP O2 Del Method 97.5 F L 80 18 131/77 H Room Air 06/29/23 13:58 06/29/23 13:58 06/29/23 13:58 06/29/23 13:58 06/29/23 13:58 Oxygen Delivery Method Room Air Weight: 98.43 kg Body Mass Index (BMI) 35.0 Physical Exam Narrative Neurovascular status is unchanged. Full-thickness ulceration to the anterior aspect of the left leg is now healed. Evidence of healed skin over the ulceration. No pain on palpation. No open lesions or abrasions. No pain with calf compression. Debridement Note Debridement Note Post-Debridement Measurements and Additional Note: Post-Debridement Measurements/Treatment WC - Nurse 1 - General Ulcer Assessment Start: 06/15/23 10:40 Freq: Status: Active Protocol: BUSTER Activity Type Activity Date Activity User E-sign Co-sign Detail Recorded Client Recorded Date Recorded By Document 06/15/23 10:40 KW Desktop 06/15/23 10:43 KW Document 06/29/23 13:58 KW Desktop 06/29/23 14:04 KW 06/15/23 06/29/23 10:40 13:58 WC - Today's Visit Information Type of service Follow-up Visit Follow-up Visit (Physician/CUPOLA TAPPER (Physician/CUPOLA TAPPER ) ) Arrival Mode Ambulatory Ambulatory Patient Identification Verified (Name & Yes Yes ) Height and Weight Body Mass Index (BMI) 35.0 35.0 BMI Classification Obese Obese Vital Signs Temperature (97.8 F-99.1 F) 97.7 F L 97.5 F L Temperature Source Temporal Temporal Pulse Rate (60-100) 72 80 Pulse Location Monitor Monitor Respiratory Rate (12-18) 18 18 Respiratory rate source Observation Observation Oxygen Delivery Method Room Air Room Air Blood Pressure (90/60-120/80) 130/79 H 131/77 H Blood Pressure Mean (mm Hg) 96 95 Source Monitor Monitor Position Semi-Fowlers Semi-Fowlers Blood Pressure Location Left Arm Left Arm History Since Last Visit- (Skip if this is Patient's initial visit) Have you changed medications since your No No last visit? Any new allergies or adverse reactions No No Had a fall/change in ADL's that may No No increase risk of falls Signs or symptoms of abuse and/or No No neglect since last visit Have you been in the hospital since your No No last visit? Has dressing in place as prescribed Yes Yes Has compression in place as prescribed No No Has offloadiing in place as prescribed No No Experienced any changes in pain level or No No management Left Footwear Regular Shoe Regular Shoe Right Footwear Regular Shoe Regular Shoe Pain Scale: 0-10 Numeric Is Patient Pain Free? Yes Yes JACE - Nurse 1 - General Ulcer Measurement Start: 06/15/23 10:40 Freq: Status: Active Protocol: Activity Type Activity Date Activity User E-sign Co-sign Detail Recorded Client Recorded Date Recorded By Document 06/15/23 10:40 KW Desktop 06/15/23 10:43 KW Document 06/29/23 13:58 KW Desktop 06/29/23 14:04 06/15/23 06/29/23 10:40 13:58 Wound Center Nurse 1 1-Left leg ulcer -Current Size (cm) - Length 0 -Current Size (cm) - Width 0 -Current Size (cm) - Depth 0 -Total Square Cm 0 -Date of Last Picture (Recall this 06/29/23 field) -Photo Taken Yes -Exudate Amt Small -Exudate Type Serosanguineous -Wound Margin Distinct, Outline Attached -Granulation Amt Large (67-100%) -Granulation Quality Red -Texture (Jenny-wound Skin Appearance) Assessed, Scarring -Moisture (Jenny-wound Skin Appearance) Assessed -Color (Jenny-wound Skin Appearance) Assessed, Erythema -Temperature (Jenny-wound Skin No Abnormality Appearance) (Pt Warm) -Ulcer Cleansing Rinsed/ Irrigated with Saline -Foul Odor after Cleansing No -Anesthetic Used 5% Lidocaine Gel -Wound Comment(s) no open area noted. WC - Nurse 2 - General Ulcer CM Notes Start: 06/15/23 10:40 Freq: Status: Active Protocol: Activity Type Activity Date Activity User E-sign Co-sign Detail Recorded Client Recorded Date Recorded By Document 06/15/23 10:54 Flipboard 06/15/23 10:55 Document 06/29/23 14:12 Laptop 06/29/23 14:13 06/15/23 06/29/23 10:54 14:12 Wound Center Nurse 2 1-Left leg ulcer -Time 10:55 -Correct Patient Yes No -Correct Side, Site, Position Yes No -Correct Procedure Yes No -Procedure Performed Yes No -Type of Procedure Debridement -Clinical Debridement Subcutaneous -Tissue Removed Subcutaneous -Post Debridement (cm) - Length 0.6 0 -Post Debridement (cm) - Width 1.3 0 -Post Debridement (cm) - Depth 0.1 0 -Total Square (Post) (cm) 0.78 0 -Area of Debridement (cm) - Length 0.6 0 -Area of Debridement (cm) - Width 1.3 0 -Total Square (Area) (cm) 0.78 0 -Tunneling No -Undermining/Tunneling No -Circular Undermining No -Wound/Ulcer Outcome Not Healed Healed- Epithelialized -Ulcer Cleansing Rinsed/ Irrigated with Saline -Foul Odor after Cleansing No -Bioengineered Tissue No -Bleeding Controlled with Pressure -Treatment Response Procedure Tolerated Well -Offloading No -Debridement - Subq, 1st 20sq cm Yes Pain Scale: 0-10 Numeric Is Patient Pain Free? Yes Yes - Nurse 3 - General Ulcer D/C NN Start: 06/15/23 10:40 Freq: Status: Active Protocol: Activity Type Activity Date Activity User E-sign Co-sign Detail Recorded Client Recorded Date Recorded By Document 06/15/23 10:55 Laptop 06/15/23 10:56 Document 06/29/23 14:13 Laptop 06/29/23 14:13 06/15/23 06/29/23 10:55 14:13 Wound Care Center Nurse 3 1-Left leg ulcer -Ulcer Cleansing Rinsed/ Irrigated with Saline -Foul Odor after Cleansing No -Primary Dressing Applied Mepilex Border -Other Dressing brannon--- patient's supply -Mepilex Border 1 Left -Tubular Bandage Single Layer -Size of Tubigrip Used Size E -Size E ($) 1 Pain Scale: 0-10 Numeric Is Patient Pain Free? Yes Yes - Visit Discharge Discharge Condition Stable Stable Ambulatory Status Ambulatory Ambulatory Transportation Private Auto Private Auto Medication Reconcilliation completed & Yes Yes provided to patient/care provider Clinical Summary of Care Provided Yes Yes Assessment/Plan Assessment/Plan (1) Non-pressure chronic ulcer of left calf with fat layer exposed: CODE(S): L97.222 - Non-pressure chronic ulcer of left calf with fat layer exposed PLAN: Patient was examined and evaluated. All findings were discussed with the patient. All questions were answered to the patient's satisfaction. Patient's wound to the anterior aspect of the left leg is now healed. There is no concern for ongoing treatment needed at the wound care center. Patient will be discharged and follow-up as needed. The patient has any questions or concerns she can reach out to Dr. Montgomery for follow-up at his private office as needed. (2) Delayed healing of traumatic wound: CODE(S): T14.8XXD - Other injury of unspecified body region, subsequent encounter
== END 2023-06-29 16:20 | disposition home or self-care (01) ==
LOC: WC 13:45
PROVIDERS: PCP Pharmacist Pharmacist Clinician (PhC)/ Clinical Pharmacy Specialist; Referring Provider Pharmacist Pharmacist Clinician (PhC)/ Clinical Pharmacy Specialist; Visit Provider Podiatrist Foot & Ankle Surgery
DX: L97.222 Non-pressure chronic ulcer of left calf with fat layer exposed (principal); S81.812S Laceration without foreign body, left lower leg, sequela; W10.9XXS Fall (on) (from) unspecified stairs and steps, sequela
CPT/HCPCS: 11042; 99213; G0463

== ENCOUNTER → 2023-10-31 | Outpatient (CLI) | payer OTHER, SELFPAY | END | disposition home or self-care (01) | LOC: PSN 10:40 | PROVIDERS: PCP Pharmacist Pharmacist Clinician (PhC)/ Clinical Pharmacy Specialist; Referring Provider Internal Medicine Critical Care Medicine; Visit Provider Internal Medicine Critical Care Medicine | DX: R06.02 Shortness of breath (principal) | CPT/HCPCS: 94060; 94726; 94729 ==

== ENCOUNTER → 2023-12-26 | Outpatient (CLI) | payer OTHER, SELFPAY ==
--- NOTE | 2023-12-26 16:30 | US_ITS ---
INDICATION: thyroid nodule EXAMINATION: Ultrasound US Thyroid (eg thyroid, parathyroid, parotid) TECHNIQUE: Davis scale and color doppler imaging was performed of the thyroid gland. COMPARISON: None. FINDINGS: RIGHT THYROID LOBE: Right thyromegaly. LEFT THYROID LOBE: 5.2 x 2.4 x 1.8 cm. Homogeneous echotexture with normal vascularity. 1. Lower pole 2.4 x 1.9 x 1.6 cm mixed cystic solid hypoechoic nodule wider than tall with smooth margins and no calcifications, TI-RAD 3. 2. Upper pole 0.7 x 0.8 x 0.5 cm mixed cystic solid isoechoic nodule wider than tall with smooth margins and no calcifications, TI-RAD 2. 3. Additional smaller 3 mm solid hypoechoic nodule wider than tall with smooth margins and no calcifications, TI-RAD 4. ISTHMUS: 0.4 cm. No thyroid nodules are present. Adjacent to left thyroid there is a 1.5 x 0.6 x 1.1 cm lymph node with symmetric cortex and preserved fatty hilum. US/Thyroid IMPRESSION: Absent right thyroid. Multiple left thyroid nodules, largest 2.4 cm TI RAD 3, for which 1 year follow-up ultrasound is recommended. Electronically Signed: Ankush Tucker MD at 3:38 EDT ,
== END | disposition home or self-care (01) ==
LOC: US 16:29
PROVIDERS: PCP Pharmacist Pharmacist Clinician (PhC)/ Clinical Pharmacy Specialist; Referring Provider Internal Medicine Endocrinology, Diabetes & Metabolism; Visit Provider Internal Medicine Endocrinology, Diabetes & Metabolism
DX: E04.1 Nontoxic single thyroid nodule (principal)
CPT/HCPCS: 76536

== ENCOUNTER 2024-10-25 11:30 | Outpatient (CLI) | payer OTHER, SELFPAY ==
[2024-10-25 15:30] LABS: Microalbumin,Random Urine < 12.0 mg/L (NO RANGE EST.); Microalbumin:Creatinine Ratio UNABLE TO CALCULATE mg/g CRE
[2024-10-25 15:46] LABS: ALB/GLOB Ratio 1.5 RATIO (0.9-2.4); AST(SGOT) 18 U/L (<=31); Alanine Aminotransfer ALT/SGPT 22 U/L (<=34); Albumin, Serum 4.2 g/dL (3.5-5.0); Alkaline Phosphatase 78 U/L (35-104); Anion Gap 11 (5-15); BUN 18 mg/dL (4-19); BUN/Creat Ratio 19.9 RATIO (10-20); Calcium,Total 9.6 mg/dL (7.6-11.0); Chloride 102 mmol/L (98-108); Creatinine, Serum 0.91 mg/dL (0.70-1.20); EST Glomerular Filtration Rate 77 (>60); Globulin 2.9 g/dL (2.2-4.2); Glucose 86 mg/dL (70-99); Protein, Total 7.1 g/dL (5.9-8.4); Sodium Level 139 mmol/L (133-145); Total Bilirubin 0.39 mg/dL (0.00-1.30); Vitamin D,25 Hydroxy 35.4 ng/mL (30-100)
[2024-10-25 18:29] LABS: Cholesterol 157 mg/dL (<=200); High Density Lipoprotein 54 mg/dL; Low Density Lipoprotein Calc. 84 mg/dL; Triglycerides 95 mg/dL; Very Low Density Lipoprotein 19 mg/dL (5-40); cholesterol:hdl ratio screen 2.93
== END 2024-10-25 23:59 | disposition home or self-care (01) ==
LOC: BIMLAB 11:32
PROVIDERS: PCP Pharmacist Pharmacist Clinician (PhC)/ Clinical Pharmacy Specialist; Referring Provider Internal Medicine Endocrinology, Diabetes & Metabolism; Visit Provider Internal Medicine Endocrinology, Diabetes & Metabolism
DX: I10 Essential (primary) hypertension (principal); E11.65 Type 2 diabetes mellitus with hyperglycemia; E55.9 Vitamin D deficiency, unspecified
CPT/HCPCS: 36415; 80053; 80061; 82043; 82306; 82570; 84443